=== PATIENT | female | born 1975 | race Caucasian/White ===

== ENCOUNTER 2025-01-27 16:35 | Emergency (ER) | payer OTHER, SELFPAY ==
[2025-01-27 16:39] VITALS: BP 90/58; PULSE 119; RESP 20; TEMP 36.9; O2SAT 97; BMI 30.8
[2025-01-27 17:20] LABS: Hematocrit 46.1 % (37-47); Hemoglobin 16.0 g/dL (12.0-15.0); Immature Granulocytes Count 0.080 X10^3/uL (0.0-0.0); Mean Corp Hgb Conc 34.7 g/dL (32-36); Mean Corpuscular Volume 80.6 fL (81-99); NRBC Flagged by Analyzer 0 % (0-5); POSITIVE COUNT YES; RBC Distribution Width CV 13.2 % (11.6-14.6); RBC Distribution Width SD 38.5 fl (35.1-43.9); Red Blood Count 5.72 M/mm3 (4.2-5.4); White Blood Count 19.8 K/mm3 (4.4-11.0)
[2025-01-27] MEDS: Famotidine 200 MG/20 ML MDV 20 MG in 0.9% Normal Saline (Pres. free 8 ML 300 MG IV (17:21)
[2025-01-27] MEDS: 0.9% Normal Saline (1000mL) 1,000 ML 1000 ML IV (17:21)
--- NOTE | 2025-01-27 17:27 | EDS_ITS ---
HPI History of Present Illness Chief Complaint: Nausea/Vomiting Detail of Chief Complaint: Nausea vomiting and epigastric pain Informant: patient and spouse/S.O. Onset/Context/Timing Onset: Today and Yesterday Context: Sudden Onset Timing: Continuous (Epigastric pain is constant.) and Intermittent (Nausea and vomiting is intermittent. Patient reports 20-30 episodes of vomiting) Quality: Burning sensation in epigastrium worse after vomiting Location: Epigastrium Current Severity: Mild Maximum Severity: Severe Worsened by: Vomiting Relieved by: Nothing Associated Symptoms Associated Symptoms: History of gastroparesis due to type 2 diabetes on Mounjaro Narrative Narrative: Patient is a 49-year-old woman with diabetes complicated with gastroparesis. She was seen at outside facility. She was treated with Bentyl and Reglan. She was discharged with Bentyl and Reglan. She states anytime she attempts to take the Bentyl or Reglan she vomits. She has not noted coffee grounds or blood in her emesis. She denies black or maroon-colored stool. She denies cardiac or respiratory symptoms. She does endorse thirst, dry mouth and lightheadedness. She has had decreased urine output as well. She denies rash. She denies feeling bloated. Patient stated you can pump my stomach to get rid of the contents. Patient states she cannot lie down flat because she gets dizziness because of her POTS. I informed her this is a normal symptom for POTS. She was asked if she has had any head trauma. She states she did fall and hit the back of her head. Suspect that she has a postconcussive syndrome since this happened several days ago. When she describes vertigo. She also has nausea with this. Prior similar symptoms: Yes Recent Illness/Hospitalization: Yes [facility] Medical History Gregg disease Anxiety Type 2 diabetes mellitus Cholecystectomy planned Home Medications ?Medication ?Instructions ?Recorded ?Last Taken ?Type metoclopramide HCl 10 mg tablet 10 mg PO 4X/DAY PRN He adache #30 01/27/25 Unknown Rx tabs Allergy/AdvReac Type Severity Reaction Status Date / Time amoxicillin (From Augmentin) Allergy Abd Verified 01/27/25 16:39 cramps/diarrhea cefaclor (From Ceclor) Allergy Abd Verified 01/27/25 16:39 cramps/diarrhea cefuroxime (From Ceftin) Allergy Abd Verified 01/27/25 16:39 cramps/diarrhea clarithromycin (From Biaxin) Allergy Abd Verified 01/27/25 16:39 cramps/diarrhea clavulanic acid (From Allergy Abd Verified 01/27/25 16:39 Augmentin) cramps/diarrhea Latex, Natural Rubber Allergy Swelling Verified 01/27/25 16:37 pineapple Allergy Anaphylaxis Verified 01/27/25 16:37 Sulfa (Sulfonamide Allergy Abd Verified 01/27/25 16:39 Antibiotics) cramps/diarrhea sulfamethoxazole (From Allergy Vomiting Verified 01/27/25 16:39 Bactrim) trimethoprim (From Bactrim) Allergy Vomiting Verified 01/27/25 16:39 Surgical History H/O hernia repair Hx of tonsillectomy Social History Smoking Status: Never smoker ROS ROS ED Constitutional Constitutional ED: Denies chills, fever(s), subjective, sweats or weight loss Eyes Eyes: Denies blurry vision or change in vision ENT ENT ED: Reports other Details: Thirst and dry mouth ; Denies ear pain, rhinorrhea or sore throat Cardiovascular Cardiovascular: Denies chest pain, orthopnea, palpitations or racing heartbeat Respiratory/Chest Respiratory/Chest: Denies cough, dyspnea, dyspnea on exertion or orthopnea Gastrointestinal Gastrointestinal: Reports abdominal pain, nausea and vomiting; Denies constipation, diarrhea or melena Genitourinary Genitourinary ED: Reports other Details: Decreased urine output. ; Denies dysuria, hematuria or urinary frequency Musculoskeletal Musculoskeletal: Denies arthralgias or myalgias Neurologic Neurologic: Denies headache(s), paresthesias or weakness Psychiatric Psychiatric: Denies anxiety or depression Hematologic/Lymphatic Hematologic/Lymphatic: Reports systems reviewed and no addt'l complaints, except as documented EXAM Physical Exam Const Vital Signs: 01/27/25 16:39 01/27/25 17:44 01/27/25 18:00 Temperature 98.5 F Temperature Source Oral Pulse Rate 119 H 83 78 Respiratory Rate 20 H 16 Blood Pressure 90/58 L 116/73 103/68 Blood Pressure Mean 68 87 79 Pulse Ox 97 98 Oxygen Delivery Method Room Air Positive well nourished and well developed Constitutional Narrative: Patient is hypotensive and tachycardic. states she is very lightheaded when she stands and almost falls. General Appearance ED: well developed; Negative for pallor HEENT HEENT Narrative: Head is atraumatic normocephalic. There is no clinical signs of basilar skull fracture. Eyes PERRL and EOMs intact bilaterally General Eye ED: Negative for pale conjunctiva or scleral icterus Neck no lymphadenopathy, supple and no JVD Chest Wall inspection of chest normal and palpation of chest normal Resp normal respiratory effort and clear to auscultation bilaterally Cardio regular rate, regular rhythm, S2 normal heart sound and no murmurs Rate: tachycardic GI normal to inspection, nondistended, normoactive bowel sounds, non-distended and no masses; Negative for non-tender or hepatosplenomegaly Palpation: soft and tender epigastric; Negative for guarding or rebound tenderness present Back/Spine no CVA tenderness Extremity normal to inspection General Extremety ED: Negative for edema or tenderness General Extremity: Negative for edema Neuro oriented x3 and CN's II-XII intact bilaterally Sensorium / Orientation: alert Psych mental status grossly normal Skin no rashes or lesions noted, no wounds and skin turgor normal General Skin Exam: Negative for jaundice or pallor MDM MDM MDM Narrative Medical decision making narrative: Since patient has gastroparesis due to diabetes and, found/compound by the fact that she is on Wegovy will treat with Reglan. Clinically she is dehydrated and hypotensive 1 L normal saline was ordered. She also will receive Pepcid for her epigastric pain which I suspect is either esophagitis gastritis from the vomiting. Will review prior records. Blood work was obtained to assess glucose, CO2 anion gap and electrolytes and more importantly her renal function. Lab Data Attestation: I reviewed the patient's lab results. Lab results narrative: White count is elevated 19.8 thousand with a shift. This is probably due to her nausea and vomiting. Electrolyte panel is remarkable for an elevated glucose of 239 with normal elevated anion gap. This most likely is due to ketosis from nausea vomiting and significant dehydration. Patient blood pressure did respond to the liter of normal saline. Labs: Laboratory Results - last 24 hr 01/27/25 17:00 WBC 19.8 H RBC 5.72 H Hgb 16.0 H Hct 46.1 MCV 80.6 L MCH 28.0 MCHC 34.7 RDW Std Deviation 38.5 RDW Coeff of Katrina 13.2 Plt Count TNP MPV TNP Immature Gran % (Auto) 0.400 Neut % (Auto) 87.4 H Lymph % (Auto) 7.2 L [place] % (Auto) 4.5 Eos % (Auto) 0.0 Baso % (Auto) 0.5 Absolute Neuts (auto) 17.3 H Absolute Lymphs (auto) 1.43 Nucleated RBC % 0 Differential Comment SCANNED Platelet Estimate ADEQUATE Sodium 132 L Potassium 4.0 Chloride 93 L Carbon Dioxide 18.2 L Anion Gap 21 H BUN 12 Creatinine 0.77 Estim Creat Clear Calc 116.48 Est GFR (MDRD) Non-Af 95 BUN/Creatinine Ratio 15.7 Glucose 239 H Calcium 9.5 Total Bilirubin 1.14 AST 32 ALT 22 Alkaline Phosphatase 101 Total Protein 8.4 Albumin 4.9 Globulin 3.6 Albumin/Globulin Ratio 1.4 Lipase 15 Serum , Qual NEGATIVE Treatment and Re-Evaluation :: Patient passed p.o. challenge. Discharge Plan Triage Chief Complaint: Nausea/Vomiting ED Provider: Melvin Russell Dx/Rx/DC Orders Clinical Impression: Intractable vomiting with nausea, Hypotension due to hypovolemia, Acute dehydration, Type 2 diabetes mellitus with gastroparesis, Adverse drug reaction, High anion gap metabolic acidosis Instructions: ED Diabetic Gastroparesis Prescriptions: New metoclopramide HCl 10 mg tablet 10 mg PO 4X/DAY PRN (Reason: Headache) Qty: 30 0RF Rx Instructions: 1/2-hour AC and at bedtime Primary Care Provider: Karena Thompson Referrals: Karena Thompson MD [Primary Care Provider, Family Practice] - 3-5 Days Activity Restrictions/Additional Instructions: You will need to talk to your doctor regarding use of Mounjaro be since this is exacerbating your gastroparesis. Take Reglan 10 mg 1/2-hour before meals and at bedtime. Print Language: Faroese Disposition Disposition: Home, Self Care
[2025-01-27 17:34] LABS: Lipase 15 U/L (13-75)
[2025-01-27 17:36] LABS: AST(SGOT) 32 U/L (<=31); Alanine Aminotransfer ALT/SGPT 22 U/L (<=34); Albumin, Serum 4.9 g/dL (3.5-5.0); Alkaline Phosphatase 101 U/L (35-104); Anion Gap 21 (5-15); BUN 12 mg/dL (4-19); BUN/Creat Ratio 15.7 RATIO (10-20); Calcium,Total 9.5 mg/dL (7.6-11.0); Carbon Dioxide 18.2 mmol/L (21.0-32.0); Chloride 93 mmol/L (98-108); Estimated Creatinine Clearance 116.48 ml/min (50-250); Globulin 3.6 g/dL (2.2-4.2); Glucose 239 mg/dL (70-99); Potassium 4.0 mmol/L (3.3-5.1)
[2025-01-27 17:44] VITALS: BP 116/73; PULSE 83; RESP 16; O2SAT 98
[2025-01-27 17:44] LABS: Internal QC Validated? YES +Cl - CLEAR BKGD; Pregnancy, Serum, hCG Quali. NEGATIVE Negative; Record Kit Lot#, Serum Preg. 964736
[2025-01-27 18:00] VITALS: BP 103/68; PULSE 78
[2025-01-27 18:19] LABS: Differential Comment SCANNED
[2025-01-27 19:00] VITALS: BP 115/78; PULSE 92; RESP 16; O2SAT 100
[2025-01-27 19:05] VITALS: BP 116/78; PULSE 98; RESP 16; TEMP 36.6; O2SAT 100
== END 2025-01-27 19:23 | disposition home or self-care (01) ==
PROVIDERS: Emergency Provider Emergency Medicine; PCP Family Medicine; Visit Provider Emergency Medicine
DX: R11.2 Nausea with vomiting, unspecified (principal); E11.43 Type 2 diabetes mellitus with diabetic autonomic (poly)neuropathy; E86.0 Dehydration; E86.1 Hypovolemia; K31.84 Gastroparesis; E87.20 Acidosis, unspecified; T50.915A Adverse effect of multiple unspecified drugs, medicaments and biological substances, initial encounter
CPT/HCPCS: 80053; 83690; 84703; 85025; 96365; 96375; 96376; 99284; A4216

== ENCOUNTER 2025-01-28 02:28 | Inpatient (IN) | payer OTHER, SELFPAY ==
[2025-01-28] VITALS (7 sets, daily range): BP systolic 131–183; BP diastolic 77–101; PULSE 91–100; RESP 15–18; TEMP 36.6–37.3; O2SAT 97–99; BMI 30.7
--- NOTE | 2025-01-28 02:56 | CT_ITS ---
PROCEDURE: ABDOMEN/PELVIS W IV CONT ONLY 01/28/2025 REASON FOR EXAM: ABD PAIN TECHNIQUE: Procedure Code: [id number] Modality: CT Procedure: ABDOMEN/PELVIS W IV CONT ONLY Coronal and Sagittal reconstruction series were provided. CONTRAST: isovue 370 VOLUME: 100 mL One or more dose reduction techniques were used (e.g., Automated exposure control, adjustment of the mA and/or kV according to patient size, use of iterative reconstruction technique. RADIATION DOSE SUMMARY: CTDI Vol 13.71 mGy DLP :713.64 mGycm COMPARISON: none FINDINGS: Average sized liver showing homogenous parenchymal attenuation with fatty changes. prominent extra-hepatic biliary tracts. Cholecystectomy clips. Normal appearance of the pancreas with clear surrounding fat planes. The spleen, adrenal glands and IVC are unremarkable. Splenule noted. Vascular atheromatous calcifications. Both kidneys are of average size and showing smooth outline with preserved parenchymal thickness. No renal calculi. No hydronephrosis. Left renal small hypodense cortical cyst. Distension of the urinary bladder showing no obvious masses. No obvious masses related to the pelvic viscera. Few pelvic phleboli. The appendix is not identified. Colonic fecal loading. The small bowel loops are unremarkable. The stomach is unremarkable. No ascites or free air. No obvious pathologically enlarged lymph nodes. Scanned osseous structures show no osseous destruction. Mild spondylosis. Scanned lung bases show no obvious abnormalities. Elevated left diaphragmatic copula. CT/Abdomen/Pelvis W IV Cont ONLY IMPRESSION: No acute pelvi-abdominal abnormalities, collections or free air. Hepatic steatosis. [facility]
[2025-01-28] MEDS: 0.9% Normal Saline (1000mL) 1,000 ML 999 ML IV ×2 (03:11→06:43)
[2025-01-28 03:24] LABS: Mucous, Urine 0 SEEN /hpf (<or=2+)
[2025-01-28 03:25] LABS: Hematocrit 41.2 % (37-47); Hemoglobin 13.9 g/dL (12.0-15.0); Immature Granulocytes Count 0.090 X10^3/uL (0.0-0.0); Mean Corp Hgb Conc 33.7 g/dL (32-36); Mean Corpuscular Volume 80.3 fL (81-99); Mean Platelet Vol. 10.6 fl (6.2-12.0); NRBC Flagged by Analyzer 0 % (0-5); Platelet Count 376 K/mm3 (150-450); RBC Distribution Width CV 13.2 % (11.6-14.6); RBC Distribution Width SD 38.5 fl (35.1-43.9); Red Blood Count 5.13 M/mm3 (4.2-5.4); White Blood Count 18.6 K/mm3 (4.4-11.0)
[2025-01-28 03:26] LABS: Color, Urine Yellow (Yellow); Glucose, Dipstick 1000 mg/dl (Normal); Leukocyte Esterase-Dipstick Negative /ul (Negative); Nitrite-Dipstick Negative (Negative); Occult Blood-Urine Negative /ul (Negative); Protein-Dipstick 30 mg/dl (Negative); Specific Gravity, Urine 1.020 (1.002-1.030); Urine Bilirubin Dipstick Negative (Negative)
[2025-01-28 03:32] LABS: Ketone-Dipstick 150 mg/dl (Negative)
[2025-01-28 03:38] LABS: Red Blood Cells-Urine 0-5 SEEN /hpf (0-5); Squamous Epithelial Cells - UA 0-5 SEEN /hpf (5-10)
[2025-01-28 03:53] LABS: Lipase 27 U/L (13-75); Magnesium 2.3 mg/dL (1.5-2.2)
[2025-01-28 04:34] LABS: Osmolality, Serum 291 mOsm/KG (275-295)
[2025-01-28] MEDS: Ketorolac 30 MG/ML Syringe IV (04:39)
[2025-01-28] MEDS: Pantoprazole Sodium 40 MG in 0.9% Normal Saline (100mL MB+) 100 ML 300 MG IV (05:29)
[2025-01-28] MEDS: Lidocaine 2% Viscous15 ML UDC 15 ML PO (05:29)
[2025-01-28] MEDS: DiphenhydrAMINE 50 MG/ML Syringe 25 MG IV (05:41)
[2025-01-28 06:24] LABS: AST(SGOT) 32 U/L (<=31); Alanine Aminotransfer ALT/SGPT 16 U/L (<=34); Albumin, Serum 4.4 g/dL (3.5-5.0); Alkaline Phosphatase 92 U/L (35-104); Anion Gap 23 (5-15); BUN 11 mg/dL (4-19); BUN/Creat Ratio 14.9 RATIO (10-20); Bilirubin, Direct 0.30 mg/dL (0.00-0.30); Calcium,Total 8.9 mg/dL (7.6-11.0); Carbon Dioxide 13.4 mmol/L (21.0-32.0); Chloride 94 mmol/L (98-108); Globulin 3.3 g/dL (2.2-4.2); Glucose 276 mg/dL (70-99); Potassium 4.0 mmol/L (3.3-5.1)
[2025-01-28 06:38] LABS: BETA-HYDROXYBUTYRATE 3.6 mmol/L (0.0-0.3)
[2025-01-28 07:10] LABS: SITE Not entered; VBG BASE EXCESS -7 mmol/L (-1.0-3.5); VBG PO2 59 mmHg (25-40); VBG SO2 91 % (50-70); VBG TCO2 19 mmol/L (23-33)
--- NOTE | 2025-01-28 07:43 | EDS_ITS ---
HPI History of Present Illness Chief Complaint: Nausea/Vomiting Informant: patient and spouse/S.O. Narrative Narrative: Patient is a 49-year-old female with past medical history type 2 diabetes as well as gastroparesis secondary to this. She was seen last night secondary to bouts of nausea and vomiting. After receiving IV Reglan and IV fluids patient reported feeling better and was discharged home. She states she was prescribed Reglan. She states around midnight she began with return of symptoms and tried taking Reglan but cannot keep anything down. Therefore with return of intractable nausea and vomiting she presents for evaluation. [facility] Medical History Gregg disease Anxiety Type 2 diabetes mellitus Cholecystectomy planned Home Medications ?Medication ?Instructions ?Recorded ?Last Taken ?Type metoclopramide HCl 10 mg tablet 10 mg PO 4X/DAY PRN He adache #30 01/27/25 Unknown Rx tabs bupropion HCl 150 mg 24 hr tablet, 150 mg PO DAILY Unknown History extended release cyclobenzaprine 10 mg tablet 10 mg PO DAILY PRN pain 0 01/28/25 Unknown History hydroxyzine pamoate 50 mg capsule 50 mg PO TID PRN PRN allergies 01/28/25 Unknown History metformin 500 mg tablet 1,000 mg PO BID 01/28/25 Unk nown History mirtazapine 15 mg tablet 15 mg PO QHS 01/28/25 Unknow n History nitrofurantoin 1 cap PO BID 01/28/25 Unknow n History monohydrate/macrocrystals 100 mg capsule oxycodone 10 mg tablet 10 mg PO TID PRN PRN pain Unknown History sertraline 100 mg tablet 150 mg PO DAILY 01/28/25 Unk nown History sertraline 50 mg tablet 50 mg PO DAILY 01/28/25 Unkn own History tirzepatide 10 mg/0.5 mL 10 mg subcut QWEEK 01/28/25 Unknown History subcutaneous pen injector (Mounjaro) Allergy/AdvReac Type Severity Reaction Status Date / Time amoxicillin (From Augmentin) Allergy Abd Verified 01/27/25 16:39 cramps/diarrhea cefaclor (From Ceclor) Allergy Abd Verified 01/27/25 16:39 cramps/diarrhea cefuroxime (From Ceftin) Allergy Abd Verified 01/27/25 16:39 cramps/diarrhea clarithromycin (From Biaxin) Allergy Abd Verified 01/27/25 16:39 cramps/diarrhea clavulanic acid (From Allergy Abd Verified 01/27/25 16:39 Augmentin) cramps/diarrhea Latex, Natural Rubber Allergy Swelling Verified 01/27/25 16:37 pineapple Allergy Anaphylaxis Verified 01/27/25 16:37 Sulfa (Sulfonamide Allergy Abd Verified 01/27/25 16:39 Antibiotics) cramps/diarrhea sulfamethoxazole (From Allergy Vomiting Verified 01/27/25 16:39 Bactrim) trimethoprim (From Bactrim) Allergy Vomiting Verified 01/27/25 16:39 Surgical History H/O hernia repair Hx of tonsillectomy Social History Smoking Status: Never smoker ROS ROS ED Constitutional Constitutional ED: Reports other Details: Positive fatigue ; Denies chills or fever(s) Eyes Eyes: Denies change in vision ENT ENT ED: Denies sore throat Cardiovascular Cardiovascular: Denies chest pain Respiratory/Chest Respiratory/Chest: Denies cough or dyspnea Gastrointestinal Gastrointestinal: Reports abdominal pain, nausea and vomiting; Denies diarrhea Genitourinary Genitourinary ED: Denies dysuria Musculoskeletal Musculoskeletal: Reports myalgias Integumentary Denies rash Neurologic Neurologic: Denies headache(s) Hematologic/Lymphatic Hematologic/Lymphatic: Denies easy bleeding or easy bruising EXAM Physical Exam Const Vital Signs: 01/28/25 02:29 01/28/25 04:00 01/28/25 06:00 Temperature 98 F Temperature Source Oral Pulse Rate 97 99 97 Respiratory Rate 18 18 18 Blood Pressure 181/101 H 162/82 H 183/80 H Blood Pressure Mean 127 108 114 Pulse Ox 98 97 97 Oxygen Delivery Method Room Air Room Air Room Air 01/28/25 06:42 Temperature 98.2 F Temperature Source Pulse Rate 99 Respiratory Rate 16 Blood Pressure 162/86 H Blood Pressure Mean 111 Pulse Ox 97 Oxygen Delivery Method Positive well nourished and well developed General Appearance ED: well developed; Negative for pallor HEENT Reports dry mucous membranes HEENT Narrative: Normocephalic atraumatic No tongue or lip swelling no oral lesions no airway edema or compromise; no secondary findings in the posterior pharynx to suggest infection Mucous membranes are dry and tacky Mouth ED: Yes dry mucous membranes Mouth: dry mucous membranes Eyes PERRL and EOMs intact bilaterally General Eye ED: Negative for scleral icterus Neck supple Neck Narrative: No nuchal rigidity or meningeal signs Resp normal respiratory effort and clear to auscultation bilaterally Cardio regular rate and regular rhythm Rate: other Other Details: Heart is regular rate and rhythm Radial and carotid pulses are equal and symmetric GI non-distended and no masses GI Narrative: Abdomen is soft and nondistended with hypoactive bowel sounds. There is generalized pain with palpation of the abdomen greatest in the midepigastric region. No voluntary guarding or rigidity or pulsatile mass. No increased tympany noted Auscultation: normoactive bowel sounds and hypoactive bowel sounds Palpation: soft Extremity normal to inspection Neuro oriented x3, CN's II-XII intact bilaterally and no sensory deficits noted Sensorium / Orientation: alert Motor Exam: strength 5/5 throughout Psych Mood & Affect: anxious Skin no rashes or lesions noted and No skin turgor normal Skin Narrative: Skin turgor is increased General Skin Exam: Negative for jaundice or pallor MDM MDM MDM Narrative Medical decision making narrative: Patient arrived to the ER afebrile but was hypertensive. She was seen earlier and reportedly had resolution of symptoms only to return once again after arriving home and not responding to home therapy. With report of diabetes and gastroparesis as well as intractable nausea and vomiting there is high likelihood for an exacerbation of this leading to dehydration. With patient being a diabetic there is concern she could have DKA or HHS. With the elevated white count from the previous ER visit there is concern for potential secondary infection such as colitis or diverticulitis. Therefore repeat labs were obtained as well as a CT scan of the abdomen pelvis with IV contrast. This revealed no sign of acute infection or obstruction. Despite multiple doses of antiemetic medication patient is still having bouts of nausea and vomiting. Her serum bicarb is dropped from 18-13 and her beta hydroxybutyrate is elevated at 3.6. However her pH on the VBG is normal at 7.39 going against DKA. However based on her significant dehydration by physical exam and laboratory findings and the fact that her symptoms have been persistent I do feel her safest option is admission to the hospital for continued care. The patient was evaluated by the hospitalist and does agree to accept the patient to the floor for continued treatment. History & Record Review Discussion w/independent historian: Patient and Significant other Lab Data Attestation: I reviewed the patient's lab results. Labs: Laboratory Results - last 24 hr 01/28/25 01/28/25 03:13 03:15 WBC 18.6 H RBC 5.13 Hgb 13.9 Hct 41.2 MCV 80.3 L MCH 27.1 MCHC 33.7 RDW Std Deviation 38.5 RDW Coeff of Katrina 13.2 Plt Count 376 MPV 10.6 Immature Gran % (Auto) 0.500 Neut % (Auto) 81.6 H Lymph % (Auto) 11.4 L [place] % (Auto) 5.9 Eos % (Auto) 0.1 Baso % (Auto) 0.5 Absolute Neuts (auto) 15.2 H Absolute Lymphs (auto) 2.11 Nucleated RBC % 0 Sodium 130 L Potassium 4.0 Chloride 94 L Carbon Dioxide 13.4 L Anion Gap 23 H BUN 11 Creatinine 0.74 Est GFR (MDRD) Non-Af 100 BUN/Creatinine Ratio 14.9 Glucose 276 H Serum Osmolality 291 Lactic Acid < 1.0 Calcium 8.9 Magnesium 2.3 H Total Bilirubin 1.64 H Direct Bilirubin 0.30 AST 32 ALT 16 Alkaline Phosphatase 92 Total Protein 7.7 Albumin 4.4 Globulin 3.3 Lipase 27 b-Hydroxybutyric mmol/L 3.6 H Urine Color Yellow Urine Clarity Clear Urine pH 6.0 Ur Specific [place] 1.020 Urine Protein 30 H Urine Glucose (UA) 1000 H Urine Ketones 150 A* Urine Occult Blood Negative Urine Nitrite Negative Urine Bilirubin Negative Urine Urobilinogen Normal Ur Leukocyte Esterase Negative Urine RBC 0-5 SEEN Urine WBC 0 SEEN Ur Squamous Epith Cells 0-5 SEEN Urine Bacteria RARE Urine Mucus 0 SEEN ABG Data ABG results: ABG 01/28/25 07:06 Specimen Type JIMMY Sample Site Not entered VBG pH 7.40 VBG pO2 59 H VBG HCO3 18 L VBG Total CO2 19 L VBG O2 Sat (Calc) 91 H VBG Base Excess -7 L POC Mix VBG pCO2 Pt Tmp 29.0 L O2 Delivery Device Not entered Radiography Diagnostic Testing: Clinical Impression(s) from Imaging Studies Abdomen/Pelvis CT 01/28/25 02:56 IMPRESSION: No acute pelvi-abdominal abnormalities, collections or free air. Hepatic steatosis. [facility] Management Discussion w/another healthcare provider: Hospitalist Discharge Plan Dx/Rx/DC Orders Clinical Impression: Type 2 diabetes mellitus with gastroparesis, Intractable vomiting with nausea, Acute dehydration Disposition Disposition: Acute Care Hospital [facility]
--- NOTE | 2025-01-28 08:00 | PCM.HP.STD ---
[facility] - General General Date of Service: 01/28/25 Chief Complaint: nausea and vomiting. [facility] Narrative SERAFIN DONALDSON, is a 49 F with history of gastroparesis who presents with intractable nausea and vomiting. On Friday, patient took her Mounjaro but then on Friday started having nausea and vomiting. Was not persistent but became persistent over the past few days. Patient has been unable to eat since Friday, anything she eats or drinks she immediately vomits up. Patient has been experiencing milder symptoms with the Mounjaro when she takes it weekly but not as severe as this. Usually the symptoms last for few days and then go away but this has persisted. Patient was seen in the emergency room on the and felt better after receiving medications only to come back once the medications wore off. She is having abdominal pain due to the retching. Feels chills. [facility] Medical History (Updated 01/28/25 @ 08:[address] Steve Dockery, DO) Joce-Danlos syndrome Gregg disease Anxiety Type 2 diabetes mellitus Cholecystectomy planned Home Medications ?Medication ?Instructions ?Recorded ?Last Taken ?Type metoclopramide HCl 10 mg tablet 10 mg PO 4X/DAY PRN Headache #30 01/27/25 Unknown Rx tabs bupropion HCl 150 mg 24 hr tablet, 150 mg PO DAILY 01/28/25 Unknown History extended release cyclobenzaprine 10 mg tablet 10 mg PO DAILY PRN pain 01/28/25 Unknown History hydroxyzine pamoate 50 mg capsule 50 mg PO TID PRN PRN allergies 01/28/25 Unknown History metformin 500 mg tablet 1,000 mg PO BID 01/28/25 Unknown History mirtazapine 15 mg tablet 15 mg PO QHS 01/28/25 Unknown History nitrofurantoin 1 cap PO BID 01/28/25 Unknown History monohydrate/macrocrystals 100 mg capsule oxycodone 10 mg tablet 10 mg PO TID PRN PRN pain 01/28/25 Unknown History sertraline 100 mg tablet 150 mg PO DAILY 01/28/25 Unknown History sertraline 50 mg tablet 50 mg PO DAILY 01/28/25 Unknown History tirzepatide 10 mg/0.5 mL 10 mg subcut QWEEK 01/28/25 Unknown History subcutaneous pen injector (Mounjaro) Allergy/AdvReac Type Severity Reaction Status Date / Time amoxicillin (From Augmentin) Allergy Abd Verified 01/27/25 16:39 cramps/diarrhea cefaclor (From Ceclor) Allergy Abd Verified 01/27/25 16:39 cramps/diarrhea cefuroxime (From Ceftin) Allergy Abd Verified 01/27/25 16:39 cramps/diarrhea clarithromycin (From Biaxin) Allergy Abd Verified 01/27/25 16:39 cramps/diarrhea clavulanic acid (From Allergy Abd Verified 01/27/25 16:39 Augmentin) cramps/diarrhea Latex, Natural Rubber Allergy Swelling Verified 01/27/25 16:37 pineapple Allergy Anaphylaxis Verified 01/27/25 16:37 Sulfa (Sulfonamide Allergy Abd Verified 01/27/25 16:39 Antibiotics) cramps/diarrhea sulfamethoxazole (From Allergy Vomiting Verified 01/27/25 16:39 Bactrim) trimethoprim (From Bactrim) Allergy Vomiting Verified 01/27/25 16:39 Family History (Updated 01/28/25 @ 08:[address] Steve Dockery DO) Other Joce-Danlos syndrome Surgical History H/O hernia repair Hx of tonsillectomy Social History (Updated 01/28/25 @ 08:[address] Steve Dockery DO) Smoking Status: Never smoker alcohol intake: never substance use type: marijuana ROS ROS Narrative All review of systems were negative except as mentioned above in the history of present illness and the other review of systems. Vital Signs Vital Signs Vital Signs: 01/28/25 02:29 01/28/25 04:00 01/28/25 06:00 Temperature 36.6 C Temperature Source Oral Pulse Rate 97 99 97 Respiratory Rate 18 18 18 Blood Pressure 181/101 H 162/82 H 183/80 H Blood Pressure Mean 127 108 114 Pulse Ox 98 97 97 Oxygen Delivery Method Room Air Room Air Room Air 01/28/25 06:42 Temperature 36.8 C Temperature Source Pulse Rate 99 Respiratory Rate 16 Blood Pressure 162/86 H Blood Pressure Mean 111 Pulse Ox 97 Oxygen Delivery Method Physical Exam Const Constitutional Narrative: Appears ill. Alert. Cooperative. HEENT normocephalic, head/scalp atraumatic and hearing grossly normal bilaterally Resp normal respiratory effort, no retractions, no use of accessory muscles and clear to auscultation bilaterally Cardio regular rate, regular rhythm, S1 normal heart sound and S2 normal heart sound GI soft to palpation and non-distended Extremity normal to inspection and full ROM Neuro Sensorium / Orientation: awake and alert Results Lab / Micro Data 01/28/25 03:13 01/28/25 03:13 Labs: Laboratory Results - last 24 hr 01/28/25 03:13: WBC 18.6 H, RBC 5.13, Hgb 13.9, Hct 41.2, MCV 80.3 L, MCH 27.1, MCHC 33.7, RDW Std Deviation 38.5, RDW Coeff of Katrina 13.2, Plt Count 376, MPV 10.6, Immature Gran % (Auto) 0.500, Neut % (Auto) 81.6 H, Lymph % (Auto) 11.4 L, Swain % (Auto) 5.9, Eos % (Auto) 0.1, Baso % (Auto) 0.5, Absolute Neuts (auto) 15.2 H, Absolute Lymphs (auto) 2.11, Nucleated RBC % 0, Sodium 130 L, Potassium 4.0, Chloride 94 L, Carbon Dioxide 13.4 L, Anion Gap 23 H, BUN 11, Creatinine 0.74, Est GFR (MDRD) Non-Af 100, BUN/Creatinine Ratio 14.9, Glucose 276 H, Serum Osmolality 291, Lactic Acid < 1.0, Calcium 8.9, Magnesium 2.3 H, Total Bilirubin 1.64 H, Direct Bilirubin 0.30, AST 32, ALT 16, Alkaline Phosphatase 92, Total Protein 7.7, Albumin 4.4, Globulin 3.3, Lipase 27, b-Hydroxybutyric mmol/L 3.6 H 01/28/25 03:15: Urine Color Yellow, Urine Clarity Clear, Urine pH 6.0, Ur Specific [place] 1.020, Urine Protein 30 H, Urine Glucose (UA) 1000 H, Urine Ketones 150 A*, Urine Occult Blood Negative, Urine Nitrite Negative, Urine Bilirubin Negative, Urine Urobilinogen Normal, Ur Leukocyte Esterase Negative, Urine RBC 0-5 SEEN, Urine WBC 0 SEEN, Ur Squamous Epith Cells 0-5 SEEN, Urine Bacteria RARE, Urine Mucus 0 SEEN ABG Data ABG results: ABG 01/28/25 07:06 Specimen Type JIMMY Sample Site Not entered VBG pH 7.40 VBG pO2 59 H VBG HCO3 18 L VBG Total CO2 19 L VBG O2 Sat (Calc) 91 H VBG Base Excess -7 L POC Mix VBG pCO2 Pt Tmp 29.0 L O2 Delivery Device Not entered Imaging Radiology Impression Abdomen/Pelvis CT 01/28/25 02:56 IMPRESSION: No acute pelvi-abdominal abnormalities, collections or free air. Hepatic steatosis. [facility] Assessment & Plan Assessment/Plan (1) Intractable vomiting with nausea: PLAN: Timing suggested this may be correlated with Mounjaro which can have a 12% chance of occurring with patients. Patient is already decided to no longer take that. Patient had issues previously with Ozempic so is probably more of a class effect given her previous intolerance so no further GLP-1 inhibitors. Additionally, patient does take marijuana she has a marijuana card. I strongly advised her not to take any THC containing substances given the symptoms. Compounded on her known diabetic gastroparesis. Patient will be treated with as needed Zofran as well as scheduled metoclopramide. (2) High anion gap metabolic acidosis: PLAN: I do not feel the patient is in any kind a euvolemic DKA but feels more of starvation ketosis IV fluids and supportive management at this time Monitor (3) Type 2 diabetes mellitus with gastroparesis: PLAN: Sliding scale insulin. Check an A1c. Hold metformin for now. PLAN: Plan POTS: Stable VTE prophylaxis with enoxaparin CODE STATUS: Addressed with the patient. Patient wishes to be full code. Discussed with patient significant other at bedside. Charges/Coding Visit Charges Inpatient E&M: 15605 Init Hosp L2
[2025-01-28] MEDS: 0.9% Normal Saline (1000mL) 1,000 ML 150 ML IV ×2 (09:34→17:24)
[2025-01-28] MEDS: 0.9% Saline Lock 10 ML Syringe IV ×2 (09:35→21:31)
[2025-01-28] MEDS: hydrOXYzine PAM 25 MG Capsule 50 MG PO (18:44)
--- NOTE | 2025-01-28 23:10 | PCM.HOSP.N ---
Hospitalist Note Pt requesting additional antiemetics, states Zofran isn't enough. She admits to long hot showers helping her the best at home. She's on scheduled metoclopramide for gastroparesis, failed semaglutide due to severe N/V and is now on tirzepatide, last dose this Friday, with N/V. Haloperidol 1mg PO Q8h PRN for cyclical vomiting is not appropriate at this time due to multiple QT prolonging medications already on board. Promethazine 12.5mg RS PRN Q8h for N/V ordered.
[2025-01-29 02:20] VITALS: BP 132/75; PULSE 94; RESP 15; TEMP 37.1; O2SAT 95
[2025-01-29 02:24] VITALS: BMI 30.6
[2025-01-29] MEDS: proMETHazine 12.5 MG Suppos. RC (04:35)
[2025-01-29 06:09] LABS: Hematocrit 45.7 % (37-47); Hemoglobin 15.1 g/dL (12.0-15.0); Immature Granulocytes Count 0.080 X10^3/uL (0.0-0.0); Mean Corp Hgb Conc 33.0 g/dL (32-36); Mean Corpuscular Volume 81.8 fL (81-99); Mean Platelet Vol. 10.5 fl (6.2-12.0); NRBC Flagged by Analyzer 0 % (0-5); Platelet Count 418 K/mm3 (150-450); RBC Distribution Width CV 13.2 % (11.6-14.6); RBC Distribution Width SD 39.3 fl (35.1-43.9); Red Blood Count 5.59 M/mm3 (4.2-5.4); White Blood Count 16.0 K/mm3 (4.4-11.0)
[2025-01-29 07:05] LABS: Anion Gap 22 (5-15); BUN 6 mg/dL (4-19); BUN/Creat Ratio 8.4 RATIO (10-20); Calcium,Total 8.5 mg/dL (7.6-11.0); Carbon Dioxide 12.5 mmol/L (21.0-32.0); Chloride 97 mmol/L (98-108); Estimated Creatinine Clearance 119.15 ml/min (50-250); Glucose 228 mg/dL (70-99); Potassium 3.5 mmol/L (3.3-5.1)
--- NOTE | 2025-01-29 08:28 | CASEMGMT ---
SHERON BRADY NOTE:? Dx:?Intractable N/V Strata:?2 6 click:?24 No therapy ordered.? No CM consult ordered.? Pt has a PCP listed in [facility]. Medical record reviewed and patient evaluated for identification of discharge planning needs. Patient does not currently demonstrate a need for discharge planning by SHERON BRADY. CM will continue to be available for any discharge needs that may arise, and intervene as indicated. Alyssa PRATER RN, CM
[2025-01-29 08:43] VITALS: BP 162/93; PULSE 110; RESP 18; TEMP 36.7; O2SAT 99
--- NOTE | 2025-01-29 08:48 | NURSING ---
pt blood sugar on dexacom 256
[2025-01-29 11:41] VITALS: BP 140/78; PULSE 100; RESP 16; TEMP 36.6; O2SAT 98
--- NOTE | 2025-01-29 13:10 | PCM.PN.HOSP ---
Reason for Visit Chief Complaint: nausea and vomiting. Subjective Subjective Feeling better today. Still having vomiting but not as frequent and not as consistent when she has clear liquids. Later, after I saw her, requested full liquid diet. Objective Data Objective Data Vital Signs: Vital Signs Temp Pulse Resp BP Pulse Ox O2 Del Method 36.6 C 100 16 140/78 H 98 Room Air 01/29/25 11:41 01/29/25 11:41 01/29/25 11:41 01/29/25 11:41 01/29/25 11:41 01/29/25 11:41 Oxygen Delivery Method Room Air Weight: 99.5 kg Body Mass Index (BMI) 30.6 Intake & Output: Intake and Output for Last 24 Hours 01/27/25 01/28/25 01/29/25 23:59 23:59 23:59 Intake Total 3300.0 / 3300.0 1420 / 1420 Output Total 200 / 200 Balance 3300.0 / 3300.0 1220 / 1220 Lab / Micro Data 01/29/25 05:53 01/29/25 05:53 Labs: Laboratory Results - last 24 hr 01/28/25 16:18: POC Glucose 214 H 01/29/25 05:53: WBC 16.0 H, RBC 5.59 H, Hgb 15.1 H, Hct 45.7, MCV 81.8, MCH 27.0, MCHC 33.0, RDW Std Deviation 39.3, RDW Coeff of Katrina 13.2, Plt Count 418, MPV 10.5, Immature Gran % (Auto) 0.500, Neut % (Auto) 80.6 H, Lymph % (Auto) 12.3 L, [place] % (Auto) 6.2, Eos % (Auto) 0.0, Baso % (Auto) 0.4, Absolute Neuts (auto) 12.9 H, Absolute Lymphs (auto) 1.96, Nucleated RBC % 0, Sodium 132 L, Potassium 3.5, Chloride 97 L, Carbon Dioxide 12.5 L, Anion Gap 22 H, BUN 6, Creatinine 0.75, Estim Creat Clear Calc 119.15, Est GFR (MDRD) Non-Af 98, BUN/Creatinine Ratio 8.4 L, Glucose 228 H, Hemoglobin A1c 10.6 H, Calcium 8.5 Physical Exam Const alert and no apparent distress Constitutional Narrative: Appears much more comfortable today. Afebrile. HEENT head/scalp atraumatic and moist oral mucous membranes Resp normal respiratory effort, no retractions, no use of accessory muscles and clear to auscultation bilaterally Cardio regular rate, regular rhythm, S1 normal heart sound and S2 normal heart sound GI normal to inspection, nondistended, normoactive bowel sounds, soft to palpation, non-tender and non-distended Extremity normal to inspection Assessment & Plan Assessment/Plan (1) Intractable vomiting with nausea: PLAN: Timing suggested this may be correlated with Mounjaro which can have a 12% chance of occurring with patients. Patient is already decided to no longer take that. Patient had issues previously with Ozempic so is probably more of a class effect given her previous intolerance so no further GLP-1 inhibitors. Additionally, patient does take marijuana she has a marijuana card. I strongly advised her not to take any THC containing substances given the symptoms. Compounded on her known diabetic gastroparesis. Patient will be treated with as needed Zofran as well as scheduled metoclopramide. Improved today. Advance to full liquids see how she tolerates that. (2) High anion gap metabolic acidosis: PLAN: I do not feel the patient is in any kind a euvolemic DKA but feels more of starvation ketosis IV fluids and supportive management at this time Monitor Ongoing. (3) Type 2 diabetes mellitus with gastroparesis: PLAN: Sliding scale insulin. Check an A1c. Hold metformin for now. PLAN: Plan POTS: Stable VTE prophylaxis with enoxaparin CODE STATUS: Addressed with the patient. Patient wishes to be full code. Charges/Coding Visit Charges Inpatient E&M: 09893 Subs Hosp L2
[2025-01-29 14:58] VITALS: BP 135/90; PULSE 110; RESP 16; TEMP 36.4; O2SAT 100
[2025-01-29 20:43] VITALS: BP 123/72; PULSE 109; RESP 18; TEMP 36.9; O2SAT 99
[2025-01-29] MEDS: hydrOXYzine PAM 25 MG Capsule 50 MG PO (20:53)
[2025-01-30] VITALS (14 sets, daily range): BP systolic 111–178; BP diastolic 70–101; PULSE 109–125; RESP 10–23; TEMP 36.4–36.7; O2SAT 96–99
[2025-01-30] MEDS: 0.9% Saline Lock 10 ML Syringe IV ×5 (00:10→19:44)
[2025-01-30 04:51] LABS: Hematocrit 43.6 % (37-47); Hemoglobin 14.3 g/dL (12.0-15.0); Immature Granulocytes Count 0.070 X10^3/uL (0.0-0.0); Mean Corp Hgb Conc 32.8 g/dL (32-36); Mean Corpuscular Volume 81.6 fL (81-99); Mean Platelet Vol. 10.8 fl (6.2-12.0); NRBC Flagged by Analyzer 0 % (0-5); Platelet Count 405 K/mm3 (150-450); RBC Distribution Width CV 13.4 % (11.6-14.6); RBC Distribution Width SD 39.4 fl (35.1-43.9); Red Blood Count 5.34 M/mm3 (4.2-5.4); White Blood Count 16.8 K/mm3 (4.4-11.0)
[2025-01-30 04:59] LABS: Anion Gap 22 (5-15); BUN 9 mg/dL (4-19); BUN/Creat Ratio 11.4 RATIO (10-20); Calcium,Total 8.5 mg/dL (7.6-11.0); Carbon Dioxide 11.9 mmol/L (21.0-32.0); Chloride 97 mmol/L (98-108); Estimated Creatinine Clearance 119.15 ml/min (50-250); Glucose 248 mg/dL (70-99); Potassium 3.7 mmol/L (3.3-5.1)
--- NOTE | 2025-01-30 12:07 | PCM.PN.HOSP ---
Reason for Visit Chief Complaint: nausea and vomiting. Subjective Subjective Earlier was in the shower and then when I went and saw her she was sent feeling terrible with severe abdominal pain Objective Data Objective Data Vital Signs: Vital Signs Temp Pulse Resp BP Pulse Ox O2 Del Method 36.6 C 121 H 16 131/87 H 96 Room Air 01/30/25 08:57 01/30/25 08:57 01/30/25 08:57 01/30/25 08:57 01/30/25 08:57 01/30/25 08:57 Oxygen Delivery Method Room Air Weight: 99.5 kg Body Mass Index (BMI) 30.6 Intake & Output: Intake and Output for Last 24 Hours 01/28/25 01/29/25 01/30/25 23:59 23:59 23:59 Intake Total 3300.0 / 3300.0 1670 / 1790 120 / 120 Output Total 200 / 200 Balance 3300.0 / 3300.0 1470 / 1590 120 / 120 Lab / Micro Data 01/30/25 03:33 01/30/25 03:33 Labs: Laboratory Results - last 24 hr 01/30/25 03:33: WBC 16.8 H, RBC 5.34, Hgb 14.3, Hct 43.6, MCV 81.6, MCH 26.8 L, MCHC 32.8, RDW Std Deviation 39.4, RDW Coeff of Katrina 13.4, Plt Count 405, MPV 10.8, Immature Gran % (Auto) 0.400, Neut % (Auto) 80.0 H, Lymph % (Auto) 12.5 L, [place] % (Auto) 6.7, Eos % (Auto) 0.0, Baso % (Auto) 0.4, Absolute Neuts (auto) 13.5 H, Absolute Lymphs (auto) 2.11, Nucleated RBC % 0, Sodium 131 L, Potassium 3.7, Chloride 97 L, Carbon Dioxide 11.9 L, Anion Gap 22 H, BUN 9, Creatinine 0.75, Estim Creat Clear Calc 119.15, Est GFR (MDRD) Non-Af 98, BUN/Creatinine Ratio 11.4, Glucose 248 H, Calcium 8.5 Physical Exam Const Constitutional Narrative: Appears uncomfortable but not diaphoretic with her her lying on her right side. HEENT head/scalp atraumatic Resp normal respiratory effort, no retractions, no use of accessory muscles and clear to auscultation bilaterally Cardio regular rate, regular rhythm, S1 normal heart sound and S2 normal heart sound GI normal to inspection, nondistended, normoactive bowel sounds, soft to palpation, non-tender, non-distended and hepatosplenomegaly Neuro Sensorium / Orientation: awake and alert Assessment & Plan Assessment/Plan (1) Metabolic acidosis: PLAN: Ongoing since admission with the patient's anion gap being persistently elevated. She did have a venous blood gas on the showed pH of 7.4, pCO2 of 18. Glucose has been high and today was 248 on her BMP. And her A1c is 10.6. She is a type II diabetic on gabapentin. Her clinical parents has been variable where she was actually looking pretty good on the so with her feeling much more miserable today I will like to treat her for diabetic ketoacidosis so not clear she does have DKA. Will check an ABG. Her abdominal exam is unremarkable at this time, though the patient does look miserable. So patient will be on insulin drip and the DKA protocol. Patient denies Jardiance use. (2) Intractable vomiting with nausea: PLAN: Etiology of this is unclear. It may be multifactorial due to known history of gastroparesis as well as intolerance to GLP-1 inhibitors as the timing, per her description, was day after taking her Mounjaro. But also patient does ingest THC related compounds (see below for OARRS review). Though with given the what appears to be large quantity of marijuana, compounds there may be a bigger component of cannabinoid hyperemesis syndrome than previously thought. Timing suggested this may be correlated with Mounjaro which can have a 12% chance of occurring with patients. Patient is already decided to no longer take that. Patient had issues previously with Ozempic so is probably more of a class effect given her previous intolerance so no further GLP-1 inhibitors. Additionally, patient does take marijuana she has a marijuana card. I strongly advised her not to take any THC containing substances given the symptoms. Compounded on her known diabetic gastroparesis. Patient will be treated with as needed Zofran as well as scheduled metoclopramide. Improved on but only to feel worse on the . Continue with the supportive treatment at this point in time. Pulling up her OARRS, she last received oxycodone from [facility] in [place], [place] on December 16, 2024, dispensed #90. She had been receiving prescription for oxycodone from [facility] previously, but none filled that I can see in January. Since patient has a history of gastroparesis and with her ongoing symptoms I am going to discontinue the oxycodone as though it may not be the primary cause of her terrible nausea and vomiting it may be contributing. (OARRS as many numerous prescriptions for what appears to be marijuana substances including blue blockers, blue raspberry, [place]antillo gummy lacey, sour watermelon Gummies, rove 510 Klever, tart valdovinos gummy Pearll, CBS honey, RSO capsules, blueberry lemonade gummy Lacey, amongst others). 7 different, THC products in January and 15 in December, please refer to OARRS for further details. (3) Type 2 diabetes mellitus with gastroparesis: PLAN: Sliding scale insulin. Poorly controlled. Patient metabolic acidosis really unclear with type II diabetic with a glucose of 248 that she is actually in DKA but may treat her as such at this point in time given her lack of improvement. PLAN: Plan POTS: Stable Chronic pain: As above, patient has received oxycodone and Percocets through [facility]. Will request records to review. VTE prophylaxis with enoxaparin CODE STATUS: Addressed with the patient. Patient wishes to be full code. Greater than 50 minutes interaction with patient, discussing with nursing, reviewing OARRS, transferring the patient to the intensive care unit. Charges/Coding Visit Charges Inpatient E&M: 99085 Subs Hosp L3
[2025-01-30 12:47] LABS: Allen Test Positive; Base Excess -16 mmol/L (-2 to +2); FI02 21.0; PO2 107 mmHG (75-100); SITE R Radial; SO2 98 % (95-99)
[2025-01-30] MEDS: Dext 5%-0.45% NS 1,000 ML 150 ML IV ×2 (12:57→20:09)
[2025-01-30] MEDS: Insulin Lispro 100 UNIT in 0.9% Normal Saline (100mL Bag) 99 ML 5.2 UNIT CONT INF (12:59)
[2025-01-30] MEDS: hydrOXYzine PAM 25 MG Capsule 50 MG PO (16:11)
[2025-01-30 17:43] LABS: Anion Gap 21 (5-15); Carbon Dioxide 13.3 mmol/L (21.0-32.0); Chloride 99 mmol/L (98-108); Magnesium 2.4 mg/dL (1.5-2.2); Potassium 3.1 mmol/L (3.3-5.1)
[2025-01-30] MEDS: proMETHazine 12.5 MG Suppos. RC (18:12)
[2025-01-30] MEDS: Potassium Phosphate 45 MM in 0.9% Normal Saline (500mL Bag) 500 ML 85 MM IV (19:07)
[2025-01-30 23:07] LABS: Anion Gap 17 (5-15); Carbon Dioxide 14.6 mmol/L (21.0-32.0); Chloride 103 mmol/L (98-108); Magnesium 2.2 mg/dL (1.5-2.2); Potassium 3.3 mmol/L (3.3-5.1)
[2025-01-31] VITALS (28 sets, daily range): BP systolic 136–182; BP diastolic 83–100; PULSE 91–122; RESP 10–24; TEMP 36.9–37.3; O2SAT 96–100
[2025-01-31] MEDS: 0.9% Saline Lock 10 ML Syringe IV ×5 (00:10→23:06)
[2025-01-31] MEDS: Dext 5%-0.45% NS 1,000 ML 150 ML IV ×2 (01:58→09:03)
[2025-01-31 03:11] LABS: Anion Gap 15 (5-15); Carbon Dioxide 16.5 mmol/L (21.0-32.0); Chloride 104 mmol/L (98-108); Magnesium 2.3 mg/dL (1.5-2.2); Potassium 3.3 mmol/L (3.3-5.1)
[2025-01-31] MEDS: Potassium Chloride 10mEq/100mL 10 MEQ/100 ML IV.SOLN. 100 MEQ IV BOLUS ×4 (06:49→11:13)
[2025-01-31 06:53] LABS: Anion Gap 14 (5-15); Carbon Dioxide 18.1 mmol/L (21.0-32.0); Chloride 102 mmol/L (98-108); Magnesium 2.2 mg/dL (1.5-2.2); Potassium 3.0 mmol/L (3.3-5.1)
[2025-01-31] MEDS: Insulin Glargine-YFGN 100 UNIT/ML Pen 15 UNIT SC (10:07)
--- NOTE | 2025-01-31 10:39 | CASEMGMT ---
SHERON BRADY Assessment Pt is now admitted under critical care status. Face to Face with patient for initial transition planning/care coordination assessment. SHERON BRADY introduced self and role at [facility], pt voices understanding. Pt is A&Ox4 and is resting comfortably in bed and is calm. Care providers, pharmacy, and demographics verified. Admitting dx:N/V LACE Strata: 2 PCP: Karena Thompson Specialists: Daniel (PM Nabeel), Shirley (Ortho), Tin Stacker out of [place] (pt unable to recall name), POTS specialist through [facility] (pt unable to recall name) Preferred Pharmacy: [facility] Insurance: [employer] Prescription Benefit: Yes LNOK: Naeem ([place]) Living Arrangements: Pt lives with her SO and his 2 children (Ages 16 and 17) in a 2 story home with 3 steps to enter ADLs/IADLs: Indep. 6-Click score is 24 Transportation: Self, SO DME: CBGM with sensors as well as a functioning BGM with sufficient testing supplies including lancets, test strips, and EtOH swabs.?Pt states that she has enough pen needles for insulin shots if needed. Denies further DME needs HHC/SNF: denies hx or needs THC Use: See hospitalist progress notes. At this time, the pt declines wanting any cessation resources or SW follow up. Pt?s goal: Home Plan: Home with pt's SO once medically ready, anticipate no additional needs. Pt states that she plans to follow up with her specialists as an OP after DC. Pt denies the need for any additional therapy or resources and states that she feel safe returning home with her family once medically ready and denies any further questions or concerns at this time. Batsheva Landaverde RN, CM
[2025-01-31] MEDS: 0.9% Normal Saline (250mL Bag) 250 ML 15 ML IV (11:13)
--- NOTE | 2025-01-31 13:38 | PN_ITS ---
Subjective Subjective Patient seen and examined. She says she felt much better today and her nausea and vomiting had improved. However frequently later in the day she did develop nausea and vomiting again. Review of systems otherwise negative. Her BP is elevated in the 170s systolic. Objective Data Objective Data Vital Signs: Vital Signs Temp Pulse Resp BP Pulse Ox O2 Del Method 99.1 F 102 H 22 H 175/91 H 99 Room Air 01/31/25 10:00 01/31/25 12:00 01/31/25 12:00 01/31/25 12:00 01/31/25 12:00 01/31/25 12:00 Oxygen Delivery Method Room Air Weight: 219 lb 5.759 oz Body Mass Index (BMI) 30.6 Intake & Output: Intake and Output for Last 24 Hours 01/29/25 01/30/25 01/31/25 23:59 23:59 23:59 Intake Total 1670 / 1790 1153.50 / 1155.41 3163.52 / 3163.52 Output Total 200 / 200 550 / 550 Balance 1470 / 1590 603.50 / 605.41 3163.52 / 3163.52 Lab / Micro Data 01/30/25 03:33 01/31/25 06:00 Labs: Laboratory Results - last 24 hr 01/30/25 17:15: Sodium 133, Potassium 3.1 L, Chloride 99, Carbon Dioxide 13.3 L, Anion Gap 21 H, Phosphorus 1.4 L*, Magnesium 2.4 H 01/30/25 21:55: Sodium Cancelled, Potassium Cancelled, Chloride Cancelled, Carbon Dioxide Cancelled, Anion Gap Cancelled, Phosphorus Cancelled, Magnesium Cancelled 01/30/25 22:40: Sodium 134, Potassium 3.3, Chloride 103, Carbon Dioxide 14.6 L, Anion Gap 17 H, Phosphorus 2.0 L, Magnesium 2.2 01/31/25 02:30: Sodium 136, Potassium 3.3, Chloride 104, Carbon Dioxide 16.5 L, Anion Gap 15, Phosphorus 2.9, Magnesium 2.3 H 01/31/25 06:00: Sodium 134, Potassium 3.0 L, Chloride 102, Carbon Dioxide 18.1 L , Anion Gap 14, Phosphorus 1.8 L, Magnesium 2.2 01/31/25 08:18: POC Glucose 149 H 01/31/25 09:39: POC Glucose 175 H 01/31/25 11:03: POC Glucose 118 H Physical Exam Const alert, oriented x3 and no apparent distress General Appearance: cooperative HEENT normocephalic, head/scalp atraumatic, moist oral mucous membranes and oropharynx normal Eyes EOMs intact bilaterally Neck supple Lymph Lymphatic: no lymphedema noted Resp normal respiratory effort, normal air movement and clear to auscultation bilaterally Cardio regular rate, regular rhythm, S1 normal heart sound, S2 normal heart sound and no murmurs GI normal to inspection, nondistended, normoactive bowel sounds, soft to palpation, non-tender and non-distended Extremity normal capillary refill General Extremity: no tenderness to palpation of joints or extremities Skin General Skin Exam: no breakdown and turgor normal Neuro no focal motor deficits and no sensory deficits noted Motor Exam: strength 5/5 throughout and general weakness Psych thought process normal and cooperative Appearance: appropriate Assessment & Plan Assessment/Plan (1) Type 2 diabetes mellitus with gastroparesis: (2) Acute dehydration: (3) Intractable vomiting with nausea: PLAN: Plan #intractable nausea and vomiting * this is in the setting of known gastroparesis. She is also on mounjaro though she says she doesnt want to take this anymore * she also has a histoyr of chronic marijuana dependence. These can all cause intractable nausea and vomiting. * on IV zofran. Phenergan added on. * hydrage gently with iVF * #Anion gap metabolic acidosis * was treated presumptively for DKA in the setting of anion gap metabolic acidosis, though there was no clear evidence of DKA * anion gap has closed x 2 and on onsulin drip. Insulin drip dc'd and patient started on SQ lantus 15 units daily. * moderate to high dose sliding scale. Accuchecks ACHS. * her A1C is 10.6. Patient says she does not want to be on mounjaro anymore * #Hypokalemia: K today is 3. Will replace and trend. #TYpe 2 diabetes mellitus * Has associated history of gastroparesis. Treated for DKA as above. Started on Lantus 15 units daily today as patient did not want to be on Mounjaro anymore. * Insulin sliding scale. Tactics ACHS. #History of chronic pain: * On oxycodone and Percocet. * Receives medication as prescribed by [facility] per OARRS. * #DVT prophylaxis: lovenox Code status: full code Charges/Coding Visit Charges Inpatient E&M: 65955 Subs Hosp L2
[2025-01-31 17:39] LABS: Anion Gap 21 (5-15); BUN 5 mg/dL (4-19); BUN/Creat Ratio 7.9 RATIO (10-20); Calcium,Total 8.7 mg/dL (7.6-11.0); Carbon Dioxide 15.3 mmol/L (21.0-32.0); Chloride 98 mmol/L (98-108); Estimated Creatinine Clearance 131.42 ml/min (50-250); Glucose 261 mg/dL (70-99); Potassium 3.4 mmol/L (3.3-5.1)
--- NOTE | 2025-01-31 18:47 | PCM.HOSP.N ---
Hospitalist Note Pt's AG open at 21 and HCO3 down to 15.3 after being off of the insulin drip since 1100 today and receiving glargine 15units SC at 1007. She had an episode of emesis after lunch and has dry heaves this afternoon. Fingerstick glucometer 249 at supper. She is asking for anti-anxiety medication as she has admitted to nrs that she usually takes CBD gummies for this. Per nrsg, she has been refusing her sertraline stating it causes gastroparesis, but she has been taking her mirtazapine QHS. She already has hydroxyzine ordered, I encouraged nrsg to give this for anxiety as well. In attempts to fend off returning back on to insulin drip, I ordered a bolus of LR x1L, NS w/[id number] at 150ml/hr, and increased SSI to high dosing from med-high; ordered STAT ABG per Dr. Balbuena's recommendation.
[2025-01-31] MEDS: hydrOXYzine PAM 25 MG Capsule 50 MG PO (19:03)
[2025-01-31] MEDS: Lactated Ringers 1,000 ML 999 ML IV (19:04)
[2025-01-31] MEDS: KCL 20MEQ in 0.9% NS 20 MEQ/1,000 ML IV.SOLN. 150 MEQ IV (20:30)
[2025-01-31 20:59] LABS: Allen Test Positive; Base Excess -4 mmol/L (-2 to +2); FI02 21.0; PO2 86 mmHG (75-100); SITE R Radial; SO2 97 % (95-99)
[2025-02-01] VITALS (28 sets, daily range): BP systolic 115–180; BP diastolic 72–101; PULSE 89–134; RESP 11–112; TEMP 36.4–36.7; O2SAT 96–100; BMI 31.4
[2025-02-01] MEDS: 0.9% Saline Lock 10 ML Syringe IV ×7 (00:04→23:55)
[2025-02-01] MEDS: hydrOXYzine PAM 25 MG Capsule 50 MG PO ×3 (03:07→21:56)
[2025-02-01] MEDS: KCL 20MEQ in 0.9% NS 20 MEQ/1,000 ML IV.SOLN. 150 MEQ IV ×2 (03:07→10:54)
[2025-02-01 03:56] LABS: Hematocrit 38.8 % (37-47); Hemoglobin 13.8 g/dL (12.0-15.0); Immature Granulocytes Count 0.050 X10^3/uL (0.0-0.0); Mean Corp Hgb Conc 35.6 g/dL (32-36); Mean Corpuscular Volume 77.8 fL (81-99); Mean Platelet Vol. 10.1 fl (6.2-12.0); NRBC Flagged by Analyzer 0 % (0-5); Platelet Count 327 K/mm3 (150-450); RBC Distribution Width CV 13.4 % (11.6-14.6); RBC Distribution Width SD 37.9 fl (35.1-43.9); Red Blood Count 4.99 M/mm3 (4.2-5.4); White Blood Count 14.5 K/mm3 (4.4-11.0)
[2025-02-01 05:14] LABS: Anion Gap 18 (5-15); BUN 5 mg/dL (4-19); BUN/Creat Ratio 8.5 RATIO (10-20); Calcium,Total 7.8 mg/dL (7.6-11.0); Carbon Dioxide 13.8 mmol/L (21.0-32.0); Chloride 102 mmol/L (98-108); Estimated Creatinine Clearance 168.61 ml/min (50-250); Glucose 235 mg/dL (70-99); Potassium 3.4 mmol/L (3.3-5.1)
[2025-02-01] MEDS: Insulin Glargine-YFGN 100 UNIT/ML Pen 15 UNIT SC (08:12)
[2025-02-01 09:20] LABS: Anion Gap 20 (5-15); BUN 5 mg/dL (4-19); BUN/Creat Ratio 8.3 RATIO (10-20); Calcium,Total 8.2 mg/dL (7.6-11.0); Carbon Dioxide 13.6 mmol/L (21.0-32.0); Chloride 101 mmol/L (98-108); Estimated Creatinine Clearance 145.89 ml/min (50-250); Glucose 268 mg/dL (70-99); Potassium 3.7 mmol/L (3.3-5.1)
--- NOTE | 2025-02-01 09:21 | NS ---
ICU rounded in patient's room. Discussed pt current diet: cardiac/1800 calorie controlled. Pt states she has POTS and need sodium. This RD reviewed pt's current/ past medical history. Diet adjusted to consistent carbohydrate.
--- NOTE | 2025-02-01 10:45 | PN_ITS ---
Subjective Subjective Patient seen and examined. She said she felt better today and had not thrown up since yesterday. Review of systems is otherwise negative. She is tachycardic today and her RR is 23. Review of systems is otherwise negative. Objective Data Objective Data Vital Signs: Vital Signs Temp Pulse Resp BP Pulse Ox O2 Del Method 97.6 F L 113 H 23 H 147/88 H 99 Room Air 02/01/25 08:00 02/01/25 09:00 02/01/25 09:00 02/01/25 09:00 02/01/25 09:00 02/01/25 09:00 Oxygen Delivery Method Room Air Weight: 224 lb 13.944 oz Body Mass Index (BMI) 31.4 Intake & Output: Intake and Output for Last 24 Hours 01/30/25 01/31/25 02/01/25 23:59 23:59 23:59 Intake Total 1153.50 / 1155.41 4163.52 / 4283.52 1132.5 / 1132.5 Output Total 550 / 550 Balance 603.50 / 605.41 4163.52 / 4283.52 1132.5 / 1132.5 Lab / Micro Data 02/01/25 03:45 02/01/25 08:45 Labs: Laboratory Results - last 24 hr 01/31/25 09:39: POC Glucose 175 H 01/31/25 11:03: POC Glucose 118 H 01/31/25 17:05: Sodium 135, Potassium 3.4, Chloride 98, Carbon Dioxide 15.3 L, A nion Gap 21 H, BUN 5, Creatinine 0.68 L, Estim Creat Clear Calc 131.42, Est GFR (MDRD) Non-Af 107, BUN/Creatinine Ratio 7.9 L, Glucose 261 H, Calcium 8.7 01/31/25 17:30: POC Glucose 249 H 01/31/25 21:34: POC Glucose 177 H 02/01/25 03:45: WBC 14.5 H, RBC 4.99, Hgb 13.8, Hct 38.8, MCV 77.8 L, MCH 27.7, MCHC 35.6 D, RDW Std Deviation 37.9, RDW Coeff of Katrina 13.4, Plt Count 327, MPV 10.1, Immature Gran % (Auto) 0.300, Neut % (Auto) 76.0 H, Lymph % (Auto) 15.5 L, [place] % (Auto) 7.6, Eos % (Auto) 0.1, Baso % (Auto) 0.5, Absolute Neuts (auto) 11.0 H, Absolute Lymphs (auto) 2.25, Nucleated RBC % 0, Sodium 134, Potassium 3.4, Chloride 102, Carbon Dioxide 13.8 L, Anion Gap 18 H, BUN 5, Creatinine 0.53 L, Estim Creat Clear Calc 168.61, Est GFR (MDRD) Non-Af 114, BUN/Creatinine Ratio 8.5 L, Glucose 235 H, Calcium 7.8 02/01/25 08:03: POC Glucose 264 H 02/01/25 08:45: Sodium 134, Potassium 3.7, Chloride 101, Carbon Dioxide 13.6 L, Anion Gap 20 H, BUN 5, Creatinine 0.62 L, Estim Creat Clear Calc 145.89, Est GFR (MDRD) Non-Af 110, BUN/Creatinine Ratio 8.3 L, Glucose 268 H, Calcium 8.2 ABG Data ABG results: ABG 01/31/25 20:55 Specimen Type ART Sample Site R Radial pH 7.47 H Bicarbonate Actual 20.1 L Total CO2 21 Base Excess -4 L O2 Saturation 97 O2 % 21.0 ABG pCO2 27.5 L ABG pO2 86 [place] Test Positive O2 Delivery Device Room Air Vent Mode Not entered Physical Exam Const alert, oriented x3 and no apparent distress Constitutional Narrative: looks much better today. General Appearance: cooperative HEENT normocephalic, head/scalp atraumatic, hearing grossly normal bilaterally, moist oral mucous membranes and oropharynx normal Eyes EOMs intact bilaterally Neck supple Lymph Lymphatic: no lymphedema noted Resp Resp Narrative: mildly diminished breath sounds bibasally, mild tachypnea. NO wheezes or crackles. Cardio regular rhythm, S1 normal heart sound, S2 normal heart sound and no murmurs Cardio Narrative: tachycardic GI normal to inspection, nondistended, normoactive bowel sounds, soft to palpation, non-tender, non-distended and hepatosplenomegaly Extremity normal to inspection, full ROM and normal capillary refill General Extremity: no tenderness to palpation of joints or extremities Skin General Skin Exam: no breakdown and turgor normal Neuro no focal motor deficits and no sensory deficits noted Sensorium / Orientation: awake and alert Motor Exam: strength 5/5 throughout and general weakness Psych thought process normal and cooperative Appearance: appropriate Assessment & Plan Assessment/Plan (1) Type 2 diabetes mellitus with gastroparesis: (2) Acute dehydration: (3) Intractable vomiting with nausea: PLAN: Plan #intractable nausea and vomiting * this is in the setting of known gastroparesis. She is also on mounjaro though she says she doesnt want to take this anymore * she also has a histoyr of chronic marijuana dependence. These can all cause intractable nausea and vomiting. * on IV zofran. Phenergan added on. * hydrage gently with iVF * #Anion gap metabolic acidosis * was treated presumptively for DKA in the setting of anion gap metabolic acidosis, though there was no clear evidence of DKA * anion gap has closed x 2 and on onsulin drip. Insulin drip dc'd and patient started on SQ lantus 15 units daily. * moderate to high dose sliding scale. Accuchecks ACHS. * her A1C is 10.6. Patient says she does not want to be on mounjaro anymore * Anion gap closed yesterday but opened up again. Bicarb is 13 today and anion gap is 20. Will place patient on bicarb drip. Blood sugar is only 268. Continue hydration with IV fluids. Lactic acid also ordered. * #Hypokalemia: Resolved. Potassium was 3.7 today. #TYpe 2 diabetes mellitus * Has associated history of gastroparesis. Treated for DKA as above. On Lantus 15 units daily. * Insulin sliding scale. Accuchecks ACHS. #History of chronic pain: * On oxycodone and Percocet. * Receives medication as prescribed by Tatiana Nova per SHANNA. * #DVT prophylaxis: lovenox Code status: full code Charges/Coding Visit Charges Inpatient E&M: 34714 Subs Hosp L2
[2025-02-01] MEDS: Sodium Bicarbonate 50 MEQ in Dextrose 5%-Water (1000mL Bag) 1,000 ML 100 MEQ IV ×2 (11:10→21:56)
--- NOTE | 2025-02-01 23:14 | PCM.HOSP.N ---
Hospitalist Note Patient with onset chest pain, EKG with ? PAF RVR, rate 130s, will administer cardizem 20 mg IV x 1 and reassess repeat EKG for rhythm when she slowed some, magnesium requested, will cycle cardiac enzymes.
--- NOTE | 2025-02-01 23:34 | EKG12_ITS ---
Test Reason : POST CARDIZEM Blood Pressure : */* mmHG Vent. Rate : 98 BPM Atrial Rate : * BPM P-R Int : * ms QRS Dur : 84 ms QT Int : 402 ms P-R-T Axes : * -25 76 degrees QTcB Int : 513 ms Critical Test Result: STEMI AGE AND GENDER SPECIFIC ECG ANALYSIS Atrial fibrillation Inferior infarct , possibly acute T wave abnormality, consider lateral ischemia Prolonged QT ACUTE MS / STEMI Consider right ventricular involvement in acute inferior infarct Abnormal ECG When compared with ECG of 01-Feb-2025 22:57, MANUAL COMPARISON REQUIRED DATA IS UNCONFIRMED Confirmed by LEXI BRANTLEY, ISRAEL ([id number]), editorial writer CRICKET KATHLEEN ([id number]) on 02/03/2025 7:19:56 AM Referred By: LUCIANO Confirmed By: ISRAEL ELLIOTT MD
[2025-02-01] MEDS: fentaNYL 100 MCG/2 ML Ampul 25 MCG IV (23:52)
[2025-02-02] VITALS (29 sets, daily range): BP systolic 88–167; BP diastolic 59–98; PULSE 78–118; RESP 11–24; TEMP 36.3–36.6; O2SAT 95–100; BMI 31.3
--- NOTE | 2025-02-02 00:16 | EKG12_ITS ---
Test Reason : ARRHYTHMIA Blood Pressure : */* mmHG Vent. Rate : 133 BPM Atrial Rate : * BPM P-R Int : * ms QRS Dur : 90 ms QT Int : 352 ms P-R-T Axes : * -9 95 degrees QTcB Int : 523 ms Critical Test Result: STEMI AGE AND GENDER SPECIFIC ECG ANALYSIS Atrial fibrillation with rapid ventricular response with premature ventricular or aberrantly conducted complexes Inferior infarct , possibly acute T wave abnormality, consider lateral ischemia ACUTE OH / STEMI Consider right ventricular involvement in acute inferior infarct Abnormal ECG When compared with ECG of 30-Jan-2025 16:58, MANUAL COMPARISON REQUIRED DATA IS UNCONFIRMED Confirmed by LEXI BRANTLEY, ISRAEL ([id number]), state editor CRICKET KATHLEEN ([id number]) on 02/03/2025 7:20:10 AM Referred By: Confirmed By: ISRAEL ELLIOTT MD
--- NOTE | 2025-02-02 00:38 | ECHOCS_ITS ---
Reason For Study Reason For Study: AFIB/FLUTTER Procedure This was a 2D Doppler, Color Flow transthoracic echocardiogram. The study was technically difficult. The patient was scanned supine. Due to body habitus. Contrast injection was performed. Exam performed portable in ICU/CCU. Left Ventricle Normal LV size. Left ventricular systolic function is normal. The left ventricular ejection fraction is 55 %. Mild segmental systolic dysfunction (see wall motion). Infero-Basal: Akinetic. The rest of the wall segments are normal. Right Ventricle Normal RV size. Normal systolic function. Atria Normal left atrium. Normal right atrium. Mitral Valve Normal mitral valve. Tricuspid Valve Normal tricuspid valve. Aortic Valve Trisinus/trileaflet aortic valve. Pulmonic Valve The pulmonic valve is not well visualized. Great Vessels Normal aortic root. The pulmonary artery is normal size. Normal inferior vena cava. Pericardium/Pleural No pericardial effusion. MMode/2D Measurements & Calculations LVIDd: 3.6 cm FS: 37.8 % Ao root diam: 3.9 cm LVIDs: 2.3 cm RVDd: 2.5 cm LAV(MOD-bp): 39.7 ml LVAd ap4: 26.5 cm2 SV(MOD-sp4): 46.9 ml LAV(MOD-bp) Indexed: 18.0 ml/m2 LVLd ap4: 8.3 cm SI(MOD-sp4): 21.2 ml/m2 LAV(MOD-sp2): 40.6 ml EDV(MOD-sp4): 70.2 ml LAV(MOD-sp4): 35.5 ml EDV(sp4-el): 71.7 ml LVAs ap4: 13.0 cm2 LVLs ap4: 6.5 cm ESV(MOD-sp4): 23.3 ml ESV(sp4-el): 22.2 ml EF(MOD-sp4): 66.9 % EF(sp4-el): 69.0 % SV(sp4-el): 49.4 ml LA A4 area: 14.5 cm2 LA dimension(2D): 5.1 cm RA A4 area: 13.4 cm2 TAPSE: 1.7 cm Time Measurements MV dec time: 0.15 sec Doppler Measurements & Calculations MV E max eyal: 60.2 cm/sec Lat Peak E' Eyal: 8.9 cm/sec Med Peak E' Eyal: 8.0 cm/sec MV A max eyal: 92.8 cm/sec E/E' lat: 6.7 E/E' med: 7.6 MV E/A: 0.65 MV V2 max: 107.2 cm/sec MV P1/2t max eyal: 65.7 cm/sec Ao V2 max: 127.5 cm/sec MV max P.6 mmHg MV P1/2t: 36.9 msec Ao max P.5 mmHg MV V2 mean: 55.7 cm/sec Ao V2 mean: 88.8 cm/sec MV mean P.4 mmHg MV dec slope: 521.8 cm/sec2 Ao mean P.5 mmHg MV V2 VTI: 16.6 cm MVA(P1/2t): 6.0 cm2 Ao V2 VTI: 20.0 cm AV (velocity ratio): 0.88 LV V1 max: 100.1 cm/sec PA V2 max: 129.1 cm/sec TR max eyal: 241.8 cm/sec LV V1 max P.0 mmHg TR max P.4 mmHg LV V1 mean P.4 mmHg LV V1 mean: 74.6 cm/sec LV V1 VTI: 17.7 cm ECHO/Echo Complete W/ Contrast Interpretation Summary Normal LV size. Left ventricular systolic function is normal. The left ventricular ejection fraction is 55 %. Infero-Basal: Akinetic. Contrast injection was performed. Ordering Physician: Swetha Bach Referring Physician: Karena Thompson Performed By: Kylah Johnson, LORENZA, RVT
[2025-02-02 00:40] LABS: Magnesium 1.9 mg/dL (1.5-2.2)
[2025-02-02 00:45] LABS: Troponin T High Sensitivity 176 ng/L (<=14)
[2025-02-02] MEDS: Sodium Bicarbonate 50 MEQ in Dextrose 5%-Water (1000mL Bag) 1,000 ML 100 MEQ IV ×3 (00:59→22:44)
[2025-02-02 02:06] LABS: Hematocrit 42.2 % (37-47); Hemoglobin 14.4 g/dL (12.0-15.0); Immature Granulocytes Count 0.070 X10^3/uL (0.0-0.0); Mean Corp Hgb Conc 34.1 g/dL (32-36); Mean Corpuscular Volume 78.9 fL (81-99); Mean Platelet Vol. 10.4 fl (6.2-12.0); NRBC Flagged by Analyzer 0 % (0-5); Platelet Count 365 K/mm3 (150-450); RBC Distribution Width CV 13.5 % (11.6-14.6); RBC Distribution Width SD 38.8 fl (35.1-43.9); Red Blood Count 5.35 M/mm3 (4.2-5.4); White Blood Count 17.0 K/mm3 (4.4-11.0)
[2025-02-02 02:24] LABS: Prothrombin Time (Protime)PT. 13.7 SECONDS (11.7-14.9)
[2025-02-02 02:25] LABS: Partial Thromboplast Time 25.8 Seconds (24.1-36.2)
[2025-02-02] MEDS: Heparin Injection (Vial) 5,000 UNIT/ML VIAL 4000 UNIT IV (02:26)
[2025-02-02] MEDS: HEPARIN/D5w 25,000 UNITS 25,000 UNITS/250 ML IV.SOLN. 12.2 UNITS CONT INF (02:27)
[2025-02-02 03:03] LABS: Troponin T High Sens 2 HR 365 ng/L (<=14)
[2025-02-02 04:27] LABS: Hematocrit 42.8 % (37-47); Hemoglobin 14.6 g/dL (12.0-15.0); Immature Granulocytes Count 0.050 X10^3/uL (0.0-0.0); Mean Corp Hgb Conc 34.1 g/dL (32-36); Mean Corpuscular Volume 79.3 fL (81-99); Mean Platelet Vol. 10.3 fl (6.2-12.0); NRBC Flagged by Analyzer 0 % (0-5); Platelet Count 346 K/mm3 (150-450); RBC Distribution Width CV 13.5 % (11.6-14.6); RBC Distribution Width SD 38.5 fl (35.1-43.9); Red Blood Count 5.40 M/mm3 (4.2-5.4); White Blood Count 16.5 K/mm3 (4.4-11.0)
[2025-02-02 04:37] LABS: Anion Gap 17 (5-15); BUN 4 mg/dL (4-19); BUN/Creat Ratio 6.8 RATIO (10-20); Calcium,Total 8.6 mg/dL (7.6-11.0); Carbon Dioxide 18.6 mmol/L (21.0-32.0); Chloride 97 mmol/L (98-108); Estimated Creatinine Clearance 161.52 ml/min (50-250); Glucose 247 mg/dL (70-99); Potassium 3.1 mmol/L (3.3-5.1)
[2025-02-02 05:57] LABS: Troponin T High Sens 4 HR 609 ng/L (<=14)
[2025-02-02 07:50] LABS: Magnesium 1.9 mg/dL (1.5-2.2)
--- NOTE | 2025-02-02 07:50 | PCM.CONS.C ---
Assessment & Plan Assessment/Plan (1) Acute coronary syndrome with high troponin: PLAN: Patient developed chest symptoms last evening radiating down her left arm at approximately 2300 hrs. ECG at that time showed Q waves in the inferior leads with ST segment elevation. The ST segments had a metabolic appearance to them and the patient does have a ongoing metabolic acidosis. The patient appears to have been in DKA with intractable nausea and vomiting. She also has a history of gastric paresis. Subsequent ECG after heparin IV and medical therapy showed that the STs had decreased back toward baseline. Given the patient's tachycardia would recommend adding back her low-dose metoprolol succinate 25 mg daily. Also recommend the patient undergo invasive evaluation with left heart catheterization. The patient was evaluated last evening by an interventional list looking at the ECG. Dr. James will perform the catheterization this morning. The patient had an echocardiogram done this morning results of which are pending. The cath procedure risk/benefit and alternatives were explained to the patient in detail she voiced understanding and agrees to proceed. (2) Metabolic acidosis: PLAN: Patient's metabolic acidosis is being managed by the primary service. (3) Type 2 diabetes mellitus with gastroparesis: PLAN: The primary service is managing the patient's diabetes. PLAN: Plan 1. Left heart catheterization this morning. 2. Further recommendations pending the results of the catheterization. HPI Consult Data Date of Consult: 02/02/25 HPI Narrative Reason for Consultation: Abnormal ECG and chest pain. HPI Narrative: SERAFIN DONALDSON, is a 49 F who presents with intractable nausea and vomiting. The patient was actually admitted January 28, 2025. Last evening she developed chest pain radiating down her left arm and ECG at [address] elevation inferiorly. The patient was placed on heparin and repeat ECG showed the ST elevation had trended down. Initial troponin was 176, 2 hours 300, 4-hour was 609. The patient now reports that she has a soreness in the left side of her chest that is tender to palpation. She noticed it significantly when they were doing the echocardiogram. There is no left arm discomfort this morning. The patient does have a history of THC heavy use, she is also on Mounjaro which has been discontinued, she has a history of recurrent DKA admissions. 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 The patient's never been diagnosed with coronary artery disease. She does have a family history on her mother side. She is hypertensive. The patient also with a history of chronic pain syndrome she is on oxycodone. 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 The patient is allergic to Betadine but she is not allergic to IVP dye. [facility] Medical History Irregular heart beat Congestive heart failure (CHF) Joce-Danlos syndrome Gregg disease Anxiety Type 2 diabetes mellitus Cholecystectomy planned Home Medications ?Medication ?Instructions ?Recorded ?Last Taken ?Type metoclopramide HCl 10 mg tablet 10 mg PO 4X/DAY PRN Headache #30 01/27/25 Unknown Rx tabs bupropion HCl 150 mg 24 hr tablet, 150 mg PO DAILY 01/28/25 Unknown History extended release cyclobenzaprine 10 mg tablet 10 mg PO DAILY PRN pain 01/28/25 Unknown History hydroxyzine pamoate 50 mg capsule 50 mg PO TID PRN PRN allergies 01/28/25 Unknown History metformin 500 mg tablet 1,000 mg PO BID 01/28/25 Unknown History mirtazapine 15 mg tablet 15 mg PO QHS 01/28/25 Unknown History nitrofurantoin 1 cap PO BID 01/28/25 Unknown History monohydrate/macrocrystals 100 mg capsule oxycodone 10 mg tablet 10 mg PO TID PRN PRN pain 01/28/25 Unknown History sertraline 100 mg tablet 150 mg PO DAILY 01/28/25 Unknown History tirzepatide 10 mg/0.5 mL 10 mg subcut QWEEK 01/28/25 Unknown History subcutaneous pen injector (Mounsanketro) metoprolol succinate 25 mg 25 mg PO DAILY heart rate control 02/01/25 01/18/25 History tablet,extended release 24 hr Allergy/AdvReac Type Severity Reaction Status Date / Time amoxicillin (From Augmentin) Allergy Abd Verified 01/27/25 16:39 cramps/diarrhea cefaclor (From Ceclor) Allergy Abd Verified 01/27/25 16:39 cramps/diarrhea cefuroxime (From Ceftin) Allergy Abd Verified 01/27/25 16:39 cramps/diarrhea clarithromycin (From Biaxin) Allergy Abd Verified 01/27/25 16:39 cramps/diarrhea clavulanic acid (From Allergy Abd Verified 01/27/25 16:39 Augmentin) cramps/diarrhea Latex, Natural Rubber Allergy Swelling Verified 01/27/25 16:37 pineapple Allergy Anaphylaxis Verified 01/27/25 16:37 Sulfa (Sulfonamide Allergy Abd Verified 01/27/25 16:39 Antibiotics) cramps/diarrhea sulfamethoxazole (From Allergy Vomiting Verified 01/27/25 16:39 Bactrim) trimethoprim (From Bactrim) Allergy Vomiting Verified 01/27/25 16:39 Family History Other Joce-Danlos syndrome Surgical History H/O hernia repair Hx of tonsillectomy Social History Smoking Status: Never smoker alcohol intake: never substance use type: marijuana ROS Constitutional Constitutional: Reports as per HPI Eyes Eyes: Reports systems reviewed and no addt'l complaints, except as documented ENT HEENT: Reports systems reviewed and no addt'l complaints, except as documented Cardiovascular Cardiovascular: Reports as per HPI Respiratory/Chest Respiratory/Chest: Reports as per HPI Gastrointestinal Gastrointestinal: Reports as per HPI Genitourinary Genitourinary: Reports systems reviewed and no addt'l complaints, except as documented Musculoskeletal Musculoskeletal: Reports as per HPI Integumentary Integumentary: Reports systems reviewed and no addt'l complaints, except as documented Neurologic Neurologic: Reports systems reviewed and no addt'l complaints, except as documented Psychiatric Psychiatric: Reports systems reviewed and no addt'l complaints, except as documented Endocrine Endocrinology: Reports as per HPI Hematologic/Lymphatic Hematologic/Lymphatic: Reports systems reviewed and no addt'l complaints, except as documented Allergic/Immunologic Allergic/Immunologic: Reports as per HPI Physical Exam Const alert and oriented x3 Orientation / Consciousness: awake HEENT normocephalic Eyes EOMs intact bilaterally Neck no JVD and no carotid bruits Chest inspection of chest normal Resp normal respiratory effort and clear to auscultation bilaterally Cardio Rate: tachycardic Rhythm: regular rhythm Heart Sounds: S1 normal and S2 normal; Negative for click, gallop or murmur GI normal to inspection, nondistended, normoactive bowel sounds Extremity no pedal edema Neuro Neuro Narrative: Alert and oriented x 3 Psych mental status grossly normal Charges/Coding Visit Charges Inpatient E&M: 00793 Init Hosp L2 Objective Data Vital Signs: Vital Signs Temp Pulse Resp BP Pulse Ox O2 Del Method 97.7 F L 97 12 158/94 H 98 Room Air 02/02/25 06:00 02/02/25 07:00 02/02/25 07:00 02/02/25 07:00 02/02/25 07:00 02/02/25 07:00 Oxygen Delivery Method Room Air Weight: 223 lb 8.78 oz Body Mass Index (BMI) 31.3 Intake & Output: Intake and Output for Last 24 Hours 01/31/25 02/01/25 02/02/25 23:59 23:59 23:59 Intake Total 4163.52 / 4283.52 4902.5 / 4902.5 305 / 305 Balance 4163.52 / 4283.52 4902.5 / 4902.5 305 / 305 Lab / Micro Data Attestation: I reviewed the patient's lab results. 02/02/25 04:00 02/02/25 04:00 Labs: Laboratory Results - last 24 hr 02/01/25 08:03: POC Glucose 264 H 02/01/25 08:45: Sodium 134, Potassium 3.7, Chloride 101, Carbon Dioxide 13.6 L, Anion Gap 20 H, BUN 5, Creatinine 0.62 L, Estim Creat Clear Calc 145.89, Est GFR (MDRD) Non-Af 110, BUN/Creatinine Ratio 8.3 L, Glucose 268 H, Calcium 8.2 02/01/25 11:15: Lactic Acid 1.3 02/01/25 12:17: POC Glucose 135 H 02/01/25 16:48: POC Glucose 215 H 02/01/25 21:48: POC Glucose 274 H 02/01/25 23:40: Magnesium Cancelled, Troponin T High Sens Cancelled 02/02/25 00:16: Magnesium 1.9 02/02/25 00:16: Magnesium 1.9, Troponin T High Sens 176 H*, TSH 1.130 02/02/25 01:50: WBC 17.0 H, RBC 5.35, Hgb 14.4, Hct 42.2, MCV 78.9 L, MCH 26.9 L, MCHC 34.1, RDW Std Deviation 38.8, RDW Coeff of Katrina 13.5, Plt Count 365, MPV 10.4, Immature Gran % (Auto) 0.400, Neut % (Auto) 74.4 H, Lymph % (Auto) 17.1 L, [place] % (Auto) 7.4, Eos % (Auto) 0.2, Baso % (Auto) 0.5, Absolute Neuts (auto) 12.7 H, Absolute Lymphs (auto) 2.92, Nucleated RBC % 0, PT 13.7, INR 1.0, APTT 25.8, Troponin T Hi Sens 2 Hr 365 H* 02/02/25 04:00: WBC 16.5 H, RBC 5.40, Hgb 14.6, Hct 42.8, MCV 79.3 L, MCH 27.0, MCHC 34.1, RDW Std Deviation 38.5, RDW Coeff of Katrina 13.5, Plt Count 346, MPV 10.3, Immature Gran % (Auto) 0.300, Neut % (Auto) 76.5 H, Lymph % (Auto) 15.3 L, Coleman % (Auto) 7.3, Eos % (Auto) 0.2, Baso % (Auto) 0.4, Absolute Neuts (auto) 12.6 H, Absolute Lymphs (auto) 2.53, Nucleated RBC % 0, Sodium 133, Potassium 3.1 L, Chloride 97 L, Carbon Dioxide 18.6 L, Anion Gap 17 H, BUN 4, Creatinine 0.56 L, Estim Creat Clear Calc 161.52, Est GFR (MDRD) Non-Af 113, BUN/Creatinine Ratio 6.8 L, Glucose 247 H, Calcium 8.6, Troponin T Hi Sens 4Hr 609 H* Rhythm Strip Rhythm Strip: Sinus Tach Rate: 100 Cardiology Labs/Tests 02/01/25 08:45: Sodium 134, Potassium 3.7, Chloride 101, Carbon Dioxide 13.6 L, Anion Gap 20 H, BUN 5, Creatinine 0.62 L, Est GFR (MDRD) Non-Af 110, BUN/Creatinine Ratio 8.3 L, Glucose 268 H, Calcium 8.2 02/01/25 11:15: Lactic Acid 1.3 02/01/25 23:40: Magnesium Cancelled 02/02/25 00:16: Magnesium 1.9 02/02/25 00:16: Magnesium 1.9 02/02/25 01:50: WBC 17.0 H, RBC 5.35, Hgb 14.4, Hct 42.2, MCV 78.9 L, MCH 26.9 L, MCHC 34.1, Plt Count 365, MPV 10.4, Immature Gran % (Auto) 0.400, Neut % (Auto) 74.4 H, Lymph % (Auto) 17.1 L, [place] % (Auto) 7.4, Eos % (Auto) 0.2, Baso % (Auto) 0.5, Absolute Neuts (auto) 12.7 H, Nucleated RBC % 0, PT 13.7, INR 1.0, APTT 25.8 02/02/25 04:00: WBC 16.5 H, RBC 5.40, Hgb 14.6, Hct 42.8, MCV 79.3 L, MCH 27.0, MCHC 34.1, Plt Count 346, MPV 10.3, Immature Gran % (Auto) 0.300, Neut % (Auto) 76.5 H, Lymph % (Auto) 15.3 L, Coleman % (Auto) 7.3, Eos % (Auto) 0.2, Baso % (Auto) 0.4, Absolute Neuts (auto) 12.6 H, Nucleated RBC % 0, Sodium 133, Potassium 3.1 L, Chloride 97 L, Carbon Dioxide 18.6 L, Anion Gap 17 H, BUN 4, Creatinine 0.56 L, Est GFR (MDRD) Non-Af 113, BUN/Creatinine Ratio 6.8 L, Glucose 247 H, Calcium 8.6 Rhythm: EKG: ECHO: Stress Test: Cardiac Cath: PCI: CT Surgery: Holter monitor: EPS: PPM: CXR: Chest CT Scan: MEHRAN Risk Score for UA/STEMI Assesmment (YES = 1) Risk Stratification Applicable: Yes Age > or = 65: No > or = 3 CAD risk factors (HTN, Hypercholesterolemia, Diabetes, family hx, current smoker): Yes Known CAD (Stenosis > or = 50%): No ASA used in past 7 days: No Severe angina (> or = 2 episodes in 24 hrs): Yes EKG ST change > or = 0.5mm: Yes Positive cardiac markers: Yes Score MEHRAN Risk Score of mortality/ recurrent ischemic event over the next 14 days: 4 = 19.9% - Intermediate
[2025-02-02] MEDS: Potassium Chloride Oral Tablet 20 MEQ 40 MEQ PO (08:37)
[2025-02-02] MEDS: Metoprolol(XL)Succ 25 MG Tablet PO ×2 (08:39→20:12)
[2025-02-02 10:08] LABS: Partial Thromboplast Time 62.6 Seconds (24.1-36.2)
--- NOTE | 2025-02-02 11:30 | PCM.PROGNOTE ---
Subjective Subjective Patient seen and examined. His significant other was by bedside. She developed chest pain overnight which she described as an elephant sitting on her chest, and EKG done was concerning for STEMI. Cardiology was consulted and patient is going for cardiac cath today. She still complains of some chest pain this morning but is not as severe as it was yesterday. She denied any palpitations, shortness of breath or any other symptoms. Review of systems otherwise negative. Her troponin yesterday was 176 and peaked at 609. Objective Data Objective Data Vital Signs: Vital Signs Temp Pulse Resp BP Pulse Ox O2 Del Method 97.7 F L 90 12 124/82 H 98 Room Air 02/02/25 06:00 02/02/25 08:39 02/02/25 07:00 02/02/25 08:39 02/02/25 07:00 02/02/25 07:00 Oxygen Delivery Method Room Air Weight: 223 lb 8.78 oz Body Mass Index (BMI) 31.3 Intake & Output: Intake and Output for Last 24 Hours 01/31/25 02/01/25 02/02/25 23:59 23:59 23:59 Intake Total 4163.52 / 4283.52 4902.5 / 4902.5 305 / 305 Balance 4163.52 / 4283.52 4902.5 / 4902.5 305 / 305 Lab / Micro Data 02/02/25 04:00 02/02/25 04:00 Labs: Laboratory Results - last 24 hr 02/01/25 11:15: Lactic Acid 1.3 02/01/25 12:17: POC Glucose 135 H 02/01/25 16:48: POC Glucose 215 H 02/01/25 21:48: POC Glucose 274 H 02/01/25 23:40: Magnesium Cancelled, Troponin T High Sens Cancelled 02/02/25 00:16: Magnesium 1.9 02/02/25 00:16: Magnesium 1.9, Troponin T High Sens 176 H*, TSH 1.130 02/02/25 01:50: WBC 17.0 H, RBC 5.35, Hgb 14.4, Hct 42.2, MCV 78.9 L, MCH 26.9 L, MCHC 34.1, RDW Std Deviation 38.8, RDW Coeff of Katrina 13.5, Plt Count 365, MPV 10.4, Immature Gran % (Auto) 0.400, Neut % (Auto) 74.4 H, Lymph % (Auto) 17.1 L, [place] % (Auto) 7.4, Eos % (Auto) 0.2, Baso % (Auto) 0.5, Absolute Neuts (auto) 12.7 H, Absolute Lymphs (auto) 2.92, Nucleated RBC % 0, PT 13.7, INR 1.0, APTT 25.8, Troponin T Hi Sens 2 Hr 365 H* 02/02/25 04:00: WBC 16.5 H, RBC 5.40, Hgb 14.6, Hct 42.8, MCV 79.3 L, MCH 27.0, MCHC 34.1, RDW Std Deviation 38.5, RDW Coeff of Katrina 13.5, Plt Count 346, MPV 10.3, Immature Gran % (Auto) 0.300, Neut % (Auto) 76.5 H, Lymph % (Auto) 15.3 L, [place] % (Auto) 7.3, Eos % (Auto) 0.2, Baso % (Auto) 0.4, Absolute Neuts (auto) 12.6 H, Absolute Lymphs (auto) 2.53, Nucleated RBC % 0, Sodium 133, Potassium 3.1 L, Chloride 97 L, Carbon Dioxide 18.6 L, Anion Gap 17 H, BUN 4, Creatinine 0.56 L, Estim Creat Clear Calc 161.52, Est GFR (MDRD) Non-Af 113, BUN/Creatinine Ratio 6.8 L, Glucose 247 H, Calcium 8.6, Troponin T Hi Sens 4Hr 609 H* 02/02/25 08:36: POC Glucose 204 H 02/02/25 09:30: APTT 62.6 H Radiography Diagnostic Testing: Radiology Impression Echocardiogram 02/02/25 00:38 Interpretation Summary Normal LV size. Left ventricular systolic function is normal. The left ventricular ejection fraction is 55 %. Infero-Basal: Akinetic. Contrast injection was performed. Ordering Physician: Swetha Bach Referring Physician: Karena Thompson Performed By: Kylah Johnson, LORENZA, RVT Rhythm Strip Rhythm Strip: Sinus Tach Rate: 100 Physical Exam Const alert, oriented x3 and no apparent distress General Appearance: cooperative HEENT normocephalic, head/scalp atraumatic, hearing grossly normal bilaterally, moist oral mucous membranes and oropharynx normal Eyes EOMs intact bilaterally Neck supple Lymph Lymphatic: no lymphedema noted Resp normal respiratory effort, normal air movement, no retractions, no use of accessory muscles and clear to auscultation bilaterally Cardio regular rate, regular rhythm, S1 normal heart sound, S2 normal heart sound and no murmurs Cardio Narrative: tachycardic GI normal to inspection, nondistended, normoactive bowel sounds, soft to palpation, non-tender, non-distended and hepatosplenomegaly Extremity normal to inspection, full ROM and normal capillary refill General Extremity: no tenderness to palpation of joints or extremities Skin General Skin Exam: no breakdown and turgor normal Neuro no focal motor deficits and no sensory deficits noted Sensorium / Orientation: awake and alert Motor Exam: strength 5/5 throughout and general weakness Psych thought process normal and cooperative Appearance: appropriate Assessment & Plan Assessment/Plan (1) Type 2 diabetes mellitus with gastroparesis: (2) Acute dehydration: (3) Intractable vomiting with nausea: PLAN: Plan #Acute STEMI She developed chest pain overnight. EKG done was concerning for ST elevation MN. Initial troponin was 176 and peaked at 609. Cardiology on board and she is for cardiac cath today. Chest pain had improved today. Sublingual nitroglycerin as needed. On heparin drip as well as metoprolol #intractable nausea and vomiting this is in the setting of known gastroparesis. She is also on mounjaro though she says she doesnt want to take this anymore she also has a histoyr of chronic marijuana dependence. These can all cause intractable nausea and vomiting. on IV zofran. Phenergan added on. h= this is improving. #Anion gap metabolic acidosis was treated presumptively for DKA in the setting of anion gap metabolic acidosis, though there was no clear evidence of DKA anion gap has closed x 2 and on onsulin drip. Insulin drip dc'd and patient started on SQ lantus 15 units daily. moderate to high dose sliding scale. Accuchecks ACHS. her A1C is 10.6. Patient says she does not want to be on mounjaro anymore Anion gap today is 17 with bicarb of 18.6. Potassium is 3.1. Continue bicarb drip for now. Will switch to p.o. bicarb. #A-fib: Patient was tachycardic yesterday. She is on metoprolol 25 mg daily and this was resumed. #Hypokalemia:Potassium is 3.1 today. Will replace. #TYpe 2 diabetes mellitus Has associated history of gastroparesis. Treated for DKA as above. On Lantus 15 units daily. Insulin sliding scale. Accuchecks ACHS. #History of chronic pain: On oxycodone and Percocet. Receives medication as prescribed by Tatiana Nova per SHANNA. #DVT prophylaxis: lovenox Code status: full code Charges/Coding Visit Charges Inpatient E&M: 44827 Subs Hosp L2
[2025-02-02] MEDS: Insulin Glargine-YFGN 100 UNIT/ML Pen 15 UNIT SC (13:17)
[2025-02-02] MEDS: 0.9% Normal Saline (1000mL) 1,000 ML 150 ML IV (13:30)
--- NOTE | 2025-02-02 13:31 | CL.I_ITS ---
Patient Name: SERAFIN DONALDSON Study Date: 02/02/2025 Performing: Ollie James MD Ht: 71 inches 180.34 cm : 1975 Wt: 223.8 lbs 101.4 kg Age: 49 Gender: female BSA: 2.21 PROCEDURE(S) PERFORMED DC02-(52489)LHC/COR IC12-(71705/[id number])JAMILA W/WO PTCA, SINGLE CORONARY ARTERY CLINICAL PROFILE AND CO-MORBIDITIES Indications: ACS <= 24 hrs, NSTEMI Heart Failure: None CONCLUSIONS Multivessel CAD as described. Succesful JAMILA to mRCA. RECOMMENDATIONS Pt. should return for staged PCI of LCx and LAD DESCRIPTION OF PROCEDURE The patient arrived to the procedure lab. The risks and benefits of the procedure as well as a full description of our services here and lack of surgical backup were fully explained to the patient and/or their significant other prior to the catheterization. The Timeout was completed, verifying the correct patient and procedure. The patient's procedural site was prepped and draped in the usual fashion. Local anesthetic was given subcutaneously to right radial region with Lidocaine 2%. Using a modified Seldinger technique, arterial access was obtained via the right radial artery, a 6Fr sheath was inserted.. Left Coronary Artery selective angiography was performed in multiple views using a 5 Fr. JL3.5 catheter. Right Coronary Artery selective angiography was then performed in multiple views using a 5 Fr. JR 4 catheterThe images were reviewed and options discussed. A decision was then made to proceed with an Intervention, IVUS or other adjunct procedure. jr4 Guide catheter was inserted and engaged into the RCA. bmw Guide 3.0 x 8 Drug Eluting stent was advanced across the lesion in the right coronary, mid. Angiogram performed post stent deployment. The arterial sheath was pulled and a TR Band was applied for hemostasis CORONARY ANGIOGRAPHY DOMINANCE: Right Dominant LEFT MAIN: Mild luminal irregularities LEFT ANTERIOR DESCENDING ARTERY: MID LAD: 80% stenosis followed by a 60-70% stenosis CIRCUMFLEX ARTERY: MID CIRC: 90% diffuse stenosis in the mid LCx RIGHT CORONARY ARTERY: 30% proximal stenosis MID RCA: 99% Stenosis INTERVENTION INFORMATION LESION SITE: RCA (Mid) Lesion Complexity: High/C, chronic total occlusion: No, lesion at bifurcation: Yes, thrombus present: Yes, lesion length: 7 mm, culprit lesion: Yes, Previously treated lesion: No Pre Stenosis: 99 % Pre intervention MEHRAN flow: 2 PROCEDURE: Drug Eluting Stent, Thrombectomy Post Stenosis: 0 % Post intervention MEHRAN flow: 3 Lesion Devices: Cordis 6 Fr JR4 100cm Guide Catheter [place] .014 190cm BMW Fox Straight Terumo Priority One Aspiration Catheter Medtronic 3.0 x 08 ADELINE FRONTIER JAMILA COMPLICATIONS No Complications PROCEDURE MEDICATIONS Versed 1 mg IV Fentanyl 50 mcg IV Versed 1 mg IV Oxygen: 2 L/min via nasal cannula Heparin given IA 02/02/2025 11:23:21 Heparin 3000 unit(s) IV 02/02/2025 11:42:04 Verapamil 2.5mg, Ntg 100mcgs, 3000 units of Heparin given IA 02/02/2025 11:23:21 SUMMARY OF HEMODYNAMIC DATA Time AIR REST ECG 11:10:38 AO 87/67 (75) SA 11:29:12 Signed By Ollie James MD On 02/02/2025 13:30:45 Ollie James MD
--- NOTE | 2025-02-02 14:19 | CRPHASE1 ---
Patient Communication Patient Information Former Patient:: Phase I PHII Cardiac Rehab Discussed with Patient:: Yes Guide to Cardiac Rehab Given to Patient:: Yes Cardiac Rehab Facility Choice List Given to Patient:: Yes Communication to Cardiac Rehab Choice Program [facility] CR PHII:: Communication Given to CR Burring Wheel Operator:: Ollie James Refer Phase II Cardiac Rehab:: Yes Sessions:: 36 sessions - 3 days/wk, 12 weeks Post Discharge Guide to Cardiac Rehab Given by ICU Staff Prior to Discharge:: Yes Cardiac Rehabilitation Info Program Information Cardiac Rehabilitation Program Information: Cardiac Rehab The cardiac rehab team at [facility] consists of highly skilled exercise physiologists, nurses, respiratory therapists and physicians working together with you. Our purpose is to help you have a full recovery and achieve the goals you set for yourself. Over the years many of our patients have returned to activities they assumed they would never do again! We can help restore your confidence and motivation to make lifestyle changes that can have a significant impact on your health and quality of life! We can help answer questions and concerns you may have about exercise, lifestyle, medications, diet, stress and anxiety which are common following a hospitalization. WE monitor ECG and vital signs during exercise and discuss your progress with you and report to your physician(s). Cardiac Rehab is proven to help reduce readmissions, improve functional capacity and lower recurrence of problems with your heart. Our Cardiac Rehab program is Certified by the [place] [employer] Pulmonary [employer] (AACVPR) and Accredited by the [place] [employer] through our [facility]. You can contact us at . We invite you to call us with your questions or to get started in our program. If you have other questions or concerns be sure to ask your physician/provider during your follow-up visit. WE look forward to seeing you!
--- NOTE | 2025-02-02 14:20 | CRPH1.INSTRU ---
General Education Discussed with Patient CAD and cardiac anatomy and function:: Patient communicates acknowledgment Explanation of diagnoses and procedures:: Patient communicates acknowledgment Sign/Symptoms of AK:: Patient communicates acknowledgment Antiplatelet therapy: Patient communicates acknowledgment Proper use of NTG-SL: Patient communicates acknowledgment Emergency procedures and activation of EMS: Patient communicates acknowledgment Compliance of all prescribed medications: Patient communicates acknowledgment Smoking Risk Factors Patient Nicotine/Smoking Risk Factors Are:: Non-smoker Response Code Nicotine/Smoking Response Code:: Patient communicates acknowledgment Dyslipidemia Recommendations Recommendations Include:: Lipid profile not available Response Code Dyslipidemia Response Code:: Patient communicates acknowledgment Overweight/Obesity Risk Factors Patient Overweight/Obesity Risk Factors Are:: Obesity - > or = 30 Recommendations Recommendations Include:: Weight loss of 5-10% and Exercise 5-7 times/week Response Code Overweight/Obesity:: Patient communicates acknowledgment Hypertension Risk Factors Patient Hypertension Risk Factors Are:: No documented hx of HTN Response Code Hypertension:: Patient communicates acknowledgment Heart Disease Response Code Heart Disease Response Code:: Patient communicates acknowledgment Diabetes Risk Factors Patient Diabetes Risk Factors Are:: Elevated blood sugars Recommendations Recommendations Include:: Maintain HgbA1c of 6% or less Response Code Diabetes:: Patient communicates acknowledgment Metabolic Syndrome Recommendations Recommendations Include:: Does not meet criteria Response Code Metabolic Syndrome Response Code:: Patient communicates acknowledgment Sedentary Recommendations Recommendations Include:: Benefits of regular exercise, Discussed home walking program and Monitored Outpatient Cardiac Rehab Response Code Sedentary Response Code:: Patient communicates acknowledgment Stress Recommendations Recommendations Include:: Identification of stressors, and assessment of coping skills and Stress management techniques Response Code Stress Response Code:: Patient communicates acknowledgment
[2025-02-02] MEDS: TICAGRELOR 90 MG TABLET PO (20:12)
[2025-02-02 21:30] LABS: Anion Gap 14 (5-15); BUN 3 mg/dL (4-19); BUN/Creat Ratio 6.3 RATIO (10-20); Calcium,Total 8.5 mg/dL (7.6-11.0); Carbon Dioxide 24.0 mmol/L (21.0-32.0); Chloride 98 mmol/L (98-108); Estimated Creatinine Clearance 209.75 ml/min (50-250); Glucose 217 mg/dL (70-99); Magnesium 1.8 mg/dL (1.5-2.2); Potassium 3.0 mmol/L (3.3-5.1)
[2025-02-02] MEDS: Potassium Chloride 10mEq/100mL 10 MEQ/100 ML IV.SOLN. 100 MEQ IV BOLUS (22:44)
[2025-02-02] MEDS: Sodium Phosphate/Na Biphos 15 MMOL in 0.9% Normal Saline (250mL Bag) 250 ML 125 MMOL IV (22:44)
[2025-02-02] MEDS: 0.9% Saline Lock 10 ML Syringe IV (23:06)
[2025-02-03] VITALS (25 sets, daily range): BP systolic 99–149; BP diastolic 63–101; PULSE 89–115; RESP 11–20; TEMP 36.4–36.7; O2SAT 96–100; BMI 31.3
[2025-02-03] MEDS: Potassium Chloride 10mEq/100mL 10 MEQ/100 ML IV.SOLN. 100 MEQ IV BOLUS ×9 (00:14→11:19)
[2025-02-03 02:57] LABS: Hematocrit 38.3 % (37-47); Hemoglobin 13.2 g/dL (12.0-15.0); Immature Granulocytes Count 0.040 X10^3/uL (0.0-0.0); Mean Corp Hgb Conc 34.5 g/dL (32-36); Mean Corpuscular Volume 78.8 fL (81-99); Mean Platelet Vol. 10.3 fl (6.2-12.0); NRBC Flagged by Analyzer 0 % (0-5); Platelet Count 284 K/mm3 (150-450); RBC Distribution Width CV 13.4 % (11.6-14.6); RBC Distribution Width SD 38.1 fl (35.1-43.9); Red Blood Count 4.86 M/mm3 (4.2-5.4); White Blood Count 11.3 K/mm3 (4.4-11.0)
[2025-02-03 03:22] LABS: AST(SGOT) 70 U/L (<=31); Alanine Aminotransfer ALT/SGPT 12 U/L (<=34); Albumin, Serum 3.5 g/dL (3.5-5.0); Alkaline Phosphatase 64 U/L (35-104); Anion Gap 11 (5-15); BUN 2 mg/dL (4-19); Calcium,Total 8.5 mg/dL (7.6-11.0); Carbon Dioxide 25.5 mmol/L (21.0-32.0); Chloride 98 mmol/L (98-108); Estimated Creatinine Clearance 214.74 ml/min (50-250); Globulin 2.2 g/dL (2.2-4.2); Glucose 173 mg/dL (70-99); Potassium 2.8 mmol/L (3.3-5.1)
[2025-02-03 03:36] LABS: BUN/Creat Ratio 5.4 RATIO (10-20)
[2025-02-03 03:39] LABS: Magnesium 1.7 mg/dL (1.5-2.2)
[2025-02-03] MEDS: Insulin Glargine-YFGN 100 UNIT/ML Pen 15 UNIT SC (08:03)
[2025-02-03] MEDS: Aspirin E.C. 81 MG Tablet PO (08:05)
--- NOTE | 2025-02-03 08:10 | PCM.PN.CARD ---
Subjective Subjective Patient reports that she is feeling better this morning. Her nausea is much improved. The patient underwent successful stenting of the mid right coronary artery which appeared to be a culprit lesion with a filling defect consistent with thrombus with MEHRAN grade III flow at the beginning of the procedure. The patient did have multiple runs of nonsustained ventricular tachycardia last evening. Original potassium was 3.0 after she received 40 mill equivalents it was down to 2.8. She received an additional 80 mill equivalents in divided doses IV with resolution of the VT. Objective Data Vital Signs: Vital Signs Temp Pulse Resp BP Pulse Ox O2 Del Method 97.6 F L 90 17 121/71 H 96 Room Air 02/03/25 04:00 02/03/25 07:00 02/03/25 07:00 02/03/25 07:00 02/03/25 07:00 02/03/25 07:00 Oxygen Delivery Method Room Air Weight: 223 lb 12.307 oz Body Mass Index (BMI) 31.3 Intake & Output: Intake and Output for Last 24 Hours 02/01/25 02/02/25 02/03/25 23:59 23:59 23:59 Intake Total 4962.5 / 4962.5 4185.30 / 4185.30 651.67 / 651.67 Output Total 1000 / 1000 0 / 0 Balance 3962.5 / 3962.5 4185.30 / 4185.30 651.67 / 651.67 Lab / Micro Data Attestation: I reviewed the patient's lab results. 02/03/25 02:50 02/03/25 02:50 Labs: Laboratory Results - last 24 hr 02/02/25 08:36: POC Glucose 204 H 02/02/25 09:30: APTT 62.6 H 02/02/25 13:14: POC Glucose 238 H 02/02/25 16:09: POC Glucose 253 H 02/02/25 20:25: Sodium 135, Potassium 3.0 L, Chloride 98, Carbon Dioxide 24.0, Anion Gap 14, BUN 3 L, Creatinine 0.43 L, Estim Creat Clear Calc 209.75, Est GFR (MDRD) Non-Af 120, BUN/Creatinine Ratio 6.3 L, Glucose 217 H, Calcium 8.5, Phosphorus 1.6 L, Magnesium 1.8 02/02/25 22:22: POC Glucose 260 H 02/03/25 02:50: WBC 11.3 H, RBC 4.86, Hgb 13.2, Hct 38.3, MCV 78.8 L, MCH 27.2, MCHC 34.5, RDW Std Deviation 38.1, RDW Coeff of Katrina 13.4, Plt Count 284, MPV 10.3, Immature Gran % (Auto) 0.400, Neut % (Auto) 70.8 H, Lymph % (Auto) 19.1, [place] % (Auto) 7.9, Eos % (Auto) 1.2, Baso % (Auto) 0.6, Absolute Neuts (auto) 8.0 H, Absolute Lymphs (auto) 2.16, Nucleated RBC % 0, Sodium 135, Potassium 2.8 L, Chloride 98, Carbon Dioxide 25.5, Anion Gap 11, BUN 2 L, Creatinine 0.42 L, Estim Creat Clear Calc 214.74, Est GFR (MDRD) Non-Af 121, BUN/Creatinine Ratio 5.4 L, Glucose 173 H, Calcium 8.5, Phosphorus 3.2, Magnesium 1.7, Total Bilirubin 1.25, AST 70 H, ALT 12, Alkaline Phosphatase 64, Total Protein 5.7 L, Albumin 3.5, Globulin 2.2, Albumin/Globulin Ratio 1.6 Rhythm Strip Rhythm Strip: Sinus Rhythm Rate: 94 Cardiology Labs/Tests 02/02/25 09:30: APTT 62.6 H 02/02/25 20:25: Sodium 135, Potassium 3.0 L, Chloride 98, Carbon Dioxide 24.0, Anion Gap 14, BUN 3 L, Creatinine 0.43 L, Est GFR (MDRD) Non-Af 120, BUN/Creatinine Ratio 6.3 L, Glucose 217 H, Calcium 8.5, Phosphorus 1.6 L, Magnesium 1.8 02/03/25 02:50: WBC 11.3 H, RBC 4.86, Hgb 13.2, Hct 38.3, MCV 78.8 L, MCH 27.2, MCHC 34.5, Plt Count 284, MPV 10.3, Immature Gran % (Auto) 0.400, Neut % (Auto) 70.8 H, Lymph % (Auto) 19.1, [place] % (Auto) 7.9, Eos % (Auto) 1.2, Baso % (Auto) 0.6, Absolute Neuts (auto) 8.0 H, Nucleated RBC % 0, Sodium 135, Potassium 2.8 L, Chloride 98, Carbon Dioxide 25.5, Anion Gap 11, BUN 2 L, Creatinine 0.42 L, Est GFR (MDRD) Non-Af 121, BUN/Creatinine Ratio 5.4 L, Glucose 173 H, Calcium 8.5, Phosphorus 3.2, Magnesium 1.7, Total Bilirubin 1.25 Rhythm: EKG: ECHO: Stress Test: Cardiac Cath: PCI: CT Surgery: Holter monitor: EPS: PPM: CXR: Chest CT Scan: Radiography Diagnostic Testing: Radiology Impression Echocardiogram 02/02/25 00:38 Interpretation Summary Normal LV size. Left ventricular systolic function is normal. The left ventricular ejection fraction is 55 %. Infero-Basal: Akinetic. Contrast injection was performed. Ordering Physician: Swetha Bach Referring Physician: Karena Thompson Performed By: Kylah Johnson RDCS, RVT Physical Exam Const alert and oriented x3 HEENT normocephalic Eyes EOMs intact bilaterally Neck no JVD Chest inspection of chest normal Resp normal respiratory effort and clear to auscultation bilaterally Cardio Rate: regular rate Rhythm: regular rhythm Heart Sounds: S1 normal and S2 normal; Negative for click, gallop or murmur Peripheral Pulses: radial pulses present right 2+ GI soft to palpation Extremity no pedal edema Extremity Narrative: Right hand with normal perfusion and normal sensation. Neuro Neuro Narrative: Alert and oriented x 3 Psych mental status grossly normal Assessment & Plan Assessment/Plan (1) Acute coronary syndrome with high troponin: PLAN: Patient denies any recurrence of the chest pain. She does report that her nausea is improving. LV function shows an EF of 55% with inferior base akinesis consistent with her culprit lesion in the mid right coronary artery. The patient does have significant disease in the mid circumflex which will be intervened upon tomorrow tentatively. She also has disease in the LAD system that will be intervened upon at some point in time in the future to be determined depending on the outcome of the intervention on the circumflex. (2) Hypokalemia: PLAN: Patient had significant hypokalemia her potassium was 3.0 earlier last evening she received IV replacement and it dropped to 2.8. Patient had significant runs of nonsustained ventricular tachycardia which she actually felt. Once this was replaced with a total of 80 mill equivalents of IV potassium earlier this morning her arrhythmia has resolved. Her hypokalemia is multifactorial as related to her GI loss, her insulin utilization for her hyperglycemia and DKA treatment, and potentially some type of renal wasting issue. Would recommend that we add a small dose of spironolactone to her medical regiment to see if this will help with some of her potassium metabolism. Would also continue with IV replacement until she is taking p.o. and her nausea has resolved to switch her to p.o. replacement. Will defer further potassium management to the primary service. I did asked that if her potassium this morning is less than 3.5 that she received another 80 mill equivalents of IV potassium in divided doses. (3) Ventricular tachycardia: PLAN: Patient's ventricular tachycardia with short runs of nonsustained VT. These have now resolved with replacement of getting 120 mL equivalents of potassium over the last 12 hours. Please see #2 above for hypokalemia for further management. (4) ASCVD (arteriosclerotic cardiovascular disease): PLAN: Patient has three-vessel coronary artery disease. Her culprit lesion was her mid right coronary artery which was intervened upon yesterday. Tentatively she will be scheduled for intervention in the circumflex tomorrow with Dr. James. Pending the outcome of that intervention timing of intervening on the left anterior descending system will be determined. PLAN: Plan 1. Continue replace potassium to achieve potassium above 3.5. 2. Will add low-dose spironolactone 12.5 mg daily. This can be discontinued once her potassium metabolism is stabilized. 3. Continue with beta-rizwana therapy. 4. Patient to continue with added sodium in the diet due to her POTS. 5. Plan for PCI of the circumflex tomorrow with Dr. James. 6. Please keep the patient n.p.o. after midnight.
[2025-02-03] MEDS: Sodium Bicarbonate 50 MEQ in Dextrose 5%-Water (1000mL Bag) 1,000 ML 100 MEQ IV (09:02)
[2025-02-03] MEDS: TICAGRELOR 90 MG TABLET PO ×2 (09:22→21:09)
[2025-02-03] MEDS: Metoprolol(XL)Succ 25 MG Tablet PO ×2 (09:24→21:09)
--- NOTE | 2025-02-03 10:00 | EKG12_ITS ---
Test Reason : ARRHYTHMIA Blood Pressure : */* mmHG Vent. Rate : 137 BPM Atrial Rate : * BPM P-R Int : * ms QRS Dur : 88 ms QT Int : 378 ms P-R-T Axes : * -3 93 degrees QTcB Int : 570 ms Critical Test Result: Long QTc , STEMI AGE AND GENDER SPECIFIC ECG ANALYSIS Atrial fibrillation with rapid ventricular response with premature ventricular or aberrantly conducted complexes Inferior infarct , possibly acute ACUTE FL / STEMI Consider right ventricular involvement in acute inferior infarct Abnormal ECG When compared with ECG of 01-Feb-2025 22:57, MANUAL COMPARISON REQUIRED DATA IS UNCONFIRMED Reconfirmed by LEXI BRANTLEY, ISRAEL ([id number]), purchase request editor CRICKET KATHLEEN ([id number]) on 02/03/2025 7:20:44 AM Referred By: Confirmed By: ISRAEL ELLIOTT MD
--- NOTE | 2025-02-03 11:10 | PN_ITS ---
Subjective Subjective Patient seen and examined. She says she felt much better today. She did have cardiac cath with insertion of stents in the RCA. She has not really thrown up this morning. She is still tachycardic with a heart rate of 115 this morning. She has otherwise remained hemodynamically stable. Review of systems otherwise negative. Objective Data Objective Data Vital Signs: Vital Signs Temp Pulse Resp BP Pulse Ox O2 Del Method 97.6 F L 115 H 14 114/81 H 98 Room Air 02/03/25 04:00 02/03/25 09:24 02/03/25 09:00 02/03/25 09:00 02/03/25 09:00 02/03/25 09:00 Oxygen Delivery Method Room Air Weight: 223 lb 12.307 oz Body Mass Index (BMI) 31.3 Intake & Output: Intake and Output for Last 24 Hours 02/01/25 02/02/25 02/03/25 23:59 23:59 23:59 Intake Total 4962.5 / 4962.5 4185.30 / 4185.30 2581.67 / 2581.67 Output Total 1000 / 1000 0 / 0 Balance 3962.5 / 3962.5 4185.30 / 4185.30 2581.67 / 2581.67 Lab / Micro Data 02/03/25 02:50 02/03/25 02:50 Labs: Laboratory Results - last 24 hr 02/02/25 13:14: POC Glucose 238 H 02/02/25 16:09: POC Glucose 253 H 02/02/25 20:25: Sodium 135, Potassium 3.0 L, Chloride 98, Carbon Dioxide 24.0, Anion Gap 14, BUN 3 L, Creatinine 0.43 L, Estim Creat Clear Calc 209.75, Est GFR (MDRD) Non-Af 120, BUN/Creatinine Ratio 6.3 L, Glucose 217 H, Calcium 8.5, P hosphorus 1.6 L, Magnesium 1.8 02/02/25 22:22: POC Glucose 260 H 02/03/25 02:50: WBC 11.3 H, RBC 4.86, Hgb 13.2, Hct 38.3, MCV 78.8 L, MCH 27.2, MCHC 34.5, RDW Std Deviation 38.1, RDW Coeff of Katrina 13.4, Plt Count 284, MPV 10.3, Immature Gran % (Auto) 0.400, Neut % (Auto) 70.8 H, Lymph % (Auto) 19.1, Brule % (Auto) 7.9, Eos % (Auto) 1.2, Baso % (Auto) 0.6, Absolute Neuts (auto) 8.0 H, Absolute Lymphs (auto) 2.16, Nucleated RBC % 0, Sodium 135, Potassium 2.8 L, Chloride 98, Carbon Dioxide 25.5, Anion Gap 11, BUN 2 L, Creatinine 0.42 L, Estim Creat Clear Calc 214.74, Est GFR (MDRD) Non-Af 121, BUN/Creatinine Ratio 5.4 L, Glucose 173 H, Calcium 8.5, Phosphorus 3.2, Magnesium 1.7, Total Bilirubin 1.25, AST 70 H, ALT 12, Alkaline Phosphatase 64, Total Protein 5.7 L, Albumin 3.5, Globulin 2.2, Albumin/Globulin Ratio 1.6 02/03/25 07:59: POC Glucose 224 H Rhythm Strip Rhythm Strip: Sinus Rhythm Rate: 94 Physical Exam Const alert, oriented x3 and no apparent distress General Appearance: cooperative HEENT normocephalic, head/scalp atraumatic, hearing grossly normal bilaterally, moist oral mucous membranes and oropharynx normal Eyes EOMs intact bilaterally Neck supple Lymph Lymphatic: no lymphedema noted Resp Resp Narrative: mildly diminished breath sounds bibasally. NO wheezes or crackles. Cardio regular rhythm, S1 normal heart sound, S2 normal heart sound and no murmurs Cardio Narrative: tachycardic GI normal to inspection, nondistended, normoactive bowel sounds, soft to palpation, non-tender, non-distended and hepatosplenomegaly Extremity normal to inspection, full ROM and normal capillary refill General Extremity: no tenderness to palpation of joints or extremities Skin General Skin Exam: no breakdown and turgor normal Neuro no focal motor deficits and no sensory deficits noted Sensorium / Orientation: awake and alert Motor Exam: strength 5/5 throughout and general weakness Psych thought process normal and cooperative Appearance: appropriate Assessment & Plan Assessment/Plan (1) Type 2 diabetes mellitus with gastroparesis: (2) Acute dehydration: (3) Intractable vomiting with nausea: PLAN: Plan #Acute STEMI * She developed chest pain one night ago. EKG done was concerning for ST elevation MA. Initial troponin was 176 and peaked at 609. * Cardiology on board and she is for cardiac cath today. Chest pain had improved today. Sublingual nitroglycerin as needed. * On heparin drip as well as metoprolol * she had cardiac cath today which showed multivessel CAD with successful JAMILA to mid RCA * She is to have staged PCI of left circumflex and LAD tomorrow. * Cardiology on board. 2D echo showed EF of 55% and akinetic inferior basal wall as well as normal left ventricular systolic function. * On aspirin and Brilinta as well as high intensity statin. #intractable nausea and vomiting * this is in the setting of known gastroparesis. She is also on mounjaro though she says she doesnt want to take this anymore * she also has a history of chronic marijuana dependence. These can all cause intractable nausea and vomiting. * on IV zofran. Phenergan added on. * this is improving. * #Anion gap metabolic acidosis * was treated presumptively for DKA in the setting of anion gap metabolic acidosis, though there was no clear evidence of DKA * anion gap has closed x 2 and on onsulin drip. Insulin drip dc'd and patient started on SQ lantus 15 units daily. * moderate to high dose sliding scale. Accuchecks ACHS. * her A1C is 10.6. Patient says she does not want to be on mounjaro anymore * Bicarb today is up to 25.5 and anion gap is down to 11. * Will DC bicarb drip. * #A-fib: Patient still mildly tachycardic. She is on metoprolol 25 mg daily #Hypokalemia:Potassium is 2.8 today. Will replace aggressively. magnesium is 1.7. Will also replace #TYpe 2 diabetes mellitus * Has associated history of gastroparesis. Treated for DKA as above. On Lantus 15 units daily. * Insulin sliding scale. Accuchecks ACHS. #History of chronic pain: * On oxycodone and Percocet. * Receives medication as prescribed by Tatiana Nova per OAALIYA. * #DVT prophylaxis: lovenox Code status: full code Charges/Coding Visit Charges Inpatient E&M: 70890 Subs Hosp L2
[2025-02-03] MEDS: Magnesium Sulfate 2 GM in Dextrose 5%-Water (100mL Bag) 100 ML IV (11:51)
[2025-02-03 15:48] LABS: Potassium 3.8 mmol/L (3.3-5.1)
[2025-02-03] MEDS: 0.9% Saline Lock 10 ML Syringe IV (17:00)
[2025-02-03] MEDS: Potassium Chloride Oral Tablet 20 MEQ 40 MEQ PO (17:01)
[2025-02-04] VITALS (28 sets, daily range): BP systolic 92–181; BP diastolic 65–102; PULSE 79–110; RESP 8–26; TEMP 36.3–37.1; O2SAT 95–99; BMI 30.9
[2025-02-04 05:47] LABS: Hematocrit 38.7 % (37-47); Hemoglobin 13.0 g/dL (12.0-15.0); Immature Granulocytes Count 0.040 X10^3/uL (0.0-0.0); Mean Corp Hgb Conc 33.6 g/dL (32-36); Mean Corpuscular Volume 80.8 fL (81-99); Mean Platelet Vol. 10.9 fl (6.2-12.0); NRBC Flagged by Analyzer 0 % (0-5); Platelet Count 262 K/mm3 (150-450); RBC Distribution Width CV 13.4 % (11.6-14.6); RBC Distribution Width SD 39.0 fl (35.1-43.9); Red Blood Count 4.79 M/mm3 (4.2-5.4); White Blood Count 12.0 K/mm3 (4.4-11.0)
[2025-02-04 06:11] LABS: Anion Gap 10 (5-15); BUN 4 mg/dL (4-19); BUN/Creat Ratio 7.4 RATIO (10-20); Calcium,Total 8.7 mg/dL (7.6-11.0); Carbon Dioxide 26.3 mmol/L (21.0-32.0); Chloride 100 mmol/L (98-108); Estimated Creatinine Clearance 163.11 ml/min (50-250); Glucose 181 mg/dL (70-99); Potassium 3.6 mmol/L (3.3-5.1)
[2025-02-04] MEDS: 0.9% Saline Lock 10 ML Syringe IV ×2 (07:36→13:50)
[2025-02-04] MEDS: hydrOXYzine PAM 25 MG Capsule 50 MG PO (08:36)
[2025-02-04] MEDS: Aspirin E.C. 81 MG Tablet PO (09:43)
[2025-02-04] MEDS: Metoprolol(XL)Succ 25 MG Tablet PO (09:44)
[2025-02-04] MEDS: TICAGRELOR 90 MG TABLET PO ×2 (09:44→21:25)
--- NOTE | 2025-02-04 10:00 | EKG12_ITS ---
Test Reason : AM EKG Blood Pressure : */* mmHG Vent. Rate : 83 BPM Atrial Rate : 83 BPM P-R Int : 158 ms QRS Dur : 78 ms QT Int : 434 ms P-R-T Axes : 50 -49 -34 degrees QTcB Int : 509 ms Normal sinus rhythm Left axis deviation Inferior infarct , age undetermined Prolonged QT Abnormal ECG When compared with ECG of 03-Feb-2025 06:20, MANUAL COMPARISON REQUIRED DATA IS UNCONFIRMED Confirmed by DEBRA BRANTLEY, ONEAL ([id number]), manager editorial MIGUEL ANGEL RAMIREZ ([id number]) on 02/07/2025 6:34:39 AM Referred By: DIOGENES Confirmed By: ONEAL RICHARDSON MD
--- NOTE | 2025-02-04 10:37 | NURSING ---
Pt to heart cath via [facility]
--- NOTE | 2025-02-04 12:58 | CRPHASE1_ITS ---
Patient Communication Patient Information Former Patient:: Phase I (Phase 1 completed previously during same admission.) PHII Cardiac Rehab Discussed with Patient:: No (Phase 1 completed previously during same admission.) Guide to Cardiac Rehab Given to Patient:: No (Phase 1 completed previously during same admission.) Communication to Cardiac Rehab Choice Program [facility] PHII:: Communication Given to CR Environmental Field Team Member:: Carmencita James Phase II Cardiac Rehab:: Yes Sessions:: 36 sessions - 3 days/wk, 12 weeks Cardiac Rehabilitation Info Program Information Cardiac Rehabilitation Program Information: Cardiac Rehab The cardiac rehab team at [facility] consists of highly skilled exercise physiologists, nurses, respiratory therapists and physicians working together with you. Our purpose is to help you have a full recovery and achieve the goals you set for yourself. Over the years many of our patients have returned to activities they assumed they would never do again! We can help restore your confidence and motivation to make lifestyle changes that can have a significant impact on your health and quality of life! We can help answer questions and concerns you may have about exercise, lifestyle, medications, diet, stress and anxiety which are common following a hospitalization. WE monitor ECG and vital signs during exercise and discuss your progress with you and report to your physician(s). Cardiac Rehab is proven to help reduce readmissions, improve functional capacity and lower recurrence of problems with your heart. Our Cardiac Rehab program is Certified by the [place] [employer] (AACVPR) and Accredited by the [place] [employer] through our [facility]. You can contact us at . We invite you to call us with your questions or to get started in our program. If you have other questions or concerns be sure to ask your physician/provider during your follow-up visit. WE look forward to seeing you!
--- NOTE | 2025-02-04 12:59 | CRPH1.INSTRU ---
General Education Discussed with Patient CAD and cardiac anatomy and function:: Not instructed (Phase 1 completed previously during same admission.) Explanation of diagnoses and procedures:: Not instructed (Phase 1 completed previously during same admission.) Sign/Symptoms of WA:: Not instructed (Phase 1 completed previously during same admission.) Antiplatelet therapy: Not instructed (Phase 1 completed previously during same admission.) Proper use of NTG-SL: Not instructed (Phase 1 completed previously during same admission.) Emergency procedures and activation of EMS: Not instructed (Phase 1 completed previously during same admission.) Compliance of all prescribed medications: Not instructed (Phase 1 completed previously during same admission.)
[2025-02-04] MEDS: 0.9% Normal Saline (1000mL) 1,000 ML 150 ML IV (13:12)
[2025-02-04] MEDS: Insulin Glargine-YFGN 100 UNIT/ML Pen 15 UNIT SC (13:14)
--- NOTE | 2025-02-04 14:21 | PN_ITS ---
Subjective Subjective Patient seen and examined. Her significant other as well as her father and sister were by her bedside. She had no active complaints. She did admit to some anxiety about the upcoming cath. Review of systems otherwise negative. She has remained hemodynamically stable. Objective Data Objective Data Vital Signs: Vital Signs Temp Pulse Resp BP Pulse Ox O2 Del Method 97.6 F L 99 15 126/83 H 99 Room Air 02/04/25 14:00 02/04/25 14:00 02/04/25 14:00 02/04/25 14:00 02/04/25 14:00 02/04/25 14:00 Oxygen Delivery Method Room Air Weight: 221 lb 1.978 oz Body Mass Index (BMI) 30.9 Intake & Output: Intake and Output for Last 24 Hours 02/02/25 02/03/25 02/04/25 23:59 23:59 23:59 Intake Total 4185.30 / 4185.30 5487.34 / 5487.34 Output Total 0 / 0 Balance 4185.30 / 4185.30 5487.34 / 5487.34 Lab / Micro Data 02/04/25 05:35 02/04/25 05:35 Labs: Laboratory Results - last 24 hr 02/03/25 15:28: Potassium 3.8 02/03/25 16:56: POC Glucose 202 H 02/03/25 21:02: POC Glucose 276 H 02/04/25 05:35: WBC 12.0 H, RBC 4.79, Hgb 13.0, Hct 38.7, MCV 80.8 L, MCH 27.1, MCHC 33.6, RDW Std Deviation 39.0, RDW Coeff of Katrina 13.4, Plt Count 262, MPV 10.9, Immature Gran % (Auto) 0.300, Neut % (Auto) 57.5, Lymph % (Auto) 30.7, Antelope % (Auto) 8.5, Eos % (Auto) 2.2, Baso % (Auto) 0.8, Absolute Neuts (auto) 6.9, Absolute Lymphs (auto) 3.68, Nucleated RBC % 0, Sodium 137, Potassium 3.6, Chloride 100, Carbon Dioxide 26.3, Anion Gap 10, BUN 4, Creatinine 0.55 L, Estim Creat Clear Calc 163.11, Est GFR (MDRD) Non-Af 113, BUN/Creatinine Ratio 7.4 L, Glucose 181 H, Calcium 8.7 Rhythm Strip Rhythm Strip: Sinus Rhythm Rate: 94 Physical Exam Const alert, oriented x3 and no apparent distress General Appearance: cooperative HEENT normocephalic, head/scalp atraumatic, hearing grossly normal bilaterally, moist oral mucous membranes and oropharynx normal Eyes EOMs intact bilaterally Neck supple Lymph Lymphatic: no lymphedema noted Resp normal respiratory effort, normal air movement, no retractions, no use of accessory muscles and clear to auscultation bilaterally Cardio regular rate, regular rhythm, S1 normal heart sound, S2 normal heart sound and no murmurs GI normal to inspection, nondistended, normoactive bowel sounds, soft to palpation, non-tender, non-distended and hepatosplenomegaly Extremity normal to inspection, full ROM and normal capillary refill General Extremity: no tenderness to palpation of joints or extremities Skin General Skin Exam: no breakdown and turgor normal Neuro no focal motor deficits and no sensory deficits noted Sensorium / Orientation: awake and alert Motor Exam: strength 5/5 throughout and general weakness Psych thought process normal and cooperative Appearance: appropriate Assessment & Plan Assessment/Plan (1) Type 2 diabetes mellitus with gastroparesis: (2) Acute dehydration: (3) Intractable vomiting with nausea: PLAN: Plan #Acute STEMI * She developed chest pain one night ago. EKG done was concerning for ST elevation [place]. Initial troponin was 176 and peaked at 609. * Cardiology on board and she is for cardiac cath today. Chest pain had improved today. Sublingual nitroglycerin as needed. * On heparin drip as well as metoprolol * she had cardiac cath which showed multivessel CAD with successful JAMILA to mid RCA * She is to have staged PCI of left circumflex and LAD today. * Cardiology on board. 2D echo showed EF of 55% and akinetic inferior basal wall as well as normal left ventricular systolic function. * On aspirin and Brilinta as well as high intensity statin. #intractable nausea and vomiting * this is in the setting of known gastroparesis. She is also on mounjaro though she says she doesnt want to take this anymore * she also has a history of chronic marijuana dependence. These can all cause intractable nausea and vomiting. * on IV zofran. Phenergan added on. * largely resolved * #Anion gap metabolic acidosis * was treated presumptively for DKA in the setting of anion gap metabolic acidosis, though there was no clear evidence of DKA * anion gap has closed x 2 and on onsulin drip. Insulin drip dc'd and patient started on SQ lantus 15 units daily. * moderate to high dose sliding scale. Accuchecks ACHS. * Has now resolved. Bicarb is 26.3 and anion gap is 10. * #A-fib: Patient still mildly tachycardic. She is on metoprolol 25 mg daily #Hypokalemia: Resolved. Potassium is 3.6. #TYpe 2 diabetes mellitus * Has associated history of gastroparesis. Treated for DKA as above. On Lantus 15 units daily. * Insulin sliding scale. Accuchecks ACHS. #History of chronic pain: * On oxycodone and Percocet. * Receives medication as prescribed by Tatiana Nova per SHANNA. * #DVT prophylaxis: lovenox Code status: full code Charges/Coding Visit Charges Inpatient E&M: 24556 Subs Hosp L2
[2025-02-05] VITALS (11 sets, daily range): BP systolic 89–159; BP diastolic 64–87; PULSE 82–124; RESP 13–22; TEMP 36.8; O2SAT 93–97; BMI 31.1
--- NOTE | 2025-02-05 05:00 | EKG12_ITS ---
Test Reason : AM EKG Blood Pressure : */* mmHG Vent. Rate : 90 BPM Atrial Rate : 90 BPM P-R Int : 158 ms QRS Dur : 76 ms QT Int : 414 ms P-R-T Axes : 52 -43 -15 degrees QTcB Int : 506 ms Normal sinus rhythm Left axis deviation Inferior infarct , age undetermined Prolonged QT Abnormal ECG When compared with ECG of 04-Feb-2025 05:29, MANUAL COMPARISON REQUIRED DATA IS UNCONFIRMED Confirmed by LEXI BRANTLEY, ISRAEL ([id number]), deputy editor in chief CRICKET KATHLEEN ([id number]) on 02/07/2025 8:51:13 AM Referred By: DIOGENES Confirmed By: ISRAEL ELLIOTT MD
[2025-02-05 07:47] LABS: Hematocrit 39.2 % (37-47); Hemoglobin 13.3 g/dL (12.0-15.0); Immature Granulocytes Count 0.060 X10^3/uL (0.0-0.0); Mean Corp Hgb Conc 33.9 g/dL (32-36); Mean Corpuscular Volume 81.2 fL (81-99); Mean Platelet Vol. 11.2 fl (6.2-12.0); NRBC Flagged by Analyzer 0 % (0-5); Platelet Count 285 K/mm3 (150-450); RBC Distribution Width CV 13.3 % (11.6-14.6); RBC Distribution Width SD 39.0 fl (35.1-43.9); Red Blood Count 4.83 M/mm3 (4.2-5.4); White Blood Count 13.5 K/mm3 (4.4-11.0)
[2025-02-05] MEDS: Aspirin E.C. 81 MG Tablet PO (08:12)
[2025-02-05] MEDS: Potassium Chloride Oral Tablet 20 MEQ 40 MEQ PO (08:12)
[2025-02-05] MEDS: buPROPion (XL) 150 MG TABLET.XL PO (08:14)
[2025-02-05] MEDS: TICAGRELOR 90 MG TABLET PO (08:20)
[2025-02-05] MEDS: Metoprolol(XL)Succ 25 MG Tablet PO (08:20)
[2025-02-05] MEDS: Insulin Glargine-YFGN 100 UNIT/ML Pen 15 UNIT SC (08:22)
[2025-02-05 08:37] LABS: AST(SGOT) 24 U/L (<=31); Alanine Aminotransfer ALT/SGPT 14 U/L (<=34); Albumin, Serum 3.7 g/dL (3.5-5.0); Alkaline Phosphatase 68 U/L (35-104); Anion Gap 12 (5-15); BUN 5 mg/dL (4-19); BUN/Creat Ratio 9.6 RATIO (10-20); Calcium,Total 8.9 mg/dL (7.6-11.0); Carbon Dioxide 24.4 mmol/L (21.0-32.0); Chloride 96 mmol/L (98-108); Estimated Creatinine Clearance 158.31 ml/min (50-250); Globulin 2.3 g/dL (2.2-4.2); Glucose 289 mg/dL (70-99); Potassium 3.9 mmol/L (3.3-5.1)
--- NOTE | 2025-02-05 10:00 | EKG12_ITS ---
Test Reason : am ekg Blood Pressure : */* mmHG Vent. Rate : 97 BPM Atrial Rate : 97 BPM P-R Int : 146 ms QRS Dur : 72 ms QT Int : 416 ms P-R-T Axes : 63 -50 -33 degrees QTcB Int : 528 ms Normal sinus rhythm Left axis deviation Inferior infarct , age undetermined Prolonged QT Abnormal ECG When compared with ECG of 02-Feb-2025 00:20, MANUAL COMPARISON REQUIRED DATA IS UNCONFIRMED Confirmed by DEBRA BRANTLEY, ONEAL ([id number]), restaurant expeditor MIGUEL ANGEL RAMIREZ ([id number]) on 02/07/2025 6:34:52 AM Referred By: Confirmed By: ONEAL RICHARDSON MD
--- NOTE | 2025-02-05 12:03 | DS.PCM_ITS ---
Providers Date of Admission: 01/28/25 Date of Discharge: 02/05/25 Primary Care Physician: Dr. Karena Thompson MD Consultations 02/02/25 00:16 Consult: Cardiology Routine Consulting Provider: Carmencita James Reason for Consult: STEMI EMERGENT Consult: Yes MD Notified: Yes Date Notified: 02/02/25 Time Notified: 00:16 Method of Notification: Verbal 02/02/25 20:07 Consult: Hospitalist Routine Consulting Provider: Casey Thorpe Reason for Consult: electrolyte replacement EMERGENT Consult: No Notified: Yes Date Notified: 02/02/25 Time Notified: 08:06 Method of Notification: Text Reason For Visit: INTRACTABLE NAUSEA NAD VOMITING Diagnosis Discharge Diagnosis (1) Type 2 diabetes mellitus with gastroparesis: Status: Acute Code(s): E11.43 - Type 2 diabetes mellitus with diabetic autonomic (poly)neuropathy; K31.84 - Gastroparesis (2) Acute dehydration: Status: Acute Code(s): E86.0 - Dehydration (3) Intractable vomiting with nausea: Status: Acute Code(s): R11.2 - Nausea with vomiting, unspecified Plan #Acute STEMI * She developed chest pain one night ago. EKG done was concerning for ST elevation SD. Initial troponin was 176 and peaked at 609. * Cardiology on board and she is for cardiac cath today. Chest pain had improved today. Sublingual nitroglycerin as needed. * On heparin drip as well as metoprolol * she had cardiac cath which showed multivessel CAD with successful JAMILA to mid RCA * She is to have staged PCI of left circumflex and LAD today. * Cardiology on board. 2D echo showed EF of 55% and akinetic inferior basal wall as well as normal left ventricular systolic function. * On aspirin and Brilinta as well as high intensity statin. #intractable nausea and vomiting * this is in the setting of known gastroparesis. She is also on mounjaro though she says she doesnt want to take this anymore * she also has a history of chronic marijuana dependence. These can all cause intractable nausea and vomiting. * on IV zofran. Phenergan added on. * largely resolved * #Anion gap metabolic acidosis * was treated presumptively for DKA in the setting of anion gap metabolic acidosis, though there was no clear evidence of DKA * anion gap has closed x 2 and on onsulin drip. Insulin drip dc'd and patient started on SQ lantus 15 units daily. * moderate to high dose sliding scale. Accuchecks ACHS. * Has now resolved. Bicarb is 26.3 and anion gap is 10. * #A-fib: Patient still mildly tachycardic. She is on metoprolol 25 mg daily #Hypokalemia: Resolved. Potassium is 3.6. #TYpe 2 diabetes mellitus * Has associated history of gastroparesis. Treated for DKA as above. On Lantus 15 units daily. * Insulin sliding scale. Accuchecks ACHS. #History of chronic pain: * On oxycodone and Percocet. * Receives medication as prescribed by Tatiana Nova per SHANNA. * #DVT prophylaxis: lovenox Code status: full code Medications at Discharge Home Medications metoclopramide HCl 10 mg tablet 10 mg PO 4X/DAY PRN Headache #30 tabs 01/27/25 bupropion HCl 150 mg 24 hr tablet, extended release 150 mg PO DAILY 01/28/25 cyclobenzaprine 10 mg tablet 10 mg PO DAILY PRN pain 01/28/25 hydroxyzine pamoate 50 mg capsule 50 mg PO TID PRN PRN allergies 01/28/25 metformin 500 mg tablet 1,000 mg PO BID 01/28/25 mirtazapine 15 mg tablet 15 mg PO QHS 01/28/25 nitrofurantoin monohydrate/macrocrystals 100 mg capsule 1 cap PO BID 01/28/25 oxycodone 10 mg tablet 10 mg PO TID PRN PRN pain 01/28/25 sertraline 100 mg tablet 150 mg PO DAILY 01/28/25 aspirin 81 mg tablet,delayed release 81 mg PO BREAKFAST #30 tabs 02/05/25 atorvastatin 40 mg tablet 40 mg PO QHS #30 tabs 02/05/25 insulin glargine U-300 conc 300 unit/mL (3 mL) subcutaneous pen (Toujeo Max U- 300 SoloStar) 15 unit (0.05 mL) subcut DAILY #6 mL 02/05/25 metoprolol succinate 25 mg tablet,extended release 24 hr 25 mg PO BID #60 tabs 02/05/25 potassium chloride 20 mEq tablet,extended release (K-Tab) 20 meq PO DAILY #30 tabs 10/04/25 spironolactone 25 mg tablet 12.5 mg (1/2 x 25 mg) PO DAILY #30 tabs 02/05/25 ticagrelor 90 mg tablet (Brilinta) 90 mg PO BID #60 tabs 02/05/25 Hospital Course Operations None Procedures 2-D Echocardiogram and Cardiac catheterization Summary of Care Provided Minutes Spent on Discharge: 45 Hospital Course: Patient is a 49-year-old female with past medical history as outlined which includes gastroparesis was admitted to the ED on 01/28/2025 with complaint of intractable nausea and vomiting. Patient was on Mounjaro and took it some orantes before admission but subsequently started having nausea and vomiting. Her nausea and vomiting subsequently persisted and worsened so she came into the ED. She says she had had mild nausea and vomiting previously but it had worsened. She was also complaining of abdominal pain due to the retching. She was admitted and managed for intractable nausea and vomiting which was thought to be due to use of Mounjaro. She also had a history of taking marijuana and so this was thought to be contributing to her symptoms also. Patient also had a high anion gap metabolic acidosis but this was thought to be due to euvolemic DKA due to the Mounjaro. She was hydrated with IV fluids and given Zofran and Phenergan. She was placed on a an insulin drip for presumptive euglycemic DKA due to the Mounjaro. GI was discontinued subsequently. Anion gap however persisted so she was placed on bicarb drip. Anion gap subsequently closed. Hospital course was complicated by patient developing chest pain. EKG done showed ST elevation SD. She was started on a heparin drip and cardiology was consulted. Initial troponin was 176 and peaked at 609. She had 2D echo which showed EF of 55% and akinetic inferior basal wall as well as normal left ventricular systolic function. She had cardiac cath which showed multivessel disease and she had successful JAMILA to the mid RCA. She subsequently had staged PCI with stent placement in the left circumflex artery a couple of days later. She was placed on aspirin and Brilinta as well as high intensity statin. Mounjaro was discontinued as patient says she did not want to be on this and she was placed on subcu Lantus 15 units daily. She remained stable and was discharged home on 02/05/2025. She is follow-up with her primary care doctor and follow-up with cardiology for further staged PCI of the LAD. Patient was seen and examined prior to discharge. She had no active complaints and had an uneventful night. Her significant other was by her bedside. Her nausea and vomiting have resolved. Review of systems otherwise negative. Labs and vitals reviewed. Medication reviewed and reconciled. Physical Exam Const alert, oriented x3 and no apparent distress General Appearance: cooperative and comfortable HEENT normocephalic, head/scalp atraumatic, hearing grossly normal bilaterally, moist oral mucous membranes and oropharynx normal Mouth: oral and palatal mucosa normal Eyes EOMs intact bilaterally Neck supple and no JVD Lymph Lymphatic: no lymphedema noted Resp normal respiratory effort, normal air movement, no retractions, no use of accessory muscles and clear to auscultation bilaterally Cardio regular rate, regular rhythm, S1 normal heart sound, S2 normal heart sound and no murmurs Cardio Narrative: tachycardic GI normal to inspection, nondistended, normoactive bowel sounds, soft to palpation, non-tender, non-distended and hepatosplenomegaly Extremity normal to inspection, full ROM and normal capillary refill General Extremity: no tenderness to palpation of joints or extremities Skin no rashes or lesions noted General Skin Exam: no breakdown and turgor normal Neuro CN's II-XII intact bilaterally, moves all extremities, no focal motor deficits and no sensory deficits noted Sensorium / Orientation: awake and alert Motor Exam: strength 5/5 throughout and general weakness Psych thought process normal and cooperative Appearance: appropriate Weight / BMI Weight Weight: 223 lb 12.307 oz Body Mass Index (BMI) 31.1 ABG / Lab / Microbiology Data 02/05/25 07:30 02/05/25 07:30 Laboratory: Laboratory Results - last 24 hr 02/04/25 21:20: POC Glucose 236 H 02/05/25 07:30: WBC 13.5 H, RBC 4.83, Hgb 13.3, Hct 39.2, MCV 81.2, MCH 27.5, MCHC 33.9, RDW Std Deviation 39.0, RDW Coeff of Katrina 13.3, Plt Count 285, MPV 11.2, Immature Gran % (Auto) 0.400, Neut % (Auto) 70.1 H, Lymph % (Auto) 19.2, [place] % (Auto) 8.0, Eos % (Auto) 1.7, Baso % (Auto) 0.6, Absolute Neuts (auto) 9.5 H, Absolute Lymphs (auto) 2.59, Nucleated RBC % 0, Sodium 132 L, Potassium 3.9, Chloride 96 L, Carbon Dioxide 24.4, Anion Gap 12, BUN 5, Creatinine 0.57 L, Estim Creat Clear Calc 158.31, Est GFR (MDRD) Non-Af 112, BUN/Creatinine Ratio 9.6 L, Glucose 289 H, Calcium 8.9, Total Bilirubin 0.63, AST 24, ALT 14, Alkaline Phosphatase 68, Total Protein 6.0, Albumin 3.7, Globulin 2.3, Albumin/Globulin Ratio 1.6 D/C Instructions Discharge Activity: Return to Normal Activity Weight Bearing Status: Weight bearing as tolerated Call your doctor if you observe: Fever of 101 or Higher, Shortness of breath, Swelling in the ankles, Chest pain and Increased palpitations (irregular heartbeat) DC O2, CPAP, BIPAP Needs Home O2 Discharge instructions: No Meaningful Use Info Meaningful Use Meaningful Use Diagnoses (Choose all that apply): None applicable AMI/Post PCI/Angioplasty Aspirin given w/in 24hrs of arrival?: Yes ASA at discharge?: Yes Antiplatelet Therapy at Discharge:: Yes Jesus/ARB at discharge?: No Reason Jesus/ARB not ordered:: Not indicated Beta Brooke at discharge?: Yes Done w/ Acute SD measure.: Yes Documented LVEF (%): 55 Discharge Plan Admission Admit Date/Time: 01/28/25 07:55 Primary Reason for Your Visit: STEMI, intractable nausea and vomiting Attending Provider: Karlee Balbuena Primary Care Provider: Karena Thompson Consulting Providers: Steve Dockery; Carmencita James; Casey Thorpe Instructions Patient Instructions: Heart Attack: Leaving the Hospital, Heart Attack Discharge Orders/Prescriptions Prescriptions: New spironolactone 25 mg Tablet 12.5 mg PO DAILY Qty: 30 1RF metoprolol succinate 25 mg Tablet Extended Release 24 Hr 25 mg PO BID Qty: 60 2RF ticagrelor [Brilinta] 90 mg Tablet 90 mg PO BID Qty: 60 2RF atorvastatin 40 mg Tablet 40 mg PO QHS Qty: 30 2RF aspirin 81 mg Tablet,Delayed Release (Dr/Ec) 81 mg PO BREAKFAST Qty: 30 2RF insulin glargine U-300 conc [Toujeo Max U-300 SoloStar] 300 unit/mL (3 mL) insulin pen 15 unit subcut DAILY Qty: 6 2RF potassium chloride [K-Tab] 20 mEq tablet extended release 20 meq PO DAILY Qty: 30 1RF Continued cyclobenzaprine 10 mg tablet 10 mg PO DAILY PRN (Reason: pain ) bupropion HCl 150 mg tablet extended release 24 hr 150 mg PO DAILY metformin 500 mg tablet 1,000 mg PO BID hydroxyzine pamoate 50 mg capsule 50 mg PO TID PRN PRN (Reason: allergies) mirtazapine 15 mg tablet 15 mg PO QHS oxycodone 10 mg tablet 10 mg PO TID PRN PRN (Reason: pain) sertraline 100 mg tablet 150 mg PO DAILY nitrofurantoin monohyd/m-cryst 100 mg capsule 1 cap PO BID metoclopramide HCl 10 mg tablet 10 mg PO 4X/DAY PRN (Reason: Headache) Qty: 30 0RF Rx Instructions: 1/2-hour AC and at bedtime Discontinued Mounjaro 10 mg/0.5 mL pen injector 10 mg subcut QWEEK Patient Comments: MONDAYS metoprolol succinate 25 mg tablet extended release 24 hr 25 mg PO DAILY Patient Comments: patient reports she takes this every other day since seeing [facility] specialist at [facility] Referrals / Follow Up: Karena Thompson MD [Primary Care Provider, Family Practice] - Within 1 Week Casey Thorpe MD [Med Staff - Active Staff, Cardiology] - Within 2 Weeks Disposition Disposition (needs filled in before D/C Order can be placed): Home, Self Care Charges/Coding Visit Charges Inpatient E&M: 30272 Disch Hosp >30min
--- NOTE | 2025-02-07 09:04 | CL.I_ITS ---
Patient Name: SERAFIN DONALDSON Study Date: 02/04/2025 Performing: Ollie James MD Ht: 71 inches 180 cm : 1975 Wt: 221.4 lbs 100.3 kg Age: 49 Gender: female BSA: 2.2 PROCEDURE(S) PERFORMED IC12-(92162/C9600)JAMILA W/WO PTCA, SINGLE CORONARY ARTERY CLINICAL PROFILE AND CO-MORBIDITIES Indications: Staged PCI of known severe stenosis Heart Failure: None CONCLUSIONS Successful JAMILA to mLCx RECOMMENDATIONS PCI of LAD in 4-6 weeks DESCRIPTION OF PROCEDURE The patient arrived to the procedure lab. The risks and benefits of the procedure as well as a full description of our services here and current unavailability of surgical backup were fully explained to the patient and/or their significant other prior to the catheterization. The Timeout was completed, verifying the correct patient and procedure. The patient's procedural site was prepped and draped in the usual fashion. Local anesthetic was given subcutaneously to right radial region with Lidocaine 2%. Using a modified Seldinger technique, arterial access was obtained via the right radial artery, a 6Fr sheath was inserted.. The images were reviewed and options discussed. A decision was then made to proceed with an Intervention, IVUS or other adjunct procedure. XB 3 Guide catheter was inserted and engaged into the LCA. BMW Guide wire was advanced to the Circumflex. Runthrough Guide wire was inserted as a robi wire 2.25x20 Emerge Balloon catheter was inserted BMW wire Balloon catheter was advanced across lesion in the circumflex, mid. PTCA balloon inflated at 6 atms for 15 secs. Angiogram performed post balloon dilatation. 2.25x38 [place] Drug Eluting stent was inserted over Runthrough wire Drug Eluting stent was advanced across the lesion in the circumflex, mid. Angiogram performed post stent deployment. 2.5x20 NC Emerge Balloon catheter was inserted. Balloon catheter was inserted post stent. Angiogram performed post balloon dilatation. The arterial sheath was pulled and a TR Band was applied for hemostasis.13cc of air INTERVENTION INFORMATION LESION SITE: Circumflex (Mid) Lesion Complexity: High/C, chronic total occlusion: No, lesion at bifurcation: Yes, thrombus present: No, lesion length: 37 mm, culprit lesion: Yes, Previously treated lesion: No Pre Stenosis: 90 % Pre intervention MEHRAN flow: 3 PROCEDURE: Drug Eluting Stent with pre and post dilatation Post Stenosis: 0 % Post intervention MEHRAN flow: 3 Lesion Devices: Chinchilla .014 190cm BMW [place] Straight Cordis 6 Fr XB3.0 100cm Guide Catheter Terumo .014 180cm Runthrough Extra Floppy straight Jack Sci EMERGE MR 2.25x20 BALLOON Medtronic 2.25 x 38 ADELINE FRONTIER JAMILA Jack Sci NC EMERGE MR 2.50x20 BALLOON COMPLICATIONS No Complications PROCEDURE MEDICATIONS Fentanyl 50 mcg IV Versed 1 mg IV Versed 1 mg IV Oxygen: 2 L/min via nasal cannula Heparin given IA 02/04/2025 11:07:38 Heparin 5000 unit(s) IV 02/04/2025 11:07:49 Verapamil 2.5mg, Ntg 100mcgs, 3000 units of Heparin given IA 02/04/2025 11:07:38 SUMMARY OF HEMODYNAMIC DATA Time AIR REST ECG 10:50:46 AO 148/80 (113) SA 11:08:21 Signed By Ollie James MD On 02/08/2025 13:58:36 Signed By Ollie James MD On 02/07/2025 09:03:49 Ollie James MD
== END 2025-02-05 13:05 | disposition home or self-care (01) | DRG 981 ==
LOC: ED 07:57 → MS3 08:25 → ICU 01-30 12:37
PROVIDERS: Family Medicine; Internal Medicine Cardiovascular Disease; Emergency Provider Emergency Medicine; PCP Family Medicine; Visit Provider Student in an Organized Health Care Education/Training Program
DX: E11.10 Type 2 diabetes mellitus with ketoacidosis without coma (principal); I21.3 ST elevation (STEMI) myocardial infarction of unspecified site; I47.29 Other ventricular tachycardia; G90.A Postural orthostatic tachycardia syndrome [POTS]; E11.65 Type 2 diabetes mellitus with hyperglycemia; I48.0 Paroxysmal atrial fibrillation; E86.0 Dehydration; E11.43 Type 2 diabetes mellitus with diabetic autonomic (poly)neuropathy; E87.6 Hypokalemia; K31.84 Gastroparesis; I25.10 Atherosclerotic heart disease of native coronary artery without angina pectoris; F41.9 Anxiety disorder, unspecified; Z79.4 Long term (current) use of insulin; G89.29 Other chronic pain; Z95.5 Presence of coronary angioplasty implant and graft; Z79.84 Long term (current) use of oral hypoglycemic drugs; Z79.899 Other long term (current) drug therapy
CPT/HCPCS: 36415; 36600; 74177; 80048; 80051; 80053; 80076; 81001; 82010; 82803; 82962; 83036; 83605; 83690; 83735; 83930; 84100; 84132; 84443; 84484; 85025; 85610; 85730; 92928; 93005; 93306; 93454; 97802; 99152; 99153; 99284; C1757; C1769; C1874; C1887; C1894; Q9957; Q9967; A4216; C1725; C8929; C9600; J1327; J2405

== ENCOUNTER → 2025-02-11 | Outpatient (CLI) | payer OTHER, SELFPAY ==
[2025-02-11 14:22] LABS: Anion Gap 15 (5-15); BUN 4 mg/dL (4-19); BUN/Creat Ratio 5.3 RATIO (10-20); Calcium,Total 9.3 mg/dL (7.6-11.0); Carbon Dioxide 24.0 mmol/L (21.0-32.0); Chloride 95 mmol/L (98-108); Glucose 208 mg/dL (70-99); Magnesium 1.1 mg/dL (1.5-2.2); Potassium 4.1 mmol/L (3.3-5.1)
== END | disposition home or self-care (01) ==
LOC: LAB 12:29
PROVIDERS: PCP Family Medicine; Referring Provider Nurse Practitioner Gerontology; Visit Provider Nurse Practitioner Gerontology
DX: I25.10 Atherosclerotic heart disease of native coronary artery without angina pectoris (principal); I47.20 Ventricular tachycardia, unspecified
CPT/HCPCS: 36415; 80048; 83735

== ENCOUNTER → 2025-02-25 | Outpatient (CLI) | payer OTHER, SELFPAY ==
[2025-02-25 13:37] LABS: Hematocrit 39.5 % (37-47); Hemoglobin 13.1 g/dL (12.0-15.0); Immature Granulocytes Count 0.040 X10^3/uL (0.0-0.0); Mean Corp Hgb Conc 33.2 g/dL (32-36); Mean Corpuscular Volume 81.8 fL (81-99); Mean Platelet Vol. 11.0 fl (6.2-12.0); NRBC Flagged by Analyzer 0 % (0-5); Platelet Count 362 K/mm3 (150-450); RBC Distribution Width CV 12.9 % (11.6-14.6); RBC Distribution Width SD 38.5 fl (35.1-43.9); Red Blood Count 4.83 M/mm3 (4.2-5.4); White Blood Count 12.8 K/mm3 (4.4-11.0)
[2025-02-25 14:03] LABS: Internal QC Validated? YES +Cl - CLEAR BKGD; Pregnancy, Serum, hCG Quali. NEGATIVE Negative; Record Kit Lot#, Serum Preg. 0000980607
[2025-02-25 14:15] LABS: Anion Gap 12 (5-15); BUN 6 mg/dL (4-19); BUN/Creat Ratio 9.8 RATIO (10-20); Calcium,Total 9.3 mg/dL (7.6-11.0); Carbon Dioxide 23.1 mmol/L (21.0-32.0); Chloride 100 mmol/L (98-108); Glucose 284 mg/dL (70-99); Magnesium 1.3 mg/dL (1.5-2.2); Potassium 4.6 mmol/L (3.3-5.1)
== END | disposition home or self-care (01) ==
LOC: LAB 12:47
PROVIDERS: PCP Family Medicine; Referring Provider Nurse Practitioner Gerontology; Visit Provider Nurse Practitioner Gerontology
DX: I25.10 Atherosclerotic heart disease of native coronary artery without angina pectoris (principal); E83.42 Hypomagnesemia; Z95.5 Presence of coronary angioplasty implant and graft
CPT/HCPCS: 36415; 80048; 83735; 84703; 85025

== ENCOUNTER 2025-03-07 14:26 | Emergency (ER) | payer OTHER, SELFPAY ==
[2025-03-07] VITALS (7 sets, daily range): BP systolic 103–151; BP diastolic 76–101; PULSE 63–121; RESP 13–22; TEMP 36.4; O2SAT 96–99; BMI 31.2
--- NOTE | 2025-03-07 15:10 | EKG12_ITS ---
Test Reason : CP
--- NOTE | 2025-03-07 15:11 | EX.ED.DYSGE1 ---
HPI History of Present Illness Chief Complaint: Palpitations Narrative Narrative: 49-year-old female past medical history of POTS diagnosed 3 years ago, sees Dr. Thorpe and a physician in [place] regarding her POTS presents with rapid heart rate that began approximately an hour and a half ago. She thought that maybe it was an episode of POTS as she was just sitting and seems to be worsened with sitting up and standing, however she states those episodes usually resolve after few minutes. This has been maintained. She also has past medical history of coronary artery disease with 2 stents. She states she is due for another stenting in about a week. She presents with rapid heart rate as high as 150 bpm. On occasion it was slightly irregular. She denies any fevers or chills, no recent nausea or vomiting or other symptoms. [facility] Medical History ASCVD (arteriosclerotic cardiovascular disease) Ventricular tachycardia Hypokalemia Acute coronary syndrome with high troponin Metabolic acidosis Type 2 diabetes mellitus with gastroparesis Acute dehydration Intractable vomiting with nausea Irregular heart beat Congestive heart failure (CHF) Joce-Danlos syndrome Anxiety Type 2 diabetes mellitus Cholecystectomy planned Home Medications ?Medication ?Instructions ?Recorded ?Last Taken ?Type cyclobenzaprine 10 mg tablet 10 mg PO DAILY PRN pain 01/28/25 Unknown History hydroxyzine pamoate 50 mg capsule 50 mg PO TID PRN PRN allergies 01/28/25 Unknown History metformin 500 mg tablet 1,000 mg PO BID 01/28/25 Unknown History mirtazapine 15 mg tablet 15 mg PO QHS 01/28/25 Unknown History oxycodone 10 mg tablet 10 mg PO TID PRN PRN pain 01/28/25 Unknown History insulin glargine U-300 conc 300 15 unit (0.05 mL) subcut DAILY #6 02/05/25 Unknown Rx unit/mL (3 mL) subcutaneous pen mL (Toujeo Max U-300 SoloStar) aspirin 81 mg tablet,delayed 81 mg PO BREAKFAST #90 tabs 02/11/25 Unknown Rx release atorvastatin 40 mg tablet 40 mg PO QHS #90 tabs 02/11/25 Unknown Rx bupropion HCl 150 mg 24 hr tablet, 150 mg PO DAILY 02/11/25 Unknown History extended release insulin lispro 100 unit/mL 1 sliding scale dose subcut 02/11/25 Unknown History subcutaneous pen (Humalog KwikPen USEASDIRECTD (U-100) Insulin) metoprolol succinate 25 mg 25 mg PO QAM #90 tabs 02/11/25 Unknown Rx tablet,extended release 24 hr potassium chloride 20 mEq 20 meq PO DAILY #90 tabs 02/11/25 Unknown Rx tablet,extended release (K-Tab) sertraline 100 mg tablet 150 mg PO DAILY 02/11/25 Unknown History spironolactone 25 mg tablet 12.5 mg (1/2 x 25 mg) PO DAILY #45 02/11/25 Unknown Rx tabs ticagrelor 90 mg tablet (Brilinta) 90 mg PO BID #180 tabs 02/11/25 Unknown Rx magnesium oxide 400 mg PO TID dose increased due 02/25/25 Unknown Rx to low MG #270 caps Allergy/AdvReac Type Severity Reaction Status Date / Time amoxicillin (From Augmentin) Allergy Abd Verified 03/07/25 14:30 cramps/diarrhea cefaclor (From Ceclor) Allergy Abd Verified 03/07/25 14:30 cramps/diarrhea cefuroxime (From Ceftin) Allergy Abd Verified 03/07/25 14:30 cramps/diarrhea clarithromycin (From Biaxin) Allergy Abd Verified 03/07/25 14:30 cramps/diarrhea clavulanic acid (From Allergy Abd Verified 03/07/25 14:30 Augmentin) cramps/diarrhea Latex, Natural Rubber Allergy Swelling Verified 03/07/25 14:30 pineapple Allergy Anaphylaxis Verified 03/07/25 14:30 Sulfa (Sulfonamide Allergy Abd Verified 03/07/25 14:30 Antibiotics) cramps/diarrhea sulfamethoxazole (From Allergy Vomiting Verified 03/07/25 14:30 Bactrim) trimethoprim (From Bactrim) Allergy Vomiting Verified 03/07/25 14:30 Family History Other Joce-Danlos syndrome Surgical History H/O hernia repair Hx of tonsillectomy Social History Smoking Status: Never smoker alcohol intake: never substance use type: marijuana ROS ROS ED ROS Narrative Review of systems is positive for tachycardia. No fevers or chills, no cough, worse with sitting up and standing with history of POTS. Feels heart palpitations and rapid heart rate. EXAM Physical Exam Narrative Exam Narrative: Afebrile. Vital signs noted. Nontoxic-appearing. Cardiovascular examination reveals regular tachycardia. Lungs are clear to auscultation bilaterally. Abdomen is soft and nontender with normal active bowel sounds. No guarding or rebound. Neurological examination nonfocal, nonlateralizing. No appreciable pedal edema bilaterally. Const Vital Signs: 03/07/25 14:27 03/07/25 14:32 03/07/25 15:19 Temperature 97.6 F L Temperature Source Oral Pulse Rate 121 H Respiratory Rate 16 Respiratory Effort Normal Non-Labored Blood Pressure 130/99 H Blood Pressure Mean 109 Pulse Ox 99 Oxygen Delivery Method Room Air Room Air 03/07/25 15:27 03/07/25 16:00 03/07/25 17:00 Temperature Temperature Source Pulse Rate 63 110 H 108 H Respiratory Rate 22 H 20 H 17 Respiratory Effort Blood Pressure 151/101 H 118/88 H 103/76 Blood Pressure Mean 117 98 85 Pulse Ox 96 99 99 Oxygen Delivery Method Room Air Room Air Room Air 03/07/25 17:38 03/07/25 17:47 03/07/25 17:48 Temperature 97.6 F L Temperature Source Pulse Rate 94 94 95 Respiratory Rate 15 15 13 Respiratory Effort Blood Pressure 122/81 H 122/81 H 125/86 H Blood Pressure Mean 94 94 99 Pulse Ox 96 96 98 Oxygen Delivery Method Room Air Room Air MDM MDM MDM Narrative Medical decision making narrative: Differential diagnosis includes but not limited to sinus tachycardia versus atrial fibrillation versus paroxysmal SVT. She may have more of a POTS exam patient or intravascular volume depletion versus dehydration versus other electrolyte abnormality. She already supplements with magnesium. Comprehensive workup was pursued. EKG obtained as interpreted by myself independently as sinus tachycardia at [address] changes. No STEMI. She states that she was recently changed over the last month to decrease her metoprolol because she was taking 50 mg when it would lower her blood pressure too much. She will be bolused normal saline and troponins level as well as CBC, CMP, and magnesium will be obtained. I reviewed her laboratory work and she has a leukocytosis of 19.3 but when compared to prior labs, this is a chronic leukocytosis. Hemoglobin 14.7 with hematocrit 44.0, platelet count elevated at 518 which could be more of an acute phase reactant. D-dimer is less than 0.27. I do not feel she has a CTA and I feel that her tachycardia may be secondary to her POTS. Electrolyte panel shows chloride low at 96 with normal sodium and normal potassium. Glucose elevated at 292 and anion gap slightly elevated at 19. Magnesium 1.4. I do not feel that she is in diabetic ketoacidosis currently. She was given a bolus of IV fluids. Her initial high-sensitivity troponin is 10 with a repeat at 10 as well. I discussed patient with Dr. Thorpe with cardiology. He suggested that she increase her metoprolol back to 25 mg twice a day once at breakfast and once at dinner. Patient was concerned that this caused lightheadedness last time. He also suggested that she be given Lopressor 5 mg intravenously. Repeat examination does show that her heart rate is in the 90s and she feels improved. She has a constant glucose monitor and her glucose is down to 238. She does not want to stay for further labs. She states she has not taken her insulin all day but she is going to take it as soon as she gets home. She has not had any nausea or vomiting. She does not have abdominal pain. At this point in time, I do feel she can be discharged to follow-up. Return instructions reviewed. Disposition is discharged in stable condition. History & Record Review Discussion w/independent historian: Patient Additional record(s) reviewed:: Prior labs Lab Data Attestation: I reviewed the patient's lab results. Labs: Laboratory Results - last 24 hr 03/07/25 03/07/25 14:32 16:45 WBC 19.3 H RBC 5.38 Hgb 14.7 Hct 44.0 MCV 81.8 MCH 27.3 MCHC 33.4 RDW Std Deviation 38.4 RDW Coeff of Katrina 13.0 Plt Count 518 H MPV 11.3 Immature Gran % (Auto) 0.400 Neut % (Auto) 69.6 Lymph % (Auto) 21.3 Hand % (Auto) 6.8 Eos % (Auto) 1.2 Baso % (Auto) 0.7 Absolute Neuts (auto) 13.4 H Absolute Lymphs (auto) 4.11 Nucleated RBC % 0 D-Dimer Quant (PE/DVT) < 0.27 L Sodium 136 Potassium 4.0 Chloride 96 L Carbon Dioxide 21.0 Anion Gap 19 H BUN 7 Creatinine 0.78 Estim Creat Clear Calc 115.80 Est GFR (MDRD) Non-Af 93 BUN/Creatinine Ratio 9.2 L Glucose 292 H Calcium 10.0 Magnesium 1.4 L Troponin T High Sens 10 D Troponin T Hi Sens 2 Hr 10 Radiography Diagnostic Testing: Clinical Impression(s) from Imaging Studies Chest X-Ray 03/07/25 15:15 IMPRESSION: No acute abnormality is seen. Reading Location: [id number] Management Discussion w/another healthcare provider: Director Of Global Sales (Dr. Thorpe, cardiology) Discharge Plan Triage Chief Complaint: Palpitations ED Provider: Blake Topete Dx/Rx/DC Orders Clinical Impression: Palpitations, POTS (postural orthostatic tachycardia syndrome) Instructions: POTS, ED Heart Palpitations Prescriptions: No Action insulin lispro [Humalog KwikPen Insulin] 100 unit/mL insulin pen 1 sliding scale dose subcut USEASDIRECTD ticagrelor [Brilinta] 90 mg tablet 90 mg PO BID Qty: 180 3RF spironolactone 25 mg tablet 12.5 mg PO DAILY Qty: 45 3RF metoprolol succinate 25 mg tablet extended release 24 hr 25 mg PO QAM Qty: 90 3RF atorvastatin 40 mg tablet 40 mg PO QHS Qty: 90 3RF aspirin 81 mg tablet,delayed release (DR/EC) 81 mg PO BREAKFAST Qty: 90 3RF potassium chloride [K-Tab] 20 mEq tablet extended release 20 meq PO DAILY Qty: 90 3RF cyclobenzaprine 10 mg tablet 10 mg PO DAILY PRN (Reason: pain ) metformin 500 mg tablet 1,000 mg PO BID hydroxyzine pamoate 50 mg capsule 50 mg PO TID PRN PRN (Reason: allergies) mirtazapine 15 mg tablet 15 mg PO QHS oxycodone 10 mg tablet 10 mg PO TID PRN PRN (Reason: pain) insulin glargine U-300 conc [Toujeo Max U-300 SoloStar] 300 unit/mL (3 mL) insulin pen 15 unit subcut DAILY Qty: 6 2RF sertraline 100 mg tablet 150 mg PO DAILY Rx Instructions: on hold bupropion HCl 150 mg tablet extended release 24 hr 150 mg PO DAILY Rx Instructions: on hold magnesium oxide 400 mg magnesium capsule 400 mg PO TID Qty: 270 3RF Primary Care Provider: Karena Thompson Referrals: Karena Thompson MD [Primary Care Provider, Family Practice] Casey Thorpe MD [Med Staff - Active Staff, Cardiology] - 1-2 Days if not improving Activity Restrictions/Additional Instructions: Dr. Thorpe suggested taking your 25 mg of metoprolol twice a day at breakfast and at dinner. Did not wait till bedtime to take it. Keep track of your blood pressure as well. You could also follow-up with your jewelry inspector in [place]. Return with new or worsening symptoms. Print Language: Indonesian Disposition Disposition: Home, Self Care
--- NOTE | 2025-03-07 15:15 | RAD_ITS ---
PROCEDURE: RAD/Chest 1 View (Portable)
[2025-03-07] MEDS: 0.9% Normal Saline (1000mL) 1,000 ML 999 ML IV (15:22)
[2025-03-07 15:26] LABS: Hematocrit 44.0 % (37-47); Hemoglobin 14.7 g/dL (12.0-15.0); Immature Granulocytes Count 0.080 X10^3/uL (0.0-0.0); Mean Corp Hgb Conc 33.4 g/dL (32-36); Mean Corpuscular Volume 81.8 fL (81-99); Mean Platelet Vol. 11.3 fl (6.2-12.0); NRBC Flagged by Analyzer 0 % (0-5); Platelet Count 518 K/mm3 (150-450); RBC Distribution Width CV 13.0 % (11.6-14.6); RBC Distribution Width SD 38.4 fl (35.1-43.9); Red Blood Count 5.38 M/mm3 (4.2-5.4); White Blood Count 19.3 K/mm3 (4.4-11.0)
[2025-03-07 15:51] LABS: Anion Gap 19 (5-15); BUN 7 mg/dL (4-19); BUN/Creat Ratio 9.2 RATIO (10-20); Calcium,Total 10.0 mg/dL (7.6-11.0); Carbon Dioxide 21.0 mmol/L (21.0-32.0); Chloride 96 mmol/L (98-108); Estimated Creatinine Clearance 115.80 ml/min (50-250); Glucose 292 mg/dL (70-99); Magnesium 1.4 mg/dL (1.5-2.2); Potassium 4.0 mmol/L (3.3-5.1); Troponin T High Sensitivity 10 ng/L (<=14)
[2025-03-07 16:10] LABS: D-Dimer Quantitative (DVT/PE) < 0.27 FEU/ug/m (0.27-0.49)
[2025-03-07 17:23] LABS: Troponin T High Sens 2 HR 10 ng/L (<=14)
== END 2025-03-07 18:08 | disposition home or self-care (01) ==
PROVIDERS: Emergency Provider Emergency Medicine; PCP Family Medicine; Visit Provider Emergency Medicine
DX: G90.A Postural orthostatic tachycardia syndrome [POTS] (principal); I50.9 Heart failure, unspecified; E11.9 Type 2 diabetes mellitus without complications; Z79.4 Long term (current) use of insulin; I25.10 Atherosclerotic heart disease of native coronary artery without angina pectoris; R00.2 Palpitations; Z90.49 Acquired absence of other specified parts of digestive tract; Z79.84 Long term (current) use of oral hypoglycemic drugs; Z79.82 Long term (current) use of aspirin; F41.9 Anxiety disorder, unspecified
CPT/HCPCS: 71045; 80048; 83735; 84484; 85025; 85379; 93005; 96361; 96374; 99284; A4216

== ENCOUNTER 2025-03-16 11:51 | Observation (INO) | payer OTHER, SELFPAY ==
--- NOTE | 2025-02-24 10:14 | PCM.HP.BLA ---
History and Physical Date of Admission: 03/16/25 Diamond Brito is a 49 year old female who presents to the cardiac catheterization lab for a staged PCI of the mid LAD. Patient presented to the emergency room on 01/28/2025 with complaints of nausea and vomiting. She has a history of diabetes and gastroparesis. She was noted to be dehydrated, and there was a concern for DKA. Patient had an elevated white count; her CT of the abdomen demonstrated no acute infection or obstruction. After multiple doses of antiemetic medication she was still having episodes of nausea and vomiting, her serum bicarb had dropped from 18-13 and her beta hydroxybutyrate was elevated at 3.6. Due to her significant dehydration, and laboratory findings she was admitted for further evaluation. Cardiology was consulted on 02/02/2025 after patient developed chest symptoms with radiation down her left arm. Her ECG at that time showed Q waves in the inferior leads with ST segment elevation. She underwent a cardiac catheterization on 02/02/2025 which demonstrated multivessel CAD: Mid LAD 80% stenosis followed by a 60 to 70% stenosis, circumflex artery 90% stenosis in her mid circumflex, and 99% stenosis in her mid RCA. She did undergo successful JAMILA to the mid RCA with recommendation to return for staged PCI of the LCx and LAD. She did undergo an echocardiogram on 02/02/2025 which demonstrated an ejection fraction of 55%, mild segmental systolic dysfunction, and normal valves. Patient underwent a staged PCI to her mid left circumflex on 02/07/2025. It is recommended that she continue with her staged PCI of the LAD in 4 to 6 weeks. Patient had presented to [facility] in [place] with complaints of feeling lightheaded and dizzy on 02/08/2025. Despite IV fluids, lightheadedness, and weakness patient was admitted for further evaluation. She had requested a transfer to [facility], but due to staffing issues she was unable to be accepted as a transfer. Therefore she was admitted to [facility] for further management and treatment. From a cardiac standpoint, the patient is doing well. She does acknowledge occasional palpitations. She denies chest pain, pressure or heaviness. She does acknowledge occasional SOB with walking longer distances-this has improved. She denies Orthopnea, and PND. She does not have bleeding issues; no blood in urine, stool, or nosebleeds. She denies any decrease in energy level, myalgias, or claudication. She does not have edema, or sudden weight gain. She does acknowledge occasional lightheadedness-this has improved. She attributes this to her POTS. She denies dizziness, syncopal or near syncopal episodes, and headaches. Intake Vital Signs: See EMR Allergies: See EMR Medications: See EMR PFSH Medical History ASCVD (arteriosclerotic cardiovascular disease) Ventricular tachycardia Hypokalemia Acute coronary syndrome with high troponin Metabolic acidosis Type 2 diabetes mellitus with gastroparesis Acute dehydration Intractable vomiting with nausea Irregular heart beat Congestive heart failure (CHF) Joce-Danlos syndrome Anxiety Type 2 diabetes mellitus Cholecystectomy planned Surgical History H/O hernia repair Hx of tonsillectomy Family History Other Joce-Danlos syndrome Social History Smoking Status: Never smoker alcohol intake: never substance use type: marijuana ROS Const Const: Negative for fatigue, weakness, headache(s) or frequent falls Eyes Eyes: Negative for blurry vision ENT ENT: Negative for headache(s), dizziness or Nosebleed/epistaxis Cardio Chest Pain: No Palpitations: Yes Edema: None Muscle aches with walking: None Resp Respiratory: Positive for SOB with activity (improving); Negative for SOB at rest or SOB orthopnea\SOB lying down GI GI: Negative nausea, vomiting, heartburn, bright, red blood in stools or black,tarry stools : Negative for hematuria Neuro Neuro: Positive for lightheadedness; Negative for dizziness, near syncope, syncope, frequent falls, headache(s), weakness or blurry vision Endo Endo: Negative for fatigue Cardiology Exam Const Appearance: cooperative, healthy appearing, comfortable and no acute distress Nutritional Appearance: average body habitus and obese Orientation: alert, awake and oriented x3 Head Head: normal to inspection, normocephalic and atraumatic Ears: hearing grossly normal bilaterally Face and Sinus: face symmetric Mouth: oral mucosae normal Eyes General: appearance normal, both eyes and all related structures Eyelids: eyelids normal Pupils: PERRL Neck Neck: normal visual inspection and no lymphadenopathy Carotids: normal carotid upstroke Chest Chest inspection: normal inspection of the chest and symmetric chest movement Auscultation: Bilateral: Clear to Auscultation Cardio Palpation: normal PMI Rate: tachycardic Rhythm: regular rhythm Heart sounds: S1 normal and S2 normal; Negative rub, gallop or murmur GI GI: normal to inspection, soft and obese Neuro General: patient alert and patient oriented x3 Skin Skin: ecchymosis (at right radial catheterization site) Extremities Pulses: Normal: Right Radial Pulse and Left Radial Pulse Bruits: Negative: Right Radial Bruit Lower Extremity Edema: None: Bilateral Psych Psychological: normal affect Supplemental Info Supplemental Information Echocardiogram 02/02/2025 Interpretation Summary Normal LV size. Left ventricular systolic function is normal. The left ventricular ejection fraction is 55 %. Infero-Basal: Akinetic. Contrast injection was performed. Catheterization 02/02/2025 RCA 99% occlusion LAD 80% occulsion Left Cx 90% occulsion Assessment and Plan Assessment and Plan (1) Coronary artery disease status post coronary stent insertion: Status: Acute Comment: 02/02/2025?JAMILA to the RCA. 02/07/2025?JAMILA to the mLCx Plan: Patient has a history of coronary artery disease with stent placement to her RCA, and mLCx. Her cardiac catheterization from 02/02/2025 was reviewed, and demonstrated multivessel CAD?80% stenosis followed by a 60 to 70% stenosis in her mid LAD, 90% stenosis in her mid LCx, and 99% stenosis in her mid RCA. Her RCA, and mLCx were recently stented. She will proceed with staged PCI of the mid LAD. Cardiac Catheterization instructions were reviewed with patient, and she verbalizes understanding.
--- NOTE | 2025-03-11 14:41 | RAD_ITS ---
PROCEDURE: CHEST PA AND LATERAL 03/11/2025 REASON FOR EXAM: CARDIAC CATH TECHNIQUE: Procedure Code: RADCXR Modality: DX Procedure: CHEST PA AND LATERAL COMPARISON: March 07, 2025. FINDINGS: Hardware: None Heart: The heart is nonenlarged. Mediastinum: The mediastinal contour is unremarkable. Lungs: The lungs are clear. Bones: The bones are unremarkable. RAD/Chest PA and Lateral IMPRESSION: NO ACUTE FINDINGS. Reading Location: [id number]
[2025-03-11 16:03] LABS: Magnesium 1.5 mg/dL (1.5-2.2)
[2025-03-15 08:07] VITALS: BMI 30.9
[2025-03-16] VITALS (10 sets, daily range): BP systolic 91–122; BP diastolic 56–87; PULSE 76–90; RESP 16–18; TEMP 36.6–36.8; O2SAT 93–99
[2025-03-16 11:56] LABS: ACT Activated Clotting Time 230 sec (74-137)
--- NOTE | 2025-03-16 12:00 | EKG12_ITS ---
Test Reason : PCI Blood Pressure : */* mmHG Vent. Rate : 88 BPM Atrial Rate : 88 BPM P-R Int : 162 ms QRS Dur : 82 ms QT Int : 384 ms P-R-T Axes : 57 -44 -4 degrees QTcB Int : 464 ms Normal sinus rhythm Left axis deviation Inferior infarct , age undetermined Abnormal ECG When compared with ECG of 16-Mar-2025 11:58, MANUAL COMPARISON REQUIRED DATA IS UNCONFIRMED Confirmed by DEBRA BRANTLEY, ONEAL ([id number]), senior technical editor CRICKET KATHLEEN ([id number]) on 03/21/2025 9:29:54 AM Referred By: Carmencita James Confirmed By: ONEAL JAMES MD
[2025-03-16] MEDS: Insulin Glargine-YFGN 100 UNIT/ML Pen 16 UNIT SC (12:59)
[2025-03-16] MEDS: Magnesium Chloride 64 MG Delay Rel.Tablet 128 MG PO ×2 (14:12→21:38)
--- NOTE | 2025-03-16 15:06 | CRPHASE1_ITS ---
Patient Communication Patient Information Former Patient:: Phase I PHII Cardiac Rehab Discussed with Patient:: Yes Guide to Cardiac Rehab Given to Patient:: Yes Cardiac Rehab Facility Choice List Given to Patient:: Yes Communication to Cardiac Rehab Community Health Nurse:: Carmencita James Cardiac Rehabilitation Info Program Information Cardiac Rehabilitation Program Information: Cardiac Rehab The cardiac rehab team at [facility] consists of highly skilled exercise physiologists, nurses, respiratory therapists and physicians working together with you. Our purpose is to help you have a full recovery and achieve the goals you set for yourself. Over the years many of our patients have returned to activities they assumed they would never do again! We can help restore your confidence and motivation to make lifestyle changes that can have a significant impact on your health and quality of life! We can help answer questions and concerns you may have about exercise, lifestyle, medications, diet, stress and anxiety which are common following a hospitalization. WE monitor ECG and vital signs during exercise and discuss your progress with you and report to your physician(s). Cardiac Rehab is proven to help reduce readmissions, improve functional capacity and lower recurrence of problems with your heart. Our Cardiac Rehab program is Certified by the [employer] (AACVPR) and Accredited by the [employer] through our [facility]. You can contact us at . We invite you to call us with your questions or to get started in our program. If you have other questions or concerns be sure to ask your physician/provider during your follow-up visit. WE look forward to seeing you!
--- NOTE | 2025-03-16 15:07 | CRPH1.INSTRU ---
General Education Discussed with Patient CAD and cardiac anatomy and function:: Patient communicates acknowledgment Explanation of diagnoses and procedures:: Patient communicates acknowledgment Sign/Symptoms of TN:: Patient communicates acknowledgment Antiplatelet therapy: Patient communicates acknowledgment Proper use of NTG-SL: Patient communicates acknowledgment Emergency procedures and activation of EMS: Patient communicates acknowledgment Compliance of all prescribed medications: Patient communicates acknowledgment Smoking Risk Factors Patient Nicotine/Smoking Risk Factors Are:: Never smoked Recommendations Recommendations Include:: Second-hand smoke recommendation Response Code Nicotine/Smoking Response Code:: Patient communicates acknowledgment Dyslipidemia Risk Factors Patient Dyslipidemia Risk Factors Are:: Total Cholesterol, Triglycerides, HDL and LDL Recommendations Recommendations Include:: Lipid profile not available, Reviewed NCEP/ATP guidelines and Therapeutic Lifestyle Change dietary guidelines Response Code Dyslipidemia Response Code:: Patient communicates acknowledgment Overweight/Obesity Risk Factors Patient Overweight/Obesity Risk Factors Are:: Overweight = 26-29 Recommendations Recommendations Include:: Weight loss of 5-10% and Reduced calorie diet Response Code Overweight/Obesity:: Patient communicates acknowledgment Hypertension Recommendations Recommendations Include:: Maintain BP <130/85, BP <130/80 if diabetic, DASH dietary guidelines, Decrease/maintain normal body weight and Moderation of ETOH Response Code Hypertension:: Patient communicates acknowledgment Heart Disease Risk Factors Patient Heart Disease Risk Factors Are:: Family history of heart disease < 65 years old and Previous cardiac event Recommendations Recommendations Include:: Educated family members of their risk and Educated family members of importance of prevention of heart disease Response Code Heart Disease Response Code:: Patient communicates acknowledgment Diabetes Risk Factors Patient Diabetes Risk Factors Are:: Elevated blood sugars and Post-op hyperglycemia Recommendations Recommendations Include:: Maintain fasting blood sugars 70-110 md/dL, Maintain HgbA1c of 6% or less, Monitor blood sugar as prescribed, Diabetic dietary guidelines and Decrease/maintain body weight Response Code Diabetes:: Patient communicates acknowledgment Metabolic Syndrome Risk Factors Patient Metabolic Syndrome Risk Factors Are [3 of 5]:: Fasting blood sugar > 100 mg/dL, Waist circumference > 35 [female] or 40 [male], High triglyceride >150, Hypertension and Low HDL <40 [male] or < 50 [female] Recommendations Recommendations Include:: Reinforce compliance to risk factor modifications, Patient is diabetic and Encouraged follow-up with Primary Care Physician Response Code Metabolic Syndrome Response Code:: Patient communicates acknowledgment Sedentary Risk Factors Patient Sedentary Risk Factors Are:: Lack of regular exercise Recommendations Recommendations Include:: Aerobic exercise 5-7 times/week for 20-30 minutes continuously, Benefits of regular exercise, Discussed home walking program and Monitored Outpatient Cardiac Rehab Response Code Sedentary Response Code:: Patient communicates acknowledgment Stress Recommendations Recommendations Include:: Identification of stressors, and assessment of coping skills and Stress management techniques Response Code Stress Response Code:: Patient communicates acknowledgment
[2025-03-16] MEDS: APIXABAN 5 MG TABLET PO (21:36)
[2025-03-17 02:00] VITALS: BP 116/81; PULSE 85; RESP 16; TEMP 36.5; O2SAT 94
[2025-03-17 05:24] LABS: Hematocrit 37.5 % (37-47); Hemoglobin 12.5 g/dL (12.0-15.0); Mean Corp Hgb Conc 33.3 g/dL (32-36); Mean Corpuscular Volume 81.7 fL (81-99); Mean Platelet Vol. 11.1 fl (6.2-12.0); Platelet Count 347 K/mm3 (150-450); RBC Distribution Width CV 12.7 % (11.6-14.6); RBC Distribution Width SD 37.9 fl (35.1-43.9); Red Blood Count 4.59 M/mm3 (4.2-5.4); White Blood Count 11.3 K/mm3 (4.4-11.0)
[2025-03-17 05:50] LABS: Scan Indicated on CBC? Y/N NO
[2025-03-17 06:07] LABS: AST(SGOT) 17 U/L (<=31); Alanine Aminotransfer ALT/SGPT 8 U/L (<=34); Albumin, Serum 3.7 g/dL (3.5-5.0); Alkaline Phosphatase 70 U/L (35-104); Anion Gap 11 (5-15); BUN 7 mg/dL (4-19); BUN/Creat Ratio 11.8 RATIO (10-20); Calcium,Total 9.4 mg/dL (7.6-11.0); Carbon Dioxide 22.9 mmol/L (21.0-32.0); Chloride 101 mmol/L (98-108); Estimated Creatinine Clearance 163.43 ml/min (50-250); Globulin 2.5 g/dL (2.2-4.2); Glucose 191 mg/dL (70-99); Potassium 4.1 mmol/L (3.3-5.1)
[2025-03-17] MEDS: Magnesium Chloride 64 MG Delay Rel.Tablet 128 MG PO (06:29)
[2025-03-17 08:47] VITALS: BP 106/75; PULSE 81; RESP 16; TEMP 36.9; O2SAT 95
[2025-03-17 08:50] VITALS: PULSE 81
[2025-03-17] MEDS: Metoprolol(XL)Succ 25 MG Tablet PO (08:50)
[2025-03-17] MEDS: buPROPion (XL) 150 MG TABLET.XL PO (08:50)
[2025-03-17] MEDS: Aspirin E.C. 81 MG Tablet PO (08:50)
[2025-03-17] MEDS: Potassium Chloride Oral Tablet 20 MEQ PO (08:51)
[2025-03-17] MEDS: APIXABAN 5 MG TABLET PO (08:52)
--- NOTE | 2025-03-17 10:00 | EKG12_ITS ---
Test Reason : POST PCI Blood Pressure : */* mmHG Vent. Rate : 82 BPM Atrial Rate : 82 BPM P-R Int : 170 ms QRS Dur : 78 ms QT Int : 390 ms P-R-T Axes : 58 -43 3 degrees QTcB Int : 455 ms Normal sinus rhythm Left axis deviation Inferior infarct (cited on or before 30-Jan-2025) Abnormal ECG When compared with ECG of 07-Mar-2025 14:27, Inverted T waves have replaced nonspecific T wave abnormality in Inferior leads Confirmed by DEBRA BRANTLEY, ONEAL ([id number]), scientific editor CRICKET KATHLEEN ([id number]) on 03/21/2025 9:33:03 AM Referred By: Carmencita James Confirmed By: ONEAL JAMES MD
--- NOTE | 2025-03-17 12:38 | PCM.DC.SUM ---
Providers Date of Admission: 03/16/25 Primary Care Physician: Dr. Karena Thompson MD Reason For Visit: Coronary artery disease Diagnosis Discharge Diagnosis (1) Coronary artery disease status post coronary stent insertion: Status: Chronic Code(s): I25.10 - Atherosclerotic heart disease of [place] coronary artery without angina pectoris; Z95.5 - Presence of coronary angioplasty implant and graft Plan: Patient presented for staged PCI of LAD. There was also some thrombus in the prior stent from the circumflex. She underwent thrombectomy and PTCA in the circumflex and the stent placement in the LAD. Patient had an uneventful hospital course and because of the thrombus in the circumflex stent, family history of factor V Leyden, we will switch from aspirin and Brilinta to aspirin Plavix and Eliquis. Medications at Discharge Home Medications cyclobenzaprine 10 mg tablet 10 mg PO DAILY PRN pain 01/28/25 hydroxyzine pamoate 50 mg capsule 50 mg PO TID PRN PRN allergies 01/28/25 metformin 500 mg tablet 1,000 mg PO BID 01/28/25 Held on 03/17/25. Instructions: Resume on 03/19/25. mirtazapine 15 mg tablet 15 mg PO QHS 01/28/25 oxycodone 10 mg tablet 10 mg PO TID PRN PRN pain 01/28/25 aspirin 81 mg tablet,delayed release 81 mg PO BREAKFAST #90 tabs 02/11/25 atorvastatin 40 mg tablet 40 mg PO QHS #90 tabs 02/11/25 bupropion HCl 150 mg 24 hr tablet, extended release 150 mg PO DAILY 02/11/25 insulin lispro 100 unit/mL subcutaneous pen (Humalog KwikPen (U-100) Insulin) 1 sliding scale dose subcut USEASDIRECTD 02/11/25 potassium chloride 20 mEq tablet,extended release (K-Tab) 20 meq PO DAILY #90 tabs 02/11/25 sertraline 100 mg tablet 150 mg PO DAILY 02/11/25 spironolactone 25 mg tablet 12.5 mg (1/2 x 25 mg) PO DAILY #45 tabs 02/11/25 magnesium oxide 400 mg PO TID dose increased due to low MG #270 caps 02/25/25 metoprolol succinate 25 mg tablet,extended release 24 hr 25 mg PO Q12H 03/15/25 insulin glargine U-300 conc 300 unit/mL (3 mL) subcutaneous pen (Toujeo Max U-300 SoloStar) 16 unit subcut DAILY 03/16/25 apixaban 5 mg tablet (Eliquis) 5 mg PO BID 30 days #60 tabs 03/17/25 clopidogrel 75 mg tablet 75 mg PO DAILY #30 tabs 03/17/25 Hospital Course Summary of Care Provided Hospital Course: Patient presented for staged PCI of LAD. There was also some thrombus in the prior stent from the circumflex. She underwent thrombectomy and PTCA in the circumflex and the stent placement in the LAD. Patient had an uneventful hospital course and because of the thrombus in the circumflex stent, family history of factor V Leyden, we will switch from aspirin and Brilinta to aspirin Plavix and Eliquis. Patient is being discharged home in a stable condition. Her treatment plan was discussed with the patient and her in detail. Patient understands the risks and benefits and wishes to continue this approach. Physical Exam Const alert HEENT normocephalic Resp normal respiratory effort Cardio regular rate Weight / BMI Weight Weight: 222 lb Body Mass Index (BMI) 30.9 ABG / Lab / Microbiology Data 03/17/25 05:04 03/17/25 05:04 Laboratory: Laboratory Results - last 24 hr 03/16/25 12:25: POC Glucose 180 H 03/16/25 16:05: POC Glucose 241 H 03/16/25 21:28: POC Glucose 259 H 03/17/25 05:04: WBC 11.3 H, RBC 4.59, Hgb 12.5, Hct 37.5, MCV 81.7, MCH 27.2, MCHC 33.3, RDW Std Deviation 37.9, RDW Coeff of Katrina 12.7, Plt Count 347, MPV 11.1, Sodium 136, Potassium 4.1, Chloride 101, Carbon Dioxide 22.9, Anion Gap 11, BUN 7, Creatinine 0.55 L, Estim Creat Clear Calc 163.43, Est GFR (MDRD) Non-Af 113, BUN/Creatinine Ratio 11.8, Glucose 191 H, Calcium 9.4, Total Bilirubin 0.97, AST 17, ALT 8, Alkaline Phosphatase 70, Total Protein 6.3, Albumin 3.7, Globulin 2.5, Albumin/Globulin Ratio 1.5 03/17/25 06:30: POC Glucose 241 H D/C Instructions DC O2, CPAP, BIPAP Needs Home O2 Discharge instructions: No Meaningful Use Info Meaningful Use Meaningful Use Diagnoses (Choose all that apply): None applicable Discharge Plan Admission Admit Date/Time: 03/16/25 11:51 Primary Reason for Your Visit: CAD status post PCI Attending Provider: Carmencita James Primary Care Provider: Karena Thompson Consulting Providers: Catherine Gutierrez NP Discharge Orders/Prescriptions Prescriptions: New Eliquis 5 mg Tablet 5 mg PO BID 30 Days Qty: 60 11RF clopidogrel 75 mg tablet 75 mg PO DAILY Qty: 30 11RF Continued insulin lispro [Humalog KwikPen Insulin] 100 unit/mL insulin pen 1 sliding scale dose subcut USEASDIRECTD spironolactone 25 mg tablet 12.5 mg PO DAILY Qty: 45 3RF atorvastatin 40 mg tablet 40 mg PO QHS Qty: 90 3RF aspirin 81 mg tablet,delayed release (DR/EC) 81 mg PO BREAKFAST Qty: 90 3RF potassium chloride [K-Tab] 20 mEq tablet extended release 20 meq PO DAILY Qty: 90 3RF cyclobenzaprine 10 mg tablet 10 mg PO DAILY PRN (Reason: pain ) hydroxyzine pamoate 50 mg capsule 50 mg PO TID PRN PRN (Reason: allergies) mirtazapine 15 mg tablet 15 mg PO QHS oxycodone 10 mg tablet 10 mg PO TID PRN PRN (Reason: pain) sertraline 100 mg tablet 150 mg PO DAILY Rx Instructions: on hold bupropion HCl 150 mg tablet extended release 24 hr 150 mg PO DAILY Rx Instructions: on hold metoprolol succinate 25 mg tablet extended release 24 hr 25 mg PO Q12H insulin glargine U-300 conc [Toujeo Max U-300 SoloStar] 300 unit/mL (3 mL) insulin pen 16 unit subcut DAILY magnesium oxide 400 mg magnesium capsule 400 mg PO TID Qty: 270 3RF Held metformin 500 mg tablet 1,000 mg PO BID Hold Instructions: Resume on 03/19/25. Discontinued ticagrelor [Brilinta] 90 mg tablet 90 mg PO BID Qty: 180 3RF Referrals / Follow Up: Karena Thompson MD [Primary Care Provider, Family Practice] Disposition Disposition (needs filled in before D/C Order can be placed): Home, Self Care
--- NOTE | 2025-03-17 12:43 | PCM.DC ---
Discharge Instructions DC O2, CPAP, BIPAP needs Home O2 Discharge instructions: No Dressing / Incision Discharge Activity: Return to Normal Activity (tomorrow. Don't lift anything over 5lbs with right arm till tomorrow) May resume sexual activity in: No Restrictions Dressing / Incision Call your doctor if your incision/area has: Continuous Slow Oozing, Sudden Increased Bleeding, Increased Pain/ Swelling, Increased Redness, Foul Smelling Discharge and Swelling at the incision site Call your doctor if you observe: Fever of 101 or Higher, Coldness, Increased Pain, Numbness or Tingling and Change in Color Remove Dressing in: 1 day Follow Up Care Please Follow Up With: Casey Thorpe MD When: 2-4 weeks Test Results: Test results from this visit will be discussed in further detail at your follow-up appointment, if applicable. Discharge Plan Admission Admit Date/Time: 03/16/25 11:51 Primary Reason for Your Visit: CAD status post PCI Attending Provider: Carmencita James Primary Care Provider: Karena Thompson Consulting Providers: Catherine Gutierrez SENIOR JAVA PROGRAMMER ANALYST Instructions Patient Instructions: Cardiac Catheterization Dc, Cardiac Catheterization Ch, Cardiac Cath Transradial Discharge Orders/Prescriptions Prescriptions: New Eliquis 5 mg Tablet 5 mg PO BID 30 Days Qty: 60 11RF clopidogrel 75 mg tablet 75 mg PO DAILY Qty: 30 11RF Continued insulin lispro [Humalog KwikPen Insulin] 100 unit/mL insulin pen 1 sliding scale dose subcut USEASDIRECTD spironolactone 25 mg tablet 12.5 mg PO DAILY Qty: 45 3RF atorvastatin 40 mg tablet 40 mg PO QHS Qty: 90 3RF aspirin 81 mg tablet,delayed release (DR/EC) 81 mg PO BREAKFAST Qty: 90 3RF potassium chloride [K-Tab] 20 mEq tablet extended release 20 meq PO DAILY Qty: 90 3RF cyclobenzaprine 10 mg tablet 10 mg PO DAILY PRN (Reason: pain ) hydroxyzine pamoate 50 mg capsule 50 mg PO TID PRN PRN (Reason: allergies) mirtazapine 15 mg tablet 15 mg PO QHS oxycodone 10 mg tablet 10 mg PO TID PRN PRN (Reason: pain) sertraline 100 mg tablet 150 mg PO DAILY Rx Instructions: on hold bupropion HCl 150 mg tablet extended release 24 hr 150 mg PO DAILY Rx Instructions: on hold metoprolol succinate 25 mg tablet extended release 24 hr 25 mg PO Q12H insulin glargine U-300 conc [Toujeo Max U-300 SoloStar] 300 unit/mL (3 mL) insulin pen 16 unit subcut DAILY magnesium oxide 400 mg magnesium capsule 400 mg PO TID Qty: 270 3RF Held metformin 500 mg tablet 1,000 mg PO BID Hold Instructions: Resume on 03/19/25. Discontinued ticagrelor [Brilinta] 90 mg tablet 90 mg PO BID Qty: 180 3RF Referrals / Follow Up: Karena Thompson MD [Primary Care Provider, Family Practice] Disposition Disposition (needs filled in before D/C Order can be placed): Home, Self Care
--- NOTE | 2025-03-17 13:17 | CL.I_ITS ---
Patient Name: SERAFIN DONALDSON Study Date: 03/16/2025 Performing: Ollie James MD Ht: 71 inches 180.34 cm : 1975 Wt: 222.3 lbs 100.7 kg Age: 49 Gender: female BSA: 2.2 PROCEDURE(S) PERFORMED IC12-(39517/[id number])JAMILA W/WO PTCA, SINGLE CORONARY ARTERY IC01-(84630)PTCA, SINGLE CORONARY ARTERY CLINICAL PROFILE AND CO-MORBIDITIES Indications: Staged PCI of LAD Heart Failure: None CONCLUSIONS Successful JAMILA to mid LAD. Successful thrombectomy and PTCA alone to mid circumflex. RECOMMENDATIONS DESCRIPTION OF PROCEDURE The patient arrived to the procedure lab. The risks and benefits of the procedure as well as a full description of our services here and current unavailability of surgical backup were fully explained to the patient and/or their significant other prior to the catheterization. The Timeout was completed, verifying the correct patient and procedure. The patient's procedural site was prepped and draped in the usual fashion. Local anesthetic was given subcutaneously to right radial region with Lidocaine 2%. Using a modified Seldinger technique, arterial access was obtained via the right radial artery, a 6Fr sheath was inserted.. XB 3.0 Guide catheter was inserted and engaged into the LCA. BMW Guide wire was advanced to the Circumflex. Priority One inserted Pass # 1 Priority One Removed 3.0 x 15 Emerge Balloon catheter was inserted. Balloon catheter was advanced across lesion in the circumflex, mid. PTCA balloon inflated at 12 atms for 31 secs. PTCA balloon inflated at 12 atms for 20 secs. PTCA balloon inflated at 14 atms for 30 secs. PTCA balloon inflated at 14 atms for 12 secs. BMW Guide wire was repositioned to the LAD Angiogram performed pre balloon dilatation. 2.5 x 20 Emerge Balloon catheter was advanced across lesion in the LAD, mid. PTCA balloon inflated at 8 atms for 30 secs. PTCA balloon inflated at 14 atms for 15 secs. PTCA balloon inflated at 14 atms for 28 secs. Angiogram performed post balloon dilatation. 3.0 x 38 Adeline Drug Eluting stent was inserted. Drug Eluting stent was advanced across the lesion in the LAD, mid. Angiogram performed post stent deployment. Angiogram performed post stent deployment. 2.5 x 8 [place] Drug Eluting stent was advanced across the lesion in the LAD, mid. Angiogram performed post stent deployment. 3.0 x 20 [place] Emerge Balloon catheter was inserted post stent LAD. Angiogram performed post balloon dilatation. The arterial sheath was pulled and a TR Band was applied for hemostasis. 14cc air INTERVENTION INFORMATION LESION SITE: Circumflex (Mid) Lesion Complexity: High/C, chronic total occlusion: No, lesion at bifurcation: Yes, thrombus present: Yes, lesion length: 12 mm, culprit lesion: Yes, Previously treated lesion: Yes, In-stent restenosis: No, Previously treated with a stent: Yes Stent Type: with JAMILA, Timeframe of previous treatment: 1-5 months Pre Stenosis: 80 % Pre intervention MEHRAN flow: 3 Thrombus was noted in the previously deployed circumflex stent. Thrombectomy was performed followed by PTCA to expand the stent further. There was excellent angiographic result. Patient has family history of factor V Leyden and multiple thrombotic episodes in the family. We will switch from aspirin and Brilinta to aspirin Plavix and Eliquis. Will also test for factor V Leyden. Post Stenosis: 0 % Post intervention MEHRAN flow: 3 Lesion Devices: Chinchilla .014 190cm BMW [place] Straight Cordis 6 Fr XB3.0 100cm Guide Catheter Terumo Priority One Aspiration Catheter Jack Sci EMERGE MR 3.00x15 BALLOON LESION SITE: LAD (Mid) Lesion Complexity: High/C, chronic total occlusion: No, lesion at bifurcation: No, thrombus present: No, lesion length: 42 mm, culprit lesion: Yes, Previously treated lesion: No Pre Stenosis: 80 % Pre intervention MEHRAN flow: 3 PROCEDURE: Drug Eluting Stent with pre and post dilatation Post Stenosis: 0 % Post intervention MEHRAN flow: 3 Lesion Devices: Chinchilla .014 190cm BMW [place] Straight Cordis 6 Fr XB3.0 100cm Guide Catheter Jakc Sci EMERGE MR 2.50x20 BALLOON Medtronic 3.0 x 38 ADELINE FRONTIER JAMILA Medtronic 2.50 x 08 ADELINE FRONTIER JAMILA Jack Sci NC EMERGE MR 3.00x20 BALLOON COMPLICATIONS No Complications PROCEDURE MEDICATIONS Fentanyl 50 mcg IV Versed 1 mg IV Versed 1 mg IV Oxygen: 2 L/min via nasal cannula Heparin given IA 03/16/2025 10:19:24 Heparin 6000 unit(s) IV 03/16/2025 10:26:58 Nitro 200 mcg IC 03/16/2025 10:50:27 Zofran 4 mg IV 03/16/2025 09:28:49 SUMMARY OF HEMODYNAMIC DATA Time AIR REST ECG 08:08:17 AO 90/64 (73) SA 10:22:01 AO 124/71 (95) 10:38:55 Signed By Ollie James MD On 03/17/2025 13:16:55 Ollie James MD
[2025-03-17 14:20] VITALS: BP 98/75; PULSE 91; RESP 16; TEMP 36.8; O2SAT 93
--- NOTE | 2025-03-17 14:40 | PHA.DC_ITS ---
Pharmacy [facility] has performed discharge medication counseling for this patient. The patient was counseled on the following discharge medications and changes in medications for homegoing review. - Clopidogrel 75 mg tablet, Apixaban 5 mg tablet The Reason for Use, instructions for use, and potential side effects were reviewed for all new medications. The patient's questions regarding all of their medications were answered. The patient was able to verbally demonstrate an understanding of their discharge medications. Medications at Discharge Home Medications cyclobenzaprine 10 mg tablet 10 mg PO DAILY PRN pain 01/28/25 hydroxyzine pamoate 50 mg capsule 50 mg PO TID PRN PRN allergies 01/28/25 metformin 500 mg tablet 1,000 mg PO BID diabetes 01/28/25 Held on 03/17/25. Instructions: Resume on 03/19/25. mirtazapine 15 mg tablet 15 mg PO QHS mental health 01/28/25 oxycodone 10 mg tablet 10 mg PO TID PRN PRN pain 01/28/25 aspirin 81 mg tablet,delayed release 81 mg PO BREAKFAST heart health #90 tabs 02/11/25 atorvastatin 40 mg tablet 40 mg PO QHS cholesterol #90 tabs 02/11/25 bupropion HCl 150 mg 24 hr tablet, extended release 150 mg PO DAILY mental health 02/11/25 insulin lispro 100 unit/mL subcutaneous pen (Humalog KwikPen (U-100) Insulin) 1 sliding scale dose subcut USEASDIRECTD diabetes 02/11/25 potassium chloride 20 mEq tablet,extended release (K-Tab) 20 meq PO DAILY supplement #90 tabs 02/11/25 sertraline 100 mg tablet 150 mg PO DAILY mental health 02/11/25 spironolactone 25 mg tablet 12.5 mg (1/2 x 25 mg) PO DAILY diuretic #45 tabs 02/11/25 magnesium oxide 400 mg PO TID dose increased due to low MG #270 caps 02/25/25 metoprolol succinate 25 mg tablet,extended release 24 hr 25 mg PO Q12H blood pressure 03/15/25 insulin glargine U-300 conc 300 unit/mL (3 mL) subcutaneous pen (Toujeo Max U- 300 SoloStar) 16 unit subcut DAILY diabetes 03/16/25 apixaban 5 mg tablet (Eliquis) 5 mg PO BID 30 days #60 tabs 03/17/25 clopidogrel 75 mg tablet 75 mg PO DAILY #30 tabs 03/17/25
--- NOTE | 2025-03-17 15:14 | CASEMGMT ---
Pt has an order for CHICHI Nunez to [facility] who states that the pt's copay is 0$. [employer]PLANE [employer] CM updated.
== END 2025-03-17 15:32 | disposition home or self-care (01) ==
LOC: PCU 12:05
PROVIDERS: Nurse Practitioner Gerontology; Admitting Provider Specialist; PCP Family Medicine; Referring Provider Specialist; Visit Provider Specialist
DX: I25.10 Atherosclerotic heart disease of native coronary artery without angina pectoris (principal); I50.9 Heart failure, unspecified; E11.43 Type 2 diabetes mellitus with diabetic autonomic (poly)neuropathy; Z79.4 Long term (current) use of insulin; T82.867A Thrombosis due to cardiac prosthetic devices, implants and grafts, initial encounter; K31.84 Gastroparesis; Z95.5 Presence of coronary angioplasty implant and graft; R06.02 Shortness of breath; Z83.2 Family history of diseases of the blood and blood-forming organs and certain disorders involving the immune mechanism; Z79.84 Long term (current) use of oral hypoglycemic drugs; Z79.82 Long term (current) use of aspirin; Z79.899 Other long term (current) drug therapy; Z79.02 Long term (current) use of antithrombotics/antiplatelets; Z79.01 Long term (current) use of anticoagulants; Y71.2 Prosthetic and other implants, materials and accessory cardiovascular devices associated with adverse incidents
CPT/HCPCS: 36415; 71046; 80053; 81241; 82962; 83735; 85027; 85347; 92920; 92928; 93005; 99152; 99153; 99221; C1757; C1769; C1887; C1894; Q9967; C1725; C1874; C9600; G0378; J2405

== ENCOUNTER → 2025-04-18 | Outpatient (CLI) | payer OTHER, SELFPAY ==
[2025-04-18 16:54] LABS: Anion Gap 10 (5-15); BUN 6 mg/dL (4-19); BUN/Creat Ratio 7.2 RATIO (10-20); Calcium,Total 9.4 mg/dL (7.6-11.0); Carbon Dioxide 26.9 mmol/L (21.0-32.0); Chloride 103 mmol/L (98-108); Glucose 167 mg/dL (70-99); Magnesium 1.7 mg/dL (1.5-2.2); Potassium 4.0 mmol/L (3.3-5.1)
== END | disposition home or self-care (01) ==
LOC: LAB 14:56
PROVIDERS: PCP Family Medicine; Referring Provider Nurse Practitioner Gerontology; Visit Provider Nurse Practitioner Gerontology
DX: E83.42 Hypomagnesemia (principal)
CPT/HCPCS: 36415; 80048; 83735